=== PATIENT | female | born 1960 | race Caucasian/White ===

== ENCOUNTER 2019-03-01 06:00 | Outpatient (RCR) | payer MEDICAID, SELFPAY | END 2019-03-31 00:01 | LOC: GPT 06:00 | PROVIDERS: Family Provider Nurse Practitioner Family; Visit Provider Nurse Practitioner Family | DX: M54.6 Pain in thoracic spine (principal); G89.29 Other chronic pain | CPT/HCPCS: 97110; 97140 ==

== ENCOUNTER → 2019-05-28 09:46 | Outpatient (BNVA) | payer MEDICAID, SELFPAY | PROVIDERS: Family Provider Nurse Practitioner Family; PCP Nurse Practitioner Family; Visit Provider Family Medicine | DX: C50.919 Malignant neoplasm of unspecified site of unspecified female breast (principal) | CPT/HCPCS: 85025 ==

== ENCOUNTER → 2019-06-01 09:17 | Outpatient (BNVA) | payer MEDICAID, SELFPAY | PROVIDERS: Family Provider Nurse Practitioner Family; PCP Nurse Practitioner Family; Visit Provider Nurse Practitioner Family | DX: C50.919 Malignant neoplasm of unspecified site of unspecified female breast (principal) | CPT/HCPCS: 85025 ==

== ENCOUNTER → 2019-06-04 11:59 | Outpatient (BNVA) | payer MEDICAID, SELFPAY | PROVIDERS: Family Provider Nurse Practitioner Family; PCP Nurse Practitioner Family; Visit Provider Family Medicine | DX: C50.919 Malignant neoplasm of unspecified site of unspecified female breast (principal) | CPT/HCPCS: 85025 ==

== ENCOUNTER → 2019-06-11 09:18 | Outpatient (BNVA) | payer MEDICAID, SELFPAY | PROVIDERS: Family Provider Nurse Practitioner Family; PCP Nurse Practitioner Family; Visit Provider Nurse Practitioner Family | DX: C50.919 Malignant neoplasm of unspecified site of unspecified female breast (principal) | CPT/HCPCS: 85025 ==

== ENCOUNTER → 2019-06-15 10:46 | Outpatient (BNVA) | payer MEDICAID, SELFPAY | PROVIDERS: Family Provider Nurse Practitioner Family; PCP Nurse Practitioner Family; Visit Provider Nurse Practitioner Family | DX: C50.919 Malignant neoplasm of unspecified site of unspecified female breast (principal) | CPT/HCPCS: 85025 ==

== ENCOUNTER → 2019-06-18 13:25 | Outpatient (BNVA) | payer MEDICAID, SELFPAY | PROVIDERS: Family Provider Nurse Practitioner Family; PCP Nurse Practitioner Family; Visit Provider Nurse Practitioner Family | DX: C50.919 Malignant neoplasm of unspecified site of unspecified female breast (principal) | CPT/HCPCS: 85025 ==

== ENCOUNTER → 2019-06-25 10:42 | Outpatient (BNVA) | payer MEDICAID, SELFPAY | PROVIDERS: Family Provider Nurse Practitioner Family; PCP Nurse Practitioner Family; Visit Provider Nurse Practitioner Family | DX: C50.919 Malignant neoplasm of unspecified site of unspecified female breast (principal) | CPT/HCPCS: 85025 ==

== ENCOUNTER → 2019-06-29 10:00 | Outpatient (BNVA) | payer MEDICAID, SELFPAY | PROVIDERS: Family Provider Nurse Practitioner Family; PCP Nurse Practitioner Family; Visit Provider Nurse Practitioner Family | DX: C50.919 Malignant neoplasm of unspecified site of unspecified female breast (principal) | CPT/HCPCS: 85025 ==

== ENCOUNTER → 2019-07-02 09:25 | Outpatient (BNVA) | payer MEDICAID, SELFPAY | PROVIDERS: Family Provider Nurse Practitioner Family; PCP Nurse Practitioner Family; Visit Provider Nurse Practitioner Family | DX: C50.919 Malignant neoplasm of unspecified site of unspecified female breast (principal) | CPT/HCPCS: 85025 ==

== ENCOUNTER → 2019-07-09 09:16 | Outpatient (BNVA) | payer MEDICAID, SELFPAY | PROVIDERS: Family Provider Nurse Practitioner Family; PCP Nurse Practitioner Family; Visit Provider Nurse Practitioner Family | DX: C50.919 Malignant neoplasm of unspecified site of unspecified female breast (principal) | CPT/HCPCS: 85025 ==

== ENCOUNTER → 2019-07-13 11:11 | Outpatient (BNVA) | payer MEDICAID, SELFPAY | PROVIDERS: Family Provider Nurse Practitioner Family; PCP Nurse Practitioner Family; Visit Provider Nurse Practitioner Family | DX: C50.919 Malignant neoplasm of unspecified site of unspecified female breast (principal) | CPT/HCPCS: 85025 ==

== ENCOUNTER → 2019-07-16 09:18 | Outpatient (BNVA) | payer MEDICAID, SELFPAY | PROVIDERS: Family Provider Nurse Practitioner Family; PCP Nurse Practitioner Family; Visit Provider Nurse Practitioner Family | DX: C50.919 Malignant neoplasm of unspecified site of unspecified female breast (principal) | CPT/HCPCS: 85025 ==

== ENCOUNTER → 2019-09-25 11:36 | Outpatient (BNVA) | payer MEDICAID, SELFPAY | PROVIDERS: Family Provider Nurse Practitioner Family; PCP Nurse Practitioner Family; Visit Provider Nurse Practitioner Family | DX: R60.0 Localized edema (principal); M25.571 Pain in right ankle and joints of right foot; W10.8XXA Fall (on) (from) other stairs and steps, initial encounter | CPT/HCPCS: 73610; 73630 ==

== ENCOUNTER 2020-01-05 13:21 | Outpatient (CLI) | payer MEDICAID, SELFPAY ==
--- NOTE | 2020-01-05 17:30 | ONC CON_ITS ---
Dr. Giles New Patient Note Patient: Natividad Guillermo Unit #: [id number]: [id number] Dicatated By: Jennifer Giles M.D.Date of Visit: Jan 05, 2020 Onc MED New Patient/Consult Referring Physician: Gino Ruiz M.D. History of Present Illness: Ms. Natividad Guillermo, is a 59-year-old female with history of stage IIIb invasive lobular carcinoma of left breast with skin involvement diagnosed on February 03, 2019 per ultrasound-guided left breast biopsy which confirmed ER VT positive HER-2/colette negative disease with skin involvement confirmed by left upper areola skin biopsy done on March 13, [address]. [address] PET scan done on March 19, 2019 suggestive of hypermetabolic soft tissue within the subareolar and inferior aspect of left breast. No hypermetabolic thoracic adenopathy or distant metastatic disease seen. 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 Patient underwent thyroid sonogram on April 08, 2019 which confirmed multinodular goiter subsequently on April 16, 2019 underwent ultrasound-guided aspiration of thyroid nodule suggestive of benign lesion.Patient also underwent MRI scan of the brain on March 13, 2019 which was suggestive of 2 adjacent small enhancing foci of abnormal signal at the left anterior superior frontal cortex and subcortical white matter. Metastatic disease cannot be excluded. Follow-up MRI scan was suggested, on June 08, 2019 patient underwent repeat MRI scan of brain and it was reported negative. Patient underwent neoadjuvant chemotherapy in dose dense fashion with Adriamycin Cytoxan x4 followed by dose dense Taxol by weekly x4 Starting on March 19, 2019 and completed on July 06, 2019 subsequently underwent bilateral mastectomy on July 28, 2019 which showed persistent invasive moderately differentiated lobular carcinoma measuring at least 3 x 2 cm with a persistent direct involvement of dermis of skin without overlying skin ulceration. At least 3 additional nodules of invasive moderately differentiated lobular carcinoma found on random sections of surrounding breast parenchyma measuring 7 mm, 8 mm and 8 mm.And right breast mastectomy showed fibrocystic changes with fibrosis, microcyst formation no evidence of malignancy. Margins free of carcinoma with invasive carcinoma located 7 mm from the inferior skin margin and 1 cm or greater from the other margins. Lymph nodes, left axillary, sentinel lymph node biopsy showed metastatic lobular carcinoma in 1 of 2 lymph nodes, measures 5 mm in the greatest dimension and and also extracapsular invasion identified. Started on Femara 2.5 mg on August 17, 2019, patient was offered postmastectomy radiation therapy to left breast and axilla, as per patient because of transportation issue and due to coronavirus the wound at her hospital stay with her, she did not pursue radiation therapy there. As far as ascending thoracic aorta aneurysm is concerned patient underwent CT scan of chest on April 12, 2019 which shows no evidence of pulmonary embolism but saccular aneurysm involving the ascending thoracic aorta. Patient was referred to cardiothoracic surgeon whom she saw on April 16, 2019 as per patient she was advised to finish her recommended treatment for breast cancer then will be evaluated again. Came for follow-up, patient denies any specific complaint except persistent peripheral neuropathy involving bilateral fingertips and feet otherwise no fever chills, no nausea or vomiting, no diarrhea constipation, no new bony pains, tolerating Femara along with vitamin D and calcium supplement well. Past Medical History: Ms. Guillermo's medical history consists of anemia due to chemotherapy, anxiety, ascending aortic aneurysm, cataract, chemo induced neuropathy, chronic kidney disease (stage III), chronic low back pain, degenerative disease of the spine, depression, gastroesophageal reflux disease, hypothyroidism, nontoxic mulinodular goiter, obstructive sleep apnea, postural orthostatic tachycardia syndrome, and thyroid nodule. Past Surgical History: Ms. Guillermo's surgical/procedural history consists of breast biopsy, cholecystectomy, hysterectomy, knee replacement, tonsillectomy, tubal ligation, portacath placement in 2019, and mastectomy in 2019 - bilateral. Medications: Calcium 1 Tablet (of 600 mg) Oral daily, Cetirizine HCl 1 Tablet (of 10 mg) Oral daily, Dicyclomine HCl 1 CA 125 Units/mL (of 10 mg) Capsule Oral PRN, DULoxetine HCl 1 Capsule (of 30 mg) Capsule Delayed Release Particles Oral daily, Ferrous Sulfate (325 (65 fe) mg) Tablet Oral Take as Directed, Flonase 1 [place](s) (of 50 mcg/act) Suspension Nasal PRN, Gabapentin 2 Capsule (of 100 mg) Oral b.i.d., Letrozole 1 Tablet (of 2.5 mg) Oral daily, Montelukast Sodium 1 Tablet (of 10 mg) Oral daily, Naproxen 1 Capsule (of 500 mg) Tablet, enteric coated Oral PRN, Omeprazole 1 CA 125 Units/mL (of 40 mg) Capsule Delayed Release Oral daily, Oxybutynin Chloride 1 Tablet (of 10 mg) Oral daily, Probiotic 1 Capsule Oral daily, Vitamin B Complex 1 Tablet Oral daily, Vitamin D3 1 Tablet (of 5000 Units) Oral q 7 days Allergies: anesthesia, Penicillins, and Sulfa Antibiotics. Social History: Ms. Guillermo is single. Ms. Guillermo no longer smokes. She has no history of drinking. Family History: Ms. Guillermo's mother at age 86: heart disease. Ms. Guillermo's father at age 72: idiopathic thrombocytopenic purpura. Ms. Guillermo has 2 sisters: 2 . Ms. Guillermo's first sister's non-hodgkins. unsure of what cancer the other sister had. Review Of Symptoms: Review of Systems is not available for this patient. Vital Signs: Performed on Jan 05, 2020 14:27: 4, 28.62, 2.18 sq.m, 72.00 in, 99 %, 80 /min, 20 /min, 131/68 mm(hg), 97.6 F (LOW), and 211.0 lbs (HIGH). Performance Status: 1 - No physically strenuous activity, but ambulatory and able to carry out light or sedentary work (e.g. office work, light house work). (ECOG) Physical Examination: [, No mouth sores, no thrush, no jaundice, chest exam shows bilateral mastectomy with well-healed post mastectomy scars.^Respiratory - Lungs are clear to auscultation, Cardiovascular - Regular rate and rhythm of heart, Gastrointestinal - Soft, bowel sounds present, Extremities - No visible edema or rash. Lab/Imaging: Most recent lab results are not available for this patient. Impression: Invasive moderately differentiated lobular carcinoma of the left breast diagnosed on February 03, 2019 per ultrasound-guided biopsy of left breast initial molecular profiling showed ER 93% VT 85% HER-2/colette negative. Underwent left upper areola skin biopsy on March 13, 2019 which confirmed invasive moderately differentiated lobular carcinoma involving the dermis of the skin. T4c lesion CT PET scan done on March 19, 2019 showed hypermetabolic soft tissue within the subareolar and inferior aspect of left breast. No hypermetabolic thoracic adenopathy or distant mets seen. Status post neoadjuvant chemotherapy with dose dense Adriamycin/Cytoxan followed by dose dense Taxol, started on March 19, 2019 and completed on July 06, 2019. Subsequently underwent bilateral mastectomy on July 28, 2019 which showed persistent invasive moderately differentiated lobular carcinoma measuring at least 3 x 2 cm with persistent direct involvement of dermis of skin without overlying skin ulceration. At least 3 additional nodules of invasive moderately differentiated lobular carcinoma found in random sections of surrounding breast parenchyma measuring 7 mm, 8 mm, 8 mm. With clear margins but invasive carcinoma located 7 mm from the inferior skin margin. Left axillary sentinel lymph node biopsy confirmed 1 out of 2 positive lymph nodes metastasis measuring 5 mm in greatest dimension showed extracapsular invasion. Right breast mastectomy shows no evidence of malignancy fibrocystic changes. Started on Femara 2.5 mg daily for 5 years on August 17, 2019. Incidental finding of thyroid nodules underwent ultrasound-guided aspiration of thyroid on April 16, 2025 suggestive of benign lesion. Incidental finding of saccular aneurysm involving ascending thoracic aorta, seen by cardiothoracic surgery on April 16, 2019 in [facility]. Acquired hypothyroidism Peripheral neuropathy due to chemotherapy Depression. Plan: Discussed with patient regarding her disease status and treatment options and follow-up plans, patient is a high risk for local recurrence being having T4 lesion and lymph node biopsy shows extracapsular extension, as per patient she was offered postmastectomy radiation therapy but because of traveling and due to coronavirus, her could not stay with her in [place] so she decided not to proceed with radiation at that time, but she would do if is needed. In that case we will refer her to radiation oncology for evaluation for post mastectomy radiation therapy for better local control, case was discussed with radiation oncology and we will order MRI scan of anterior chest and axilla before her visit to radiation oncology. In the meantime she will continue with Femara 2.5 mg daily along with vitamin D and calcium supplements. And patient has 4 daughters, in that case we will also consider genetic testing BRCA 1 and 2, as per patient she was offered this testing in [place] but at that time she could not afford $500 for the test. And also obtain baseline DEXA scan as patient is on aromatase inhibitor and 1 of the side effect is bone demineralization.And will also continue with port maintenance on monthly basis. Patient will return to clinic in 3 months with CBC CMP and DEXA scan. Signed By: Jennifer Giles M.D. <<Signature on File>>
== END 2020-01-05 13:22 | disposition home or self-care (01) ==
LOC: ONCMED 13:28
PROVIDERS: PCP Nurse Practitioner Family; Visit Provider Internal Medicine Hematology & Oncology
DX: C50.812 Malignant neoplasm of overlapping sites of left female breast (principal); C77.3 Secondary and unspecified malignant neoplasm of axilla and upper limb lymph nodes; Z17.0 Estrogen receptor positive status [ER+]; Z90.13 Acquired absence of bilateral breasts and nipples; E03.9 Hypothyroidism, unspecified; G62.0 Drug-induced polyneuropathy; T45.1X5D Adverse effect of antineoplastic and immunosuppressive drugs, subsequent encounter; F32.9 Major depressive disorder, single episode, unspecified; Z79.811 Long term (current) use of aromatase inhibitors; E04.1 Nontoxic single thyroid nodule; I71.2 Thoracic aortic aneurysm, without rupture; Z92.21 Personal history of antineoplastic chemotherapy
CPT/HCPCS: 36591; 99203

== ENCOUNTER 2020-01-15 10:58 | Outpatient (CLI) | payer MEDICAID, SELFPAY ==
--- NOTE | 2020-01-15 11:14 | XR_ITS ---
WS: [id number] Bone mineral density performed on a [employer] IDXA 01/15/2020 Clinical data: ASYMPTOMATIC POSTMENOPAUSAL STATE Findings: The first 4 lumbar vertebral bodies demonstrated the bone mineral density of 1.023 g/cm2 for a young adult T score of -1.3. Measurement of the left hip reveals a bone mineral density of 0.846 g/cm2 with a young adult T score of -1.3. Measurement of the right hip reveals the bone mineral density of 0.795 g/cm2 for young adult T score of -1.7. XR/XR DEXA axial skeleton* [id number] Impression: Osteopenia of the lumbar spine and both hips.
== END 2020-01-15 10:59 | disposition home or self-care (01) ==
PROVIDERS: PCP Nurse Practitioner Family; Visit Provider Internal Medicine Hematology & Oncology
DX: Z78.0 Asymptomatic menopausal state (principal); M85.88 Other specified disorders of bone density and structure, other site
CPT/HCPCS: 77080

== ENCOUNTER → 2020-01-26 14:32 | Outpatient (BNVA) | payer MEDICAID, SELFPAY | PROVIDERS: PCP Nurse Practitioner Family; Visit Provider Nurse Practitioner Family | DX: M25.511 Pain in right shoulder (principal); M25.611 Stiffness of right shoulder, not elsewhere classified; S49.91XA Unspecified injury of right shoulder and upper arm, initial encounter; Z68.29 Body mass index [BMI] 29.0-29.9, adult | CPT/HCPCS: 73030 ==

== ENCOUNTER 2020-02-05 06:12 | Outpatient (CLI) | payer MEDICAID, SELFPAY | END 2020-02-05 06:13 | disposition home or self-care (01) | LOC: ONCMED 06:12 | PROVIDERS: PCP Nurse Practitioner Family; Visit Provider Internal Medicine Hematology & Oncology | DX: Z45.2 Encounter for adjustment and management of vascular access device (principal) | CPT/HCPCS: 96523 ==

== ENCOUNTER 2020-03-03 14:14 | Outpatient (CLI) | payer MEDICAID, SELFPAY ==
[2020-03-03 15:04] LABS: Basophils # 0.1 10^3/uL (0.0-0.1); Eosinophils # 0.2 10^3/uL (0.0-0.8); Eosinophils % 2.7 %; Hematocrit 34.6 % (37.0-47.0); Hemoglobin 11.8 g/dL (11.5-15.3); Lymphocytes # 1.7 10^3/uL (0.8-4.8); Lymphocytes % 23.5 %; Mean Corpuscular HGB Conc 34.1 g/dL (30.0-36.0); Mean Corpuscular Hemoglobin 32.2 pg (28.0-34.0); Mean Corpuscular Volume 94.3 fL (81-99); Mean Platelet Volume 8.7 fL (7.4-10.4); Monocytes # 0.7 10^3/uL (0.2-0.9); Monocytes % 9.6 %; Neutrophils # 4.53 10^3/uL (1.8-7.7); Nucleated Red Blood Cells % 0 %; Platelet Count 221 10^3/cmm (130-400); Red Blood Count 3.67 10^6/uL (4.1-5.3); Red Cell Distribution Width 11.9 % (12.1-15.1); White Blood Count 7.3 10^3/uL (4.0-10.0)
[2020-03-03 16:00] LABS: Alanine Aminotransferase 49 U/L (0-33); Albumin Level 4.2 g/dL (3.5-5.2); Alkaline Phosphatase 96 IU/L (35-105); Anion Gap 14.8 (5-19); Aspartate Amino Transferase 30 U/L (0-32); Blood Urea Nitrogen 16 mg/dL (6-20); Calcium 9.3 mg/dL (8.5-10.5); Carbon Dioxide 26 mmol/L (22-29); Chloride 101 mmol/L (98-107); Globulin 2.5 g/dL (1.3-4.6); Glucose 119 mg/dL (65-115); Osmolality Calculated 288 mOsm/kg (285-295); Potassium 3.8 mmol/L (3.5-5.1); Sodium 138 mmol/L (136-145); Total Bilirubin 0.2 mg/dL (0.15-1.2); Total Protein 6.7 g/dL (6.6-8.7)
== END 2020-03-03 14:15 | disposition home or self-care (01) ==
LOC: ONCMED 14:16
PROVIDERS: PCP Nurse Practitioner Family; Visit Provider Internal Medicine Hematology & Oncology
DX: C50.812 Malignant neoplasm of overlapping sites of left female breast (principal); Z17.0 Estrogen receptor positive status [ER+]; Z78.0 Asymptomatic menopausal state
CPT/HCPCS: 36591; 80053; 85025

== ENCOUNTER → 2020-03-14 12:58 | Outpatient (BNVA) | payer MEDICAID, SELFPAY | PROVIDERS: PCP Nurse Practitioner Family; Visit Provider Family Medicine | DX: G89.29 Other chronic pain (principal); M54.2 Cervicalgia; M47.892 Other spondylosis, cervical region | CPT/HCPCS: 72040 ==

== ENCOUNTER 2020-04-18 05:40 | Outpatient (RCR) | payer MEDICAID, SELFPAY ==
[2020-04-13 08:52] LABS: Basophils # 0.1 10^3/uL (0.0-0.1); Basophils % 0.9 %; Eosinophils # 0.1 10^3/uL (0.0-0.8); Eosinophils % 2.2 %; Hematocrit 37.1 % (37.0-47.0); Lymphocytes # 1.9 10^3/uL (0.8-4.8); Lymphocytes % 30.2 %; Mean Corpuscular HGB Conc 32.3 g/dL (30.0-36.0); Mean Corpuscular Hemoglobin 31.3 pg (28.0-34.0); Mean Corpuscular Volume 96.9 fL (81-99); Monocytes # 0.7 10^3/uL (0.2-0.9); Monocytes % 10.2 %; Neutrophils # 3.56 10^3/uL (1.8-7.7); Nucleated Red Blood Cells % 0 %; Platelet Count 223 10^3/cmm (130-400); Red Blood Count 3.83 10^6/uL (4.1-5.3); Red Cell Distribution Width 12.1 % (12.1-15.1); White Blood Count 6.4 10^3/uL (4.0-10.0)
[2020-04-13 09:23] LABS: Alanine Aminotransferase 53 U/L (0-33); Alkaline Phosphatase 120 IU/L (35-105); Anion Gap 14.7 (5-19); Aspartate Amino Transferase 29 U/L (0-32); Blood Urea Nitrogen 12 mg/dL (6-20); Calcium 9.4 mg/dL (8.5-10.5); Carbon Dioxide 28 mmol/L (22-29); Chloride 100 mmol/L (98-107); Glomerular Filtration Rate 50.8 mL/min (90-130); Glucose 204 mg/dL (65-115); Osmolality Calculated 294 mOsm/kg (285-295); Potassium 3.7 mmol/L (3.5-5.1); Sodium 139 mmol/L (136-145); Total Bilirubin 0.2 mg/dL (0.15-1.2)
--- NOTE | 2020-04-13 13:36 | ONC FU_ITS ---
Dr. Giles follow up note Patient: Natividad Guillermo Unit #: [id number]: [id number] Dicatated By: Jennifer Giles M.D.Date of Visit:Apr 13, 2020 Onc Med Follow-up/Prog Note History of Present Illness: Ms. Natividad Guillermo, is a 59-year-old female with history of stage IIIb invasive lobular carcinoma of left breast with skin involvement diagnosed on February 03, 2019 per ultrasound-guided left breast biopsy which confirmed ER AL positive HER-2/colette negative disease with skin involvement confirmed by left upper areola skin biopsy done on March 13, 2019. Patient underwent CT PET scan done on March 19, 2019 suggestive of hypermetabolic soft tissue within the subareolar and inferior aspect of left breast. No hypermetabolic thoracic adenopathy or distant metastatic disease seen. 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 Patient underwent thyroid sonogram on April 08, 2019 which confirmed multinodular goiter subsequently on April 16, 2019 underwent ultrasound-guided aspiration of thyroid nodule suggestive of benign lesion.Patient also underwent MRI scan of the brain on March 13, 2019 which was suggestive of 2 adjacent small enhancing foci of abnormal signal at the left anterior superior frontal cortex and subcortical white matter. Metastatic disease cannot be excluded. Follow-up MRI scan was suggested, on June 08, 2019 patient underwent repeat MRI scan of brain and it was reported negative. Patient underwent neoadjuvant chemotherapy in dose dense fashion with Adriamycin Cytoxan x4 followed by dose dense Taxol by weekly x4 Starting on March 19, 2019 and completed on July 06, 2019 subsequently underwent bilateral mastectomy on July 28, 2019 which showed persistent invasive moderately differentiated lobular carcinoma measuring at least 3 x 2 cm with a persistent direct involvement of dermis of skin without overlying skin ulceration. At least 3 additional nodules of invasive moderately differentiated lobular carcinoma found on random sections of surrounding breast parenchyma measuring 7 mm, 8 mm and 8 mm.And right breast mastectomy showed fibrocystic changes with fibrosis, microcyst formation no evidence of malignancy. Margins free of carcinoma with invasive carcinoma located 7 mm from the inferior skin margin and 1 cm or greater from the other margins. Lymph nodes, left axillary, sentinel lymph node biopsy showed metastatic lobular carcinoma in 1 of 2 lymph nodes, measures 5 mm in the greatest dimension and and also extracapsular invasion identified. Started on Femara 2.5 mg on August 17, 2019, patient was offered postmastectomy radiation therapy to left breast and axilla, as per patient because of transportation issue and due to coronavirus the wound at her hospital stay with her, she did not pursue radiation therapy there. As far as ascending thoracic aorta aneurysm is concerned patient underwent CT scan of chest on April 12, 2019 which shows no evidence of pulmonary embolism but saccular aneurysm involving the ascending thoracic aorta. Patient was referred to cardiothoracic surgeon whom she saw on April 16, 2019 as per patient she was advised to finish her recommended treatment for breast cancer then will be evaluated again. MRI scan of the breast done on February 19, 2020 shows no suspicious activity in the bilateral breast, patient is status post bilateral mastectomy DEXA scan done on January 15, 2020 showed osteopenia of lumbar spine and both hips tolerating Femara along with vitamin D and calcium supplement Came for follow-up, denies any specific complaints, no fever chills, no nausea or vomiting, no diarrhea constipation, no new bony pains patient has chronic peripheral neuropathy for which she is taken gabapentin as well as hydrocodone as needed basis., She is tolerating Femara/vitamin D and calcium supplement and also trying 'natural'/alternative therapy Medications: Calcium 1 Tablet (of 600 mg) Oral daily, Cetirizine HCl 1 Tablet (of 10 mg) Oral daily, Dicyclomine HCl 1 CA 125 Units/mL (of 10 mg) Capsule Oral PRN, DULoxetine HCl 1 Capsule (of 30 mg) Capsule Delayed Release Particles Oral daily, Ferrous Sulfate (325 (65 fe) mg) Tablet Oral Take as Directed, Flonase 1 Archie(s) (of 50 mcg/act) Suspension Nasal PRN, Gabapentin 2 Capsule (of 100 mg) Oral b.i.d., Letrozole 1 Tablet (of 2.5 mg) Oral daily, Montelukast Sodium 1 Tablet (of 10 mg) Oral daily, Naproxen 1 Capsule (of 500 mg) Tablet, enteric coated Oral PRN, Omeprazole 1 CA 125 Units/mL (of 40 mg) Capsule Delayed Release Oral daily, Oxybutynin Chloride 1 Tablet (of 10 mg) Oral daily, Probiotic 1 Capsule Oral daily, Vitamin B Complex 1 Tablet Oral daily, Vitamin D3 1 Tablet (of 5000 Units) Oral q 7 days Allergies: anesthesia, Penicillins, and Sulfa Antibiotics. Review of Systems: Review of Systems is not available for this patient. Vital Signs: Performed on Apr 13, 2020 09:35 Height - 72.00 in Weight - 208 lbs (LOW) BSA - 2.17 sq.m BMI - 28.21 Temperature - 98.2 F (LOW) Pulse - 96 /min Respiration - 20 /min BP - 146/80 mm(hg) (HIGH) O2 Sat - 98 % Pain - 5 Performance Status: 1 - No physically strenuous activity, but ambulatory and able to carry out light or sedentary work (e.g. office work, light house work). (ECOG) Physical Examination: Respiratory - Lungs are clear to auscultation, Cardiovascular - Regular rate and rhythm of heart, Gastrointestinal - Soft, bowel sounds present, Extremities - No visible edema or rash. Lab/Imaging: Test performed on Mar 03, 2020 14:50 Sodium 138 mmol/L Potassium 3.8 mmol/L Chloride 101 mmol/L CO2 26 mmol/L Anion Gap 14.8 BUN 16 mg/dL Creatinine 1.2 mg/dL Cr Clearance (Est) 76.2700 mL/min eGFR 46.0 mL/min Glucose 119 mg/dL Osmolality - Calculated 288 mOsm/kg Calcium 9.3 mg/dL Protein, Total 6.7 g/dL Albumin 4.2 g/dL Globulin 2.5 g/dL Bilirubin, Total 0.2 mg/dL ALT (SGPT) 49 U/L AST (SGOT) 30 U/L Alkaline Phosphatase 96 IU/L WBC 7.3 10 3/uL RBC 3.67 10 6/uL HGB 11.8 g/dL HCT 34.6 % MCV 94.3 fL MCH 32.2 pg MCHC 34.1 g/dL RDW 11.9 % Platelet Count 221 10 3/cmm MPV 8.7 fL Neutrophils 4.53 10 3/uL Lymphocytes 1.7 10 3/uL Monocytes 0.7 10 3/uL Eosinophils 0.2 10 3/uL Basophils 0.1 10 3/uL Neutrophil % 62.0 % Lymphocyte % 23.5 % Monocyte % 9.6 % Eosinophil % 2.7 % Basophils % 1.0 % NRBC % 0 % Impression: Invasive moderately differentiated lobular carcinoma of the left breast diagnosed on February 03, 2019 per ultrasound-guided biopsy of left breast initial molecular profiling showed ER 93% AL 85% HER-2/colette negative. Underwent left upper areola skin biopsy on March 13, 2019 which confirmed invasive moderately differentiated lobular carcinoma involving the dermis of the skin. T4c lesion CT PET scan done on March 19, 2019 showed hypermetabolic soft tissue within the subareolar and inferior aspect of left breast. No hypermetabolic thoracic adenopathy or distant mets seen. Status post neoadjuvant chemotherapy with dose dense Adriamycin/Cytoxan followed by dose dense Taxol, started on March 19, 2019 and completed on July 06, 2019. Subsequently underwent bilateral mastectomy on July 28, 2019 which showed persistent invasive moderately differentiated lobular carcinoma measuring at least 3 x 2 cm with persistent direct involvement of dermis of skin without overlying skin ulceration. At least 3 additional nodules of invasive moderately differentiated lobular carcinoma found in random sections of surrounding breast parenchyma measuring 7 mm, 8 mm, 8 mm. With clear margins but invasive carcinoma located 7 mm from the inferior skin margin. Left axillary sentinel lymph node biopsy confirmed 1 out of 2 positive lymph nodes metastasis measuring 5 mm in greatest dimension showed extracapsular invasion. Right breast mastectomy shows no evidence of malignancy fibrocystic changes. Started on Femara 2.5 mg daily for 5 years on August 17, 2019. Incidental finding of thyroid nodules underwent ultrasound-guided aspiration of thyroid on April 16, 2025 suggestive of benign lesion. Incidental finding of saccular aneurysm involving ascending thoracic aorta, seen by cardiothoracic surgery on April 16, 2019 in [facility]. Acquired hypothyroidism Peripheral neuropathy due to chemotherapy Depression. MRI scan of the breast done on February 19, 2020 showed no evidence of suspicious lesion seen in bilateral breast/chest, patient status post bilateral mastectomy DEXA scan done on January 15, 2020 shows osteopenia of the lumbar spine and both hips. Plan: Discussed with patient regarding her labs white blood count 6.4 hemoglobin 12 hematocrit 37.1 platelets 223,000 CMP within normal limit except glucose 204 Clinically, patient is doing well with no new signs symptom suggestive of recurrence of disease. Her follow-up lab work-up is within normal range except hyperglycemia. Patient was referred to radiation oncology in [place] but because of inconvenience, she was supposed to see radiation oncology in [place] with MRI scan of the bilateral breast but patient decided not to see radiation oncology after MRI scan of the breast. Discussed with patient regarding risk of local recurrence and locally advanced disease specially T4 lesion, patient reluctantly agreed to see radiation oncology now. So we will refer her to radiation oncology for evaluation regarding postmastectomy radiation therapy. In the meantime she will continue with Femara and vitamin D and calcium supplement, her DEXA scan shows mild osteopenia and patient was advised to maintain moderate exercise and vitamin D and calcium supplement, it may improve her osteopenia if not then will discuss with her regarding biphosphonate as patient is on Femara she is high risk for developing osteoporosis in the future. Patient is also trying alternative/naturopathic and patient was informed there is no available data regarding interaction between femara and natural herbs, as some herbs especially if they contain estrogen like agents may interfere with effectiveness of hormonal therapy with Femara or may increase toxicity, patient is aware of risk versus benefits with multimodalities. She will return to clinic in 4 months with CBC CMP.And patient is considering her port removal at [facility] in [place] Signed By: Jennifer Giles M.D. <<Signature on File>>
--- NOTE | 2020-04-18 15:05 | N.ONRAD NP_ITS ---
Radiation Oncology Consultation Patient Name: Natividad Guillermo Date of : 1960 Date of Service: 04/18/2020 Attending Physician: Anand Pierson M.D. Natividad Guillermo was seen in consultation this afternoon at the request of Brooke Giles M.D. for evaluation regarding potential post-mastectomy radiotherapy for the management of her newly advanced breast cancer. She presented with two palpable left breast masses. Bilateral diagnostic mammography ordered on January 19, 2019 revealed a 3 cm spiculated mass in the left breast. Ultrasonography confirmed within the 2:00 to 3:00 position of the left breast, 4 cm from the nipple, a spiculated mass measuring 2.9 cm x 2.8 cm with subareolar thickening of the nipple associated with retraction of the nipple. A core needle biopsy obtained on February 03, 2019 diagnosed a grade 2 invasive lobular carcinoma. The breast cancer prognostic profile was positive for estrogen receptor (93%) and progesterone receptor (85%), estrogen receptor, but negative for HER-2 (no Ki-67 reported). A skin biopsy of the left upper areola completed on 2018 demonstrated lobular carcinoma. A PET CT ordered on March 19, 2019 demonstrated FDG activity in the left breast corresponding to the known breast cancer without hypermetabolic distant metastases (clinical stage IIIB - T4dN0). MRI of the brain requested on March 30, 2019 identified 2 adjacent small enhancing foci of abnormal signal in the left crystal-superior frontal cortex. Neoadjuvant chemotherapy (dose dense Adriamycin and cyclophosphamide for 4 cycles and paclitaxel for 4 cycles; Gino Ruiz M.D.-medical oncologist at [facility] in [place], [place]) was administered between the dates of March 19, 2019 through July 06, 2019 A repeat MR acquired on June 08, 2019 failed to identify prior lesions. A bilateral mastectomy with a left sentinel lymph node biopsy was performed on July 28, 2019 by Hansel Short D.O. The pathology report (personally reviewed in [facility]) diagnosed a persistent grade 2 multifocal invasive lobular carcinoma measuring 3 cm (dermis involved-no ulceration) with two harvested sentinel lymph nodes harboring 1 macrometastasis measuring 5 mm with extranodal extension. All surgical margins were negative (7 mm from skin -stage yIIIB ???T4dN1a). The right mastectomy specimen did not identify malignancy. She refused post-mastectomy radiotherapy. An MRI of the lateral chest garcia conducted on February 19, 2020 demonstrated no suspicious abnormality within the right or left chest garcia. I reviewed with the patient her AJCC initial clinical stage IIIB (T4dN0) breast cancer, in addition to her pathological stage yIIIB - T4dN1a. I also discussed The National Comprehensive Cancer Network Guidelines for post-operative radiotherapy in patients with positive lymph node metastases. In addition, I described the classic studies by the [employer] [facility] and the Early Breast Cancer Trialists??? Collaborative Group. She is aware that these studies demonstrated an overall survival improvement in patients treated with post-mastectomy radiotherapy. Of note, a meta-analysis published in the Radiotherapy and Oncology Journal indicated that increased wait time for patients who had a delay in implementing radiotherapy there was a decrease local regional control (HR 1.11). The recent MRI failing to identify recurrent disease is reassuring. I recommend a 5 week course of chest wall and regional lymph node radiotherapy. A computed tomographic scan in the treatment position will be acquired for radiotherapy planning. The potential toxicity of post-mastectomy radiotherapy was also addressed. The patient has verbalized understanding would like to discuss treatment with her family. Signed by: Dr. Anand Pierson 04/18/2020 3:04:04 PM
== END 2020-05-01 23:59 | disposition home or self-care (01) ==
LOC: ONCMED 05:40
PROVIDERS: Internal Medicine Hematology & Oncology; PCP Nurse Practitioner Family; Visit Provider Radiology Radiation Oncology
DX: C50.812 Malignant neoplasm of overlapping sites of left female breast (principal); Z17.0 Estrogen receptor positive status [ER+]; C77.8 Secondary and unspecified malignant neoplasm of lymph nodes of multiple regions; E04.2 Nontoxic multinodular goiter; I71.4 Abdominal aortic aneurysm, without rupture; E03.9 Hypothyroidism, unspecified; G62.0 Drug-induced polyneuropathy; T45.1X5A Adverse effect of antineoplastic and immunosuppressive drugs, initial encounter; F32.9 Major depressive disorder, single episode, unspecified; R73.9 Hyperglycemia, unspecified; Z78.0 Asymptomatic menopausal state; Z79.899 Other long term (current) drug therapy
CPT/HCPCS: 36591; 80053; 85025; 99205; 99214

== ENCOUNTER → 2020-04-19 10:26 | Outpatient (BNVA) | payer MEDICAID, SELFPAY | PROVIDERS: PCP Nurse Practitioner Family; Referring Provider Internal Medicine Hematology & Oncology; Visit Provider Anesthesiology | DX: C50.919 Malignant neoplasm of unspecified site of unspecified female breast (principal); M25.511 Pain in right shoulder; M25.611 Stiffness of right shoulder, not elsewhere classified; C80.1 Malignant (primary) neoplasm, unspecified; G63 Polyneuropathy in diseases classified elsewhere; Z79.891 Long term (current) use of opiate analgesic | CPT/HCPCS: 99204 ==

== ENCOUNTER 2020-05-04 06:00 | Outpatient (RCR) | payer MEDICAID, SELFPAY | END 2020-05-29 23:59 | disposition home or self-care (01) | LOC: GPT 06:00 | PROVIDERS: PCP Nurse Practitioner Family; Referring Provider Nurse Practitioner Family; Visit Provider Nurse Practitioner Family | DX: M54.2 Cervicalgia (principal); G89.29 Other chronic pain | CPT/HCPCS: 97110; 97140; 97162; 97530 ==

== ENCOUNTER → 2020-05-25 10:23 | Outpatient (BNVA) | payer MEDICAID, SELFPAY | PROVIDERS: PCP Nurse Practitioner Family; Visit Provider Anesthesiology | DX: G89.29 Other chronic pain (principal); M79.643 Pain in unspecified hand; M79.673 Pain in unspecified foot; M25.511 Pain in right shoulder; M25.611 Stiffness of right shoulder, not elsewhere classified; M54.2 Cervicalgia; C80.1 Malignant (primary) neoplasm, unspecified; G63 Polyneuropathy in diseases classified elsewhere; Z79.891 Long term (current) use of opiate analgesic | CPT/HCPCS: 99214 ==

== ENCOUNTER → 2020-06-06 08:11 | Outpatient (BNVA) | payer MEDICAID, SELFPAY | PROVIDERS: PCP Nurse Practitioner Family; Referring Provider Nurse Practitioner Family; Visit Provider Internal Medicine | DX: E04.1 Nontoxic single thyroid nodule (principal); E06.3 Autoimmune thyroiditis; G62.9 Polyneuropathy, unspecified; H53.2 Diplopia; M79.10 Myalgia, unspecified site | CPT/HCPCS: 99205 ==

== ENCOUNTER → 2020-06-10 09:29 | Outpatient (BNVA) | payer MEDICAID, SELFPAY | PROVIDERS: PCP Nurse Practitioner Family; Visit Provider Dermatology | DX: E04.9 Nontoxic goiter, unspecified (principal); G62.9 Polyneuropathy, unspecified; E06.3 Autoimmune thyroiditis; I71.9 Aortic aneurysm of unspecified site, without rupture; D50.9 Iron deficiency anemia, unspecified; M79.10 Myalgia, unspecified site | CPT/HCPCS: 80053; 80061; 82306; 82607; 82728; 83036; 83516; 83550; 84439; 84443; 85025 ==

== ENCOUNTER 2020-06-30 14:32 | Outpatient (CLI) | payer MEDICAID, SELFPAY ==
--- NOTE | 2020-06-30 15:00 | US_ITS ---
WS: [id number] THYROID ULTRASOUND (TI-RADS CRITERIA) History: Goiter with nodules.. Technique: Ultrasound examination of the thyroid and adjacent soft tissues is performed. Comparison: 04/08/2019. FINDINGS: Right lobe: 6.9 cm x 3.1 cm x 3.3 cm. Volume: 36.2 cm3. Thyroid is enlarged and heterogeneous. No significant increased vascularity. The entire gland is hete rogeneous without a discrete nodule. There is a calcification in the central gland which is coarse. Left lobe: 6.8 cm x 2.5 cm x 2.9 cm. Volume: 25.6 cm3. Enlarged heterogeneous gland. The entire gland is heterogeneous without a focal discrete nodule. Ther e is a very coarse calcification with shadowing in the posterior mid thyroid. This calcification bobby ures 5 x 7 x 5 mm. Not likely possible for biopsy due to its position and the dense calcification. Isthmus: 0.9 cm. Bilateral cervical chain lymph nodes appear benign. US/US thyroid [id number] Impression: 1. Enlarged heterogeneous nodular gland. There are no discrete nodule amongst the heterogeneity for which biopsy can be directed. This is probably a multinod ular goiter. If there is concern for thyroid cancer surgical removal may be nec essary as there is no one portion of the gland that appears more suspicious gloria n another. 2. No cervical chain adenopathy.
== END 2020-06-30 14:33 | disposition home or self-care (01) ==
LOC: US 14:35
PROVIDERS: PCP Nurse Practitioner Family; Visit Provider Internal Medicine
DX: E04.9 Nontoxic goiter, unspecified (principal); E04.2 Nontoxic multinodular goiter
CPT/HCPCS: 76536

== ENCOUNTER 2020-07-11 10:04 | Outpatient (CLI) | payer MEDICAID, SELFPAY ==
--- NOTE | 2020-07-11 10:43 | MR_ITS ---
WS: [id number] MRI HEAD WITHOUT AND WITH GADOLINIUM ENHANCEMENT WITH ORBIT PROTOCOL. TECHNIQUE: Noncontrast axial T1, axial T2 FSE fat sat, coronal T2 fat sat, coronal T1, coronal T1 fat sat, sagittal T2 fat sat, plus contrast enhanced coronal, sagittal, and axial T1 fat sat images obta ined. Post gadolinium images with attention to the orbits with fat saturation technique. CLINICAL INFORMATION: SIXTH ABDUCENT NERVE PALSY, LEFT EYE COMPARISON: Outside MRI MRI June 08, 2019 and FINDINGS: No evidence of restricted diffusion to suggest acute ischemia. Ventricular system and basal cisterns are patent. Mild patchy supratentorial white matter changes in the periventricular and subcortical di stribution slightly progressed since June 08, 2019. Normal juan. Normal posterior fossa. Mild parenc hymal volume loss. Paranasal sinuses and mastoid air cells are well aerated. Mild mucosal thickening in the mastoid tips. Normal optic chiasm and pituitary infundibulum. Normal temporal lobes and hippocampal formations. Nor mal cavernous sinuses and Meckel's cave. Prechiasmatic optic nerves are normal in appearance. Inciden jackie perivascular space left basal ganglia is unchanged. No optic nerve edema. Dural venous sinuses ap pear normal. MR/MR orbit face neck wo/w* [id number] IMPRESSION: 1. No evidence of restricted diffusion to suggest acute ischemia. 2. Normal optic chiasm and pituitary infundibulum. Normal cavernous sinuses an d Meckel's caves. 3. Intraorbital contents appear normal. 4. Mild supratentorial white matter changes nonspecific in a patient this age but can be seen with hypertension, diabetes, small vessel changes and migraine headaches. This is progressed slightly since May 2019. 5. Mild parenchymal volume loss. 6. No abnormal gadolinium enhancement. 7. Incidental unchanged prominent perivascular space left basal ganglia.
[2020-07-11] MEDS: gadobenate dimeglumine 20 mL vial IV (11:27)
== END 2020-07-11 10:05 | disposition home or self-care (01) ==
PROVIDERS: PCP Nurse Practitioner Family; Visit Provider Ophthalmology
DX: H49.22 Sixth [abducent] nerve palsy, left eye (principal); G25.89 Other specified extrapyramidal and movement disorders
CPT/HCPCS: 70543; A9577

== ENCOUNTER 2020-08-18 12:03 | Outpatient (CLI) | payer MEDICAID, SELFPAY ==
[2020-08-18 12:44] LABS: Basophils # 0.1 10^3/uL (0.0-0.1); Basophils % 0.8 %; Eosinophils # 0.1 10^3/uL (0.0-0.8); Eosinophils % 1.5 %; Hematocrit 42.1 % (37.0-47.0); Hemoglobin 13.9 g/dL (11.5-15.3); Lymphocytes # 2.4 10^3/uL (0.8-4.8); Lymphocytes % 25.6 %; Mean Corpuscular Hemoglobin 31.7 pg (28.0-34.0); Mean Corpuscular Volume 95.9 fL (81-99); Mean Platelet Volume 9.1 fL (7.4-10.4); Monocytes # 0.9 10^3/uL (0.2-0.9); Monocytes % 9.3 %; Neutrophils # 5.88 10^3/uL (1.8-7.7); Neutrophils % 62.4 %; Nucleated Red Blood Cells % 0 %; Platelet Count 258 10^3/cmm (130-400); Red Blood Count 4.39 10^6/uL (4.1-5.3); Red Cell Distribution Width 12.6 % (12.1-15.1); White Blood Count 9.4 10^3/uL (4.0-10.0)
[2020-08-18 13:03] LABS: Alanine Aminotransferase 42 U/L (0-33); Albumin Level 4.3 g/dL (3.5-5.2); Alkaline Phosphatase 120 IU/L (35-105); Anion Gap 14.8 (5-19); Aspartate Amino Transferase 24 U/L (0-32); Blood Urea Nitrogen 16 mg/dL (6-20); Calcium 9.2 mg/dL (8.5-10.5); Carbon Dioxide 29 mmol/L (22-29); Chloride 99 mmol/L (98-107); Globulin 3.3 g/dL (1.3-4.6); Glucose 80 mg/dL (65-115); Osmolality Calculated 288 mOsm/kg (285-295); Potassium 3.8 mmol/L (3.5-5.1); Sodium 139 mmol/L (136-145); Total Bilirubin 0.3 mg/dL (0.15-1.2); Total Protein 7.6 g/dL (6.6-8.7)
--- NOTE | 2020-08-18 18:12 | ONC FU_ITS ---
Dr. Giles follow up note Patient: Natividad Guillermo Unit #: [id number]: 1960 Dicatated By: Jennifer Giles M.D.Date of Visit:August 18, 2020 Onc Med Follow-up/Prog Note History of Present Illness: Ms. Natividad Guillermo, is a 59-year-old female with history of stage IIIb invasive lobular carcinoma of left breast with skin involvement diagnosed on February 03, 2019 per ultrasound-guided left breast biopsy which confirmed ER OH positive HER-2/colette negative disease with skin involvement confirmed by left upper areola skin biopsy done on March 13, [address]. [address] PET scan done on March 19, 2019 suggestive of hypermetabolic soft tissue within the subareolar and inferior aspect of left breast. No hypermetabolic thoracic adenopathy or distant metastatic disease seen. 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 Patient underwent thyroid sonogram on April 08, 2019 which confirmed multinodular goiter subsequently on April 16, 2019 underwent ultrasound-guided aspiration of thyroid nodule suggestive of benign lesion.Patient also underwent MRI scan of the brain on March 13, 2019 which was suggestive of 2 adjacent small enhancing foci of abnormal signal at the left anterior superior frontal cortex and subcortical white matter. Metastatic disease cannot be excluded. Follow-up MRI scan was suggested, on June 08, 2019 patient underwent repeat MRI scan of brain and it was reported negative. Patient underwent neoadjuvant chemotherapy in dose dense fashion with Adriamycin Cytoxan x4 followed by dose dense Taxol by weekly x4 Starting on March 19, 2019 and completed on July 06, 2019 subsequently underwent bilateral mastectomy on July 28, 2019 which showed persistent invasive moderately differentiated lobular carcinoma measuring at least 3 x 2 cm with a persistent direct involvement of dermis of skin without overlying skin ulceration. At least 3 additional nodules of invasive moderately differentiated lobular carcinoma found on random sections of surrounding breast parenchyma measuring 7 mm, 8 mm and 8 mm.And right breast mastectomy showed fibrocystic changes with fibrosis, microcyst formation no evidence of malignancy. Margins free of carcinoma with invasive carcinoma located 7 mm from the inferior skin margin and 1 cm or greater from the other margins. Lymph nodes, left axillary, sentinel lymph node biopsy showed metastatic lobular carcinoma in 1 of 2 lymph nodes, measures 5 mm in the greatest dimension and and also extracapsular invasion identified. Started on Femara 2.5 mg on August 17, 2019, patient was offered postmastectomy radiation therapy to left breast and axilla, as per patient because of transportation issue and due to coronavirus the wound at her hospital stay with her, she did not pursue radiation therapy there. As far as ascending thoracic aorta aneurysm is concerned patient underwent CT scan of chest on April 12, 2019 which shows no evidence of pulmonary embolism but saccular aneurysm involving the ascending thoracic aorta. Patient was referred to cardiothoracic surgeon whom she saw on April 16, 2019 as per patient she was advised to finish her recommended treatment for breast cancer then will be evaluated again. MRI scan of the breast done on February 19, 2020 shows no suspicious activity in the bilateral breast, patient is status post bilateral mastectomy DEXA scan done on January 15, 2020 showed osteopenia of lumbar spine and both hips tolerating Femara along with vitamin D and calcium supplement Patient was referred to radiation oncology for post surgical radiation, patient saw Dr. Pierson and somehow decided not to pursue radiation therapy AGAINST MEDICAL ADVICE Came for follow-up, denies any specific complaints, no fever chills, no nausea or vomiting, no diarrhea constipation, as per patient she has seen Dr. Lechuga, regarding thoracic aortic aneurysm, patient was also seen by radiation oncology but patient is refusing radiation therapy knowing the risk versus benefits, but would continue with Femara along with vitamin D and calcium supplements Medications: Biotin 1 Tablet (of 2.5 mg) Oral b.i.d., Calcium 1 Tablet (of 600 mg) Oral daily, Cetirizine HCl 1 Tablet (of 10 mg) Oral daily, Dicyclomine HCl 1 CA 125 Units/mL (of 10 mg) Capsule Oral PRN, DULoxetine HCl 1 Capsule (of 30 mg) Capsule Delayed Release Particles Oral daily, Ferrous Sulfate (325 (65 fe) mg) Tablet Oral Take as Directed, Flonase 1 Humptulips(s) (of 50 mcg/act) Suspension Nasal PRN, Gabapentin 2 Capsule (of 100 mg) Oral b.i.d., HM Zinc 1 Tablet (of 50 mg) Oral daily, HYDROcodone-Acetaminophen 1 Tablet (of 10-325 mg) Oral b.i.d., Letrozole 1 Tablet (of 2.5 mg) Oral daily, Montelukast Sodium 1 Tablet (of 10 mg) Oral daily, Omeprazole 1 CA 125 Units/mL (of 40 mg) Capsule Delayed Release Oral daily, Oxybutynin Chloride 1 Tablet (of 10 mg) Oral daily, Probiotic 1 Capsule Oral daily, Selenium 1 Tablet (of 100 mcg) Oral daily, Vitamin B Complex 1 Tablet Oral daily, Vitamin D3 1 Tablet (of 5000 Units) Oral q 7 days Allergies: anesthesia, Penicillins, and Sulfa Antibiotics. Review of Systems: Review of Systems is not available for this patient. Vital Signs: Performed on August 18, 2020 14:03 Height - 72.00 in Weight - 219.6 lbs (LOW) BSA - 2.22 sq.m BMI - 29.78 Performed on August 18, 2020 13:44 Height - 72.00 in BSA - 0.00 sq.m BMI - 0.00 Temperature - 98.5 F Pulse - 94 /min Respiration - 18 /min BP - 117/67 mm(hg) O2 Sat - 98 % Pain - 5 Fatigue - 0 Performance Status: 0 - Fully active, able to carry on all predisease activities without restrictions. (ECOG) Physical Examination: Hematologic/Lymphatic - Mild fullness in left posterior upper neck, nontender,No overlying skin changes, Respiratory - Lungs are clear to auscultation, Cardiovascular - Regular rate and rhythm of heart , Gastrointestinal - Soft, bowel sounds present, Extremities - No visible edema or rash. Lab/Imaging: Test performed on Apr 13, 2020 08:25 Sodium 139 mmol/L Potassium 3.7 mmol/L Chloride 100 mmol/L CO2 28 mmol/L Anion Gap 14.7 BUN 12 mg/dL Creatinine 1.1 mg/dL Cr Clearance (Est) 82.02 mL/min eGFR 50.8 mL/min Glucose 204 mg/dL Osmolality - Calculated 294 mOsm/kg Calcium 9.4 mg/dL Protein, Total 7.0 g/dL Albumin 4.0 g/dL Globulin 3.0 g/dL Bilirubin, Total 0.2 mg/dL ALT (SGPT) 53 U/L AST (SGOT) 29 U/L Alkaline Phosphatase 120 IU/L WBC 6.4 10 3/uL RBC 3.83 10 6/uL HGB 12.0 g/dL HCT 37.1 % MCV 96.9 fL MCH 31.3 pg MCHC 32.3 g/dL RDW 12.1 % Platelet Count 223 10 3/cmm MPV 9.0 fL Neutrophils 3.56 10 3/uL Lymphocytes 1.9 10 3/uL Monocytes 0.7 10 3/uL Eosinophils 0.1 10 3/uL Basophils 0.1 10 3/uL Neutrophil % 56.0 % Lymphocyte % 30.2 % Monocyte % 10.2 % Eosinophil % 2.2 % Basophils % 0.9 % NRBC % 0 % Impression: Invasive moderately differentiated lobular carcinoma of the left breast diagnosed on February 03, 2019 per ultrasound-guided biopsy of left breast initial molecular profiling showed ER 93% OH 85% HER-2/colette negative. Underwent left upper areola skin biopsy on March 13, 2019 which confirmed invasive moderately differentiated lobular carcinoma involving the dermis of the skin. T4c lesion CT PET scan done on March 19, 2019 showed hypermetabolic soft tissue within the subareolar and inferior aspect of left breast. No hypermetabolic thoracic adenopathy or distant mets seen. Status post neoadjuvant chemotherapy with dose dense Adriamycin/Cytoxan followed by dose dense Taxol, started on March 19, 2019 and completed on July 06, 2019. Subsequently underwent bilateral mastectomy on July 28, 2019 which showed persistent invasive moderately differentiated lobular carcinoma measuring at least 3 x 2 cm with persistent direct involvement of dermis of skin without overlying skin ulceration. At least 3 additional nodules of invasive moderately differentiated lobular carcinoma found in random sections of surrounding breast parenchyma measuring 7 mm, 8 mm, 8 mm. With clear margins but invasive carcinoma located 7 mm from the inferior skin margin. Left axillary sentinel lymph node biopsy confirmed 1 out of 2 positive lymph nodes metastasis measuring 5 mm in greatest dimension showed extracapsular invasion. Right breast mastectomy shows no evidence of malignancy fibrocystic changes. Started on Femara 2.5 mg daily for 5 years on August 17, 2019. Incidental finding of thyroid nodules underwent ultrasound-guided aspiration of thyroid on April 16, 2025 suggestive of benign lesion. Incidental finding of saccular aneurysm involving ascending thoracic aorta, seen by cardiothoracic surgery on April 16, 2019 in [facility]. Acquired hypothyroidism Peripheral neuropathy due to chemotherapy Depression. MRI scan of the breast done on February 19, 2020 showed no evidence of suspicious lesion seen in bilateral breast/chest, patient status post bilateral mastectomy DEXA scan done on January 15, 2020 shows osteopenia of the lumbar spine and both hips. Plan: Discussed with patient regarding her labs white blood count 9.4 hemoglobin 13.9 hematocrit 42.1 platelets 258,000 CMP within normal limits except creatinine 1.2 and alkaline phosphatase 120 Clinically, patient doing well with no new signs symptom suggestive of recurrence of disease, only concern she has left posterior upper neck fullness which is there for long time now somewhat more prominent she had thyroid ultrasound done on June 30, 2020 which showed no cervical lymphadenopathy but enlarged heterogeneous nodular gland probably multinodular goiter, also had MRI scan of the head done on July 11, 2020 which showed no acute ischemia but mild supratentorial white matter changes , Patient will continue with oral Femara along with vitamin D and calcium supplement, she was evaluated by radiation oncology for postsurgical radiation therapy for locally advanced breast cancer, Patient declined. At this point will consider sonogram of left posterior upper neck and if it shows any abnormality, will consider CT PET scan otherwise see her back in 3 months with CBC CMP Signed By: Jennifer Giles M.D. <<Signature on File>>
== END 2020-08-18 12:04 | disposition home or self-care (01) ==
LOC: ONCMED 12:06
PROVIDERS: PCP Nurse Practitioner Family; Visit Provider Internal Medicine Hematology & Oncology
DX: C50.812 Malignant neoplasm of overlapping sites of left female breast (principal); Z17.0 Estrogen receptor positive status [ER+]; E55.9 Vitamin D deficiency, unspecified; C77.3 Secondary and unspecified malignant neoplasm of axilla and upper limb lymph nodes; E03.9 Hypothyroidism, unspecified; Z79.811 Long term (current) use of aromatase inhibitors; Z92.21 Personal history of antineoplastic chemotherapy; G62.0 Drug-induced polyneuropathy; T45.1X5A Adverse effect of antineoplastic and immunosuppressive drugs, initial encounter; F32.9 Major depressive disorder, single episode, unspecified; Z90.13 Acquired absence of bilateral breasts and nipples
CPT/HCPCS: 36415; 80053; 85025; 99214

== ENCOUNTER → 2020-08-23 09:55 | Outpatient (BNVA) | payer MEDICAID, SELFPAY | PROVIDERS: PCP Nurse Practitioner Family; Visit Provider Nurse Practitioner Family | DX: M85.861 Other specified disorders of bone density and structure, right lower leg (principal); M25.561 Pain in right knee | CPT/HCPCS: 73562 ==

== ENCOUNTER 2020-09-22 07:34 | Outpatient (CLI) | payer MEDICAID, SELFPAY ==
--- NOTE | 2020-09-22 07:41 | US_ITS ---
WS: [id number] ULTRASOUND SOFT TISSUES posterior LEFT neck. HISTORY: BREAST CANCER COMPARISON: None available. TECHNIQUE: 2-D and color Doppler imaging is submitted. Ultrasound is performed in the area of interest over the posterior LEFT neck. In the palpable area th ere is a very small hypoechoic nodule measuring 7 x 4 x 6 mm. Very minimal central increased vascular ity. This has the appearance of the small benign lymph node. No additional masses or nodules. US/US soft tissue head neck [id number] IMPRESSION: Palpable nodule has appearance of a very small benign-appearing lymph node. If this lymph node progress is in size consider follow-up neck CT with contrast.
== END 2020-09-22 07:35 | disposition home or self-care (01) ==
LOC: RAD 07:36
PROVIDERS: PCP Nurse Practitioner Family; Visit Provider Internal Medicine Hematology & Oncology
DX: C50.919 Malignant neoplasm of unspecified site of unspecified female breast (principal)
CPT/HCPCS: 76536

== ENCOUNTER 2020-10-04 13:56 | Outpatient (CLI) | payer MEDICAID, SELFPAY ==
[2020-10-04 14:36] LABS: Basophils # 0.1 10^3/uL (0.0-0.1); Basophils % 1.6 %; Eosinophils # 0.2 10^3/uL (0.0-0.8); Eosinophils % 3.6 %; Hematocrit 41.1 % (37.0-47.0); Hemoglobin 13.4 g/dL (11.5-15.3); Lymphocytes # 2.6 10^3/uL (0.8-4.8); Lymphocytes % 38.7 %; Mean Corpuscular HGB Conc 32.6 g/dL (30.0-36.0); Mean Corpuscular Hemoglobin 31.3 pg (28.0-34.0); Mean Platelet Volume 8.9 fL (7.4-10.4); Monocytes # 0.6 10^3/uL (0.2-0.9); Monocytes % 9.4 %; Neutrophils % 46.4 %; Nucleated Red Blood Cells % 0 %; Platelet Count 275 10^3/cmm (130-400); Red Blood Count 4.28 10^6/uL (4.1-5.3); White Blood Count 6.7 10^3/uL (4.0-10.0)
[2020-10-04 14:55] LABS: Alanine Aminotransferase 52 U/L (0-33); Albumin Level 4.3 g/dL (3.5-5.2); Alkaline Phosphatase 123 IU/L (35-105); Anion Gap 13.6 (5-19); Aspartate Amino Transferase 39 U/L (0-32); Blood Urea Nitrogen 15 mg/dL (6-20); Calcium 9.4 mg/dL (8.5-10.5); Carbon Dioxide 29 mmol/L (22-29); Chloride 102 mmol/L (98-107); Globulin 2.4 g/dL (1.3-4.6); Glomerular Filtration Rate 41.9 mL/min (90-130); Glucose 109 mg/dL (65-115); Osmolality Calculated 293 mOsm/kg (285-295); Potassium 3.6 mmol/L (3.5-5.1); Sodium 141 mmol/L (136-145); Total Bilirubin 0.3 mg/dL (0.15-1.2); Total Protein 6.7 g/dL (6.6-8.7)
[2020-10-04 15:15] LABS: Slide Review Slide Review Perform
--- NOTE | 2020-10-04 16:39 | ONC FU_ITS ---
Dr. Giles follow up note Patient: Natividad Guillermo Unit #: [id number]: [id number] Dicatated By: Jennifer Giles M.D.Date of Visit:Oct 04, 2020 Onc Med Follow-up/Prog Note History of Present Illness: Ms. Natividad Guillermo, is a 59-year-old female with history of stage IIIb invasive lobular carcinoma of left breast with skin involvement diagnosed on February 03, 2019 per ultrasound-guided left breast biopsy which confirmed ER [place] positive HER-2/colette negative disease with skin involvement confirmed by left upper areola skin biopsy done on March 13, [address]. [address] PET scan done on March 19, 2019 suggestive of hypermetabolic soft tissue within the subareolar and inferior aspect of left breast. No hypermetabolic thoracic adenopathy or distant metastatic disease seen. 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 Patient underwent thyroid sonogram on April 08, 2019 which confirmed multinodular goiter subsequently on April 16, 2019 underwent ultrasound-guided aspiration of thyroid nodule suggestive of benign lesion.Patient also underwent MRI scan of the brain on March 13, 2019 which was suggestive of 2 adjacent small enhancing foci of abnormal signal at the left anterior superior frontal cortex and subcortical white matter. Metastatic disease cannot be excluded. Follow-up MRI scan was suggested, on June 08, 2019 patient underwent repeat MRI scan of brain and it was reported negative. Patient underwent neoadjuvant chemotherapy in dose dense fashion with Adriamycin Cytoxan x4 followed by dose dense Taxol by weekly x4 Starting on March 19, 2019 and completed on July 06, 2019 subsequently underwent bilateral mastectomy on July 28, 2019 which showed persistent invasive moderately differentiated lobular carcinoma measuring at least 3 x 2 cm with a persistent direct involvement of dermis of skin without overlying skin ulceration. At least 3 additional nodules of invasive moderately differentiated lobular carcinoma found on random sections of surrounding breast parenchyma measuring 7 mm, 8 mm and 8 mm.And right breast mastectomy showed fibrocystic changes with fibrosis, microcyst formation no evidence of malignancy. Margins free of carcinoma with invasive carcinoma located 7 mm from the inferior skin margin and 1 cm or greater from the other margins. Lymph nodes, left axillary, sentinel lymph node biopsy showed metastatic lobular carcinoma in 1 of 2 lymph nodes, measures 5 mm in the greatest dimension and and also extracapsular invasion identified. Started on Femara 2.5 mg on August 17, 2019, patient was offered postmastectomy radiation therapy to left breast and axilla, as per patient because of transportation issue and due to coronavirus the wound at her hospital stay with her, she did not pursue radiation therapy there. As far as ascending thoracic aorta aneurysm is concerned patient underwent CT scan of chest on April 12, 2019 which shows no evidence of pulmonary embolism but saccular aneurysm involving the ascending thoracic aorta. Patient was referred to cardiothoracic surgeon whom she saw on April 16, 2019 as per patient she was advised to finish her recommended treatment for breast cancer then will be evaluated again. MRI scan of the breast done on February 19, 2020 shows no suspicious activity in the bilateral breast, patient is status post bilateral mastectomy DEXA scan done on January 15, 2020 showed osteopenia of lumbar spine and both hips tolerating Femara along with vitamin D and calcium supplement Patient was referred to radiation oncology for post surgical radiation, patient saw Dr. Pierson and somehow decided not to pursue radiation therapy AGAINST MEDICAL ADVICE Ultrasound soft tissue left posterior neck done on September 22, 2020 showed palpable nodule has appearance of very small benign appearing lymph node Came for follow-up, denies any specific complaints, except right knee pain for which she had cortisone injection done which did help her not being followed by orthopedics otherwise no fever chills, no nausea or vomiting, no diarrhea or constipation, no night sweats, tolerating Femara/vitamin D/calcium supplement well otherwise Medications: Biotin 1 Tablet (of 2.5 mg) Oral b.i.d., Calcium 1 Tablet (of 600 mg) Oral daily, Cetirizine HCl 1 Tablet (of 10 mg) Oral daily, Dicyclomine HCl 1 CA 125 Units/mL (of 10 mg) Capsule Oral PRN, DULoxetine HCl 1 Capsule (of 30 mg) Capsule Delayed Release Particles Oral daily, Ferrous Sulfate (325 (65 fe) mg) Tablet Oral Take as Directed, Flonase 1 [place](s) (of 50 mcg/act) Suspension Nasal PRN, Gabapentin 2 Capsule (of 100 mg) Oral b.i.d., HM Zinc 1 Tablet (of 50 mg) Oral daily, HYDROcodone-Acetaminophen 1 Tablet (of 10-325 mg) Oral b.i.d., Letrozole 1 Tablet (of 2.5 mg) Oral daily, Montelukast Sodium 1 Tablet (of 10 mg) Oral daily, Omeprazole 1 CA 125 Units/mL (of 40 mg) Capsule Delayed Release Oral daily, Oxybutynin Chloride 1 Tablet (of 10 mg) Oral daily, Probiotic 1 Capsule Oral daily, Selenium 1 Tablet (of 100 mcg) Oral daily, Vitamin B Complex 1 Tablet Oral daily, Vitamin D3 1 Tablet (of 5000 Units) Oral q 7 days Allergies: anesthesia, Penicillins, and Sulfa Antibiotics. Review of Systems: Review of Systems is not available for this patient. Vital Signs: Performed on Oct 04, 2020 15:56 Height - 72.00 in Weight - 218.6 lbs (LOW) BSA - 2.21 sq.m BMI - 29.65 Temperature - 95.8 F (LOW) Pulse - 96 /min Respiration - 18 /min BP - 125/69 mm(hg) O2 Sat - 98 % Pain - 7 Fatigue - 0 Performance Status: 0 - Fully active, able to carry on all predisease activities without restrictions. (ECOG) Physical Examination: Respiratory - Lungs are clear to auscultation, Cardiovascular - Regular rate and rhythm of heart, Gastrointestinal - Soft, bowel sounds present, Extremities - No visible edema or rash. Lab/Imaging: Test performed on Apr 13, 2020 08:25 Sodium 139 mmol/L Potassium 3.7 mmol/L Chloride 100 mmol/L CO2 28 mmol/L Anion Gap 14.7 BUN 12 mg/dL Creatinine 1.1 mg/dL Cr Clearance (Est) 82.02 mL/min eGFR 50.8 mL/min Glucose 204 mg/dL Osmolality - Calculated 294 mOsm/kg Calcium 9.4 mg/dL Protein, Total 7.0 g/dL Albumin 4.0 g/dL Globulin 3.0 g/dL Bilirubin, Total 0.2 mg/dL ALT (SGPT) 53 U/L AST (SGOT) 29 U/L Alkaline Phosphatase 120 IU/L WBC 6.4 10 3/uL RBC 3.83 10 6/uL HGB 12.0 g/dL HCT 37.1 % MCV 96.9 fL MCH 31.3 pg MCHC 32.3 g/dL RDW 12.1 % Platelet Count 223 10 3/cmm MPV 9.0 fL Neutrophils 3.56 10 3/uL Lymphocytes 1.9 10 3/uL Monocytes 0.7 10 3/uL Eosinophils 0.1 10 3/uL Basophils 0.1 10 3/uL Neutrophil % 56.0 % Lymphocyte % 30.2 % Monocyte % 10.2 % Eosinophil % 2.2 % Basophils % 0.9 % NRBC % 0 % Impression: Invasive moderately differentiated lobular carcinoma of the left breast diagnosed on February 03, 2019 per ultrasound-guided biopsy of left breast initial molecular profiling showed ER 93% W[place] 85% HER-2/colette negative. Underwent left upper areola skin biopsy on March 13, 2019 which confirmed invasive moderately differentiated lobular carcinoma involving the dermis of the skin. T4c lesion CT PET scan done on March 19, 2019 showed hypermetabolic soft tissue within the subareolar and inferior aspect of left breast. No hypermetabolic thoracic adenopathy or distant mets seen. Status post neoadjuvant chemotherapy with dose dense Adriamycin/Cytoxan followed by dose dense Taxol, started on March 19, 2019 and completed on July 06, 2019. Subsequently underwent bilateral mastectomy on July 28, 2019 which showed persistent invasive moderately differentiated lobular carcinoma measuring at least 3 x 2 cm with persistent direct involvement of dermis of skin without overlying skin ulceration. At least 3 additional nodules of invasive moderately differentiated lobular carcinoma found in random sections of surrounding breast parenchyma measuring 7 mm, 8 mm, 8 mm. With clear margins but invasive carcinoma located 7 mm from the inferior skin margin. Left axillary sentinel lymph node biopsy confirmed 1 out of 2 positive lymph nodes metastasis measuring 5 mm in greatest dimension showed extracapsular invasion. Right breast mastectomy shows no evidence of malignancy fibrocystic changes. Started on Femara 2.5 mg daily for 5 years on August 17, 2019. Incidental finding of thyroid nodules underwent ultrasound-guided aspiration of thyroid on April 16, 2025 suggestive of benign lesion. Incidental finding of saccular aneurysm involving ascending thoracic aorta, seen by cardiothoracic surgery on April 16, 2019 in [facility]. Acquired hypothyroidism Peripheral neuropathy due to chemotherapy Depression. MRI scan of the breast done on February 19, 2020 showed no evidence of suspicious lesion seen in bilateral breast/chest, patient status post bilateral mastectomy DEXA scan done on January 15, 2020 shows osteopenia of the lumbar spine and both hips. Plan: Discussed with patient regarding her labs white blood count 6.7 hemoglobin 13.4 hematocrit 41.1 platelets 275,000 CMP within normal limits except creatinine 1.3 and alk phos 123, ALT 52 AST 39 Clinically, patient is doing well with no new signs symptoms, her lab work-up shows fluctuating but mildly elevated transaminases, etiology unclear could be due to fatty liver, mild renal insufficiency, patient was advised to maintain good hydration and continue with daily Femara along with vitamin D and calcium supplement, she will return to clinic in 4 months with CBC CMP, if there is a worsening of LFTs, will consider further work-up Signed By: Jennifer Giles M.D. <<Signature on File>>
== END 2020-10-04 13:57 | disposition home or self-care (01) ==
PROVIDERS: PCP Nurse Practitioner Family; Visit Provider Internal Medicine Hematology & Oncology
DX: C50.812 Malignant neoplasm of overlapping sites of left female breast (principal); Z17.0 Estrogen receptor positive status [ER+]; Z90.12 Acquired absence of left breast and nipple; Z90.11 Acquired absence of right breast and nipple; Z79.811 Long term (current) use of aromatase inhibitors; I71.4 Abdominal aortic aneurysm, without rupture; E03.9 Hypothyroidism, unspecified; G62.0 Drug-induced polyneuropathy; T45.1X5A Adverse effect of antineoplastic and immunosuppressive drugs, initial encounter; F32.9 Major depressive disorder, single episode, unspecified; M85.80 Other specified disorders of bone density and structure, unspecified site; Z79.899 Other long term (current) drug therapy; Z92.3 Personal history of irradiation; Z92.21 Personal history of antineoplastic chemotherapy
CPT/HCPCS: 36415; 80053; 85025; 99214

== ENCOUNTER 2020-10-26 13:48 | Outpatient (CLI) | payer MEDICAID, SELFPAY ==
--- NOTE | 2020-10-26 14:10 | CT_ITS ---
WS: [id number] Exam: CT angio chest [id number] Date/Time of Exam: 10/26/2020 2:10 PM Reason For Exam: I71.2 - Thoracic aortic aneurysm, without rupture DLP: 1550.[address] scans at [facility] use at least one of these dose optimization techniques: automat ed exposure control; mA and/or kV adjustment per patient size (includes targeted exams where dose is matched to clinical indication); or iterative reconstruction. Compared to prior outside study performed 10/15/2019. There was no sign of acute PE. A stable appearing 2.5 cm x 3 cm aneurysm is noted along the left lucrecia in of the ascending aorta. No obvious aortic dissection. The airway is patent. Single mildly enlarged lymph node in the AP window measuring 1.39 cm at greatest short axis dimension unchanged. The lungs are fully expanded. Emphysematous changes noted with several scattered pulmonary blebs. No pleural or pericardial effusion. Goitrous enlargement of the thyroid lobe with several tiny thyroid nodules. No obvious destructive bone lesions are seen. Degenerative changes in the dorsal spine. No chest wall d efects. Several small liver cysts noted. No change. CT/CT angio chest [id number] IMPRESSION: 1. No sign of acute PE. 2. Stable appearing 2.5 x 3 cm saccular aneurysm along the left margin of the a scending aorta. No dissection is noted. 3. Mildly enlarged lymph node in the AP window measuring about 1.[address] short axis dimension. This is stable in appearance since a previous imaging study. 4. Goitrous enlargement of the thyroid gland with several tiny low attenuation nodules unchanged.
[2020-10-26] MEDS: iodixanol 320 mg/mL 100mL Btl IV (14:36)
== END 2020-10-26 13:49 | disposition home or self-care (01) ==
PROVIDERS: PCP Nurse Practitioner Family; Visit Provider Thoracic Surgery (Cardiothoracic Vascular Surgery)
DX: I71.2 Thoracic aortic aneurysm, without rupture (principal); E04.9 Nontoxic goiter, unspecified
CPT/HCPCS: 71275; Q9967

== ENCOUNTER 2020-10-26 16:20 | Outpatient (CLI) | payer MEDICAID, SELFPAY ==
--- NOTE | 2020-10-26 16:27 | MR_ITS ---
WS: [id number] MRI RIGHT KNEE NONCONTRAST TECHNIQUE: Axial PD, coronal PD fat sat, coronal PD, sagittal PD, and sagittal PD fat-sat images obta ined. CLINICAL INFORMATION: STRAIN OF UNSPECIFIED MUSCLE COMPARISON: None. FINDINGS: Small moderate suprapatellar effusion. Distal quadriceps and patella tendons are intact. Hypertrophic patella. Advanced chondromalacia patella with small amount of subchondral edema worse involving the medial patella facet. Normal ACL and PCL. Normal lateral meniscus. Complex tear involving the posteri or horn medial meniscus with a extension to the articular surface. Moderate chondromalacia medial and lateral joint compartments with joint space narrowing. Small amoun t of subchondral edema involving the medial tibial plateau. Medial and lateral collateral ligaments a re intact. Normal popliteal fossa. MR/MR knee RT wo con* [id number] IMPRESSION: 1. Moderate suprapatellar effusion. 2. Grade IV chondromalacia patella with a small amount of subchondral edema wo rse involving the medial patella facet. 3. Normal ACL and PCL. 4. Complex tear involving the posterior horn medial meniscus extending to the articular surface with horizontal and radial components. 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 Normal lateral meniscus. 5. Moderate chondromalacia involving the medial and lateral joint compartments with joint space narrowing 6. Small amount of subchondral edema involving the medial tibial plateau. 7. Normal medial and lateral collateral ligaments. Outbridge grading: grade IV: full-thickness cartilage loss with underlying bone reactive changes
== END 2020-10-26 16:21 | disposition home or self-care (01) ==
LOC: RADSHAW 16:26
PROVIDERS: PCP Nurse Practitioner Family; Visit Provider Orthopaedic Surgery
DX: S86.911A Strain of unspecified muscle(s) and tendon(s) at lower leg level, right leg, initial encounter (principal); M25.461 Effusion, right knee; M22.41 Chondromalacia patellae, right knee; R60.0 Localized edema; S83.231A Complex tear of medial meniscus, current injury, right knee, initial encounter; X58.XXXA Exposure to other specified factors, initial encounter
CPT/HCPCS: 73721

== ENCOUNTER → 2020-11-28 15:32 | Outpatient (BNVA) | payer MEDICAID, SELFPAY | PROVIDERS: PCP Nurse Practitioner Family; Visit Provider Internal Medicine Hematology & Oncology | DX: C50.812 Malignant neoplasm of overlapping sites of left female breast (principal); Z78.0 Asymptomatic menopausal state | CPT/HCPCS: 80053; 85025 ==

== ENCOUNTER 2020-11-29 12:08 | Outpatient (CLI) | payer MEDICAID, SELFPAY ==
--- NOTE | 2020-11-29 17:37 | ONC FU_ITS ---
Dr. Giles follow up note Patient: Natividad Guillermo Unit #: [id number]: [id number] Dicatated By: Jennifer Giles M.D.Date of Visit:Nov 29, 2020 Onc Med Follow-up/Prog Note History of Present Illness: Ms. Natividad Guillermo, is a 59-year-old female with history of stage IIIb invasive lobular carcinoma of left breast with skin involvement diagnosed on February 03, 2019 per ultrasound-guided left breast biopsy which confirmed ER ME positive HER-2/colette negative disease with skin involvement confirmed by left upper areola skin biopsy done on March 13, 2019. Patient underwent CT PET scan done on March 19, 2019 suggestive of hypermetabolic soft tissue within the subareolar and inferior aspect of left breast. No hypermetabolic thoracic adenopathy or distant metastatic disease seen. 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 Patient underwent thyroid sonogram on April 08, 2019 which confirmed multinodular goiter subsequently on April 16, 2019 underwent ultrasound-guided aspiration of thyroid nodule suggestive of benign lesion.Patient also underwent MRI scan of the brain on March 13, 2019 which was suggestive of 2 adjacent small enhancing foci of abnormal signal at the left anterior superior frontal cortex and subcortical white matter. Metastatic disease cannot be excluded. Follow-up MRI scan was suggested, on June 08, 2019 patient underwent repeat MRI scan of brain and it was reported negative. Patient underwent neoadjuvant chemotherapy in dose dense fashion with Adriamycin Cytoxan x4 followed by dose dense Taxol by weekly x4 Starting on March 19, 2019 and completed on July 06, 2019 subsequently underwent bilateral mastectomy on July 28, 2019 which showed persistent invasive moderately differentiated lobular carcinoma measuring at least 3 x 2 cm with a persistent direct involvement of dermis of skin without overlying skin ulceration. At least 3 additional nodules of invasive moderately differentiated lobular carcinoma found on random sections of surrounding breast parenchyma measuring 7 mm, 8 mm and 8 mm.And right breast mastectomy showed fibrocystic changes with fibrosis, microcyst formation no evidence of malignancy. Margins free of carcinoma with invasive carcinoma located 7 mm from the inferior skin margin and 1 cm or greater from the other margins. Lymph nodes, left axillary, sentinel lymph node biopsy showed metastatic lobular carcinoma in 1 of 2 lymph nodes, measures 5 mm in the greatest dimension and and also extracapsular invasion identified. Started on Femara 2.5 mg on August 17, 2019, patient was offered postmastectomy radiation therapy to left breast and axilla, as per patient because of transportation issue and due to coronavirus the wound at her hospital stay with her, she did not pursue radiation therapy there. As far as ascending thoracic aorta aneurysm is concerned patient underwent CT scan of chest on April 12, 2019 which shows no evidence of pulmonary embolism but saccular aneurysm involving the ascending thoracic aorta. Patient was referred to cardiothoracic surgeon whom she saw on April 16, 2019 as per patient she was advised to finish her recommended treatment for breast cancer then will be evaluated again. MRI scan of the breast done on February 19, 2020 shows no suspicious activity in the bilateral breast, patient is status post bilateral mastectomy DEXA scan done on January 15, 2020 showed osteopenia of lumbar spine and both hips tolerating Femara along with vitamin D and calcium supplement Patient was referred to radiation oncology for post surgical radiation, patient saw Dr. Pierson and somehow decided not to pursue radiation therapy AGAINST MEDICAL ADVICE Ultrasound soft tissue left posterior neck done on September 22, 2020 showed palpable nodule has appearance of very small benign appearing lymph node Came for follow-up, complaining of palpable lymph node in the left upper neck, but denies any sore throat denies any fever chills denies any nausea or vomiting denies any diarrhea or constipation denies any postnasal discharge, denies any skin infection or bite, patient is concerned about her breast cancer recurrence. No new bony pains, no axillary fullness, no chest wall pain or discomfort, no headaches or blurred vision or double vision, tolerating Femara/vitamin D/calcium well otherwise Medications: Calcium 1 Tablet (of 600 mg) Oral daily, Cetirizine HCl 1 Tablet (of 10 mg) Oral daily, Dicyclomine HCl 1 [place] 125 Units/mL (of 10 mg) Capsule Oral PRN, DULoxetine HCl 1 Capsule (of 30 mg) Capsule Delayed Release Particles Oral daily, Ferrous Sulfate (325 (65 fe) mg) Tablet Oral Take as Directed, Flonase 1 [place](s) (of 50 mcg/act) Suspension Nasal PRN, Gabapentin 2 Capsule (of 100 mg) Oral b.i.d., HM Zinc 1 Tablet (of 50 mg) Oral daily, HYDROcodone-Acetaminophen 1 Tablet (of 10-325 mg) Oral b.i.d., Letrozole 1 Tablet (of 2.5 mg) Oral daily, Montelukast Sodium 1 Tablet (of 10 mg) Oral daily, Omeprazole 1 [place] 125 Units/mL (of 40 mg) Capsule Delayed Release Oral daily, Oxybutynin Chloride 1 Tablet (of 10 mg) Oral daily, Probiotic 1 Capsule Oral daily, Selenium 1 Tablet (of 100 mcg) Oral daily, Vitamin B Complex 1 Tablet Oral daily, Vitamin D3 1 Tablet (of 5000 Units) Oral q 7 days Allergies: anesthesia, Penicillins, and Sulfa Antibiotics. Review of Systems: Review of Systems is not available for this patient. Vital Signs: Performed on Nov 29, 2020 16:54 Height - 72.00 in Weight - 213.6 lbs (LOW) BSA - 2.19 sq.m BMI - 28.97 Temperature - 97.4 F (LOW) Pulse - 109 /min (HIGH) Respiration - 18 /min BP - 127/70 mm(hg) O2 Sat - 98 % Pain - 3 Fatigue - 4 Performance Status: 0 - Fully active, able to carry on all predisease activities without restrictions. (ECOG) Physical Examination: Respiratory - Lungs are clear to auscultation, Cardiovascular - Regular rate and rhythm of heart, Gastrointestinal - Soft, bowel sounds present, Extremities - .No visible edema or rash, about 1 cm sized lymph node palpable in the left upper neck, nontender, no overlying skin changes. Lab/Imaging: Most recent lab results are not available for this patient. Impression: Invasive moderately differentiated lobular carcinoma of the left breast diagnosed on February 03, 2019 per ultrasound-guided biopsy of left breast initial molecular profiling showed ER 93% ME 85% HER-2/colette negative. Underwent left upper areola skin biopsy on March 13, 2019 which confirmed invasive moderately differentiated lobular carcinoma involving the dermis of the skin. T4c lesion CT PET scan done on March 19, 2019 showed hypermetabolic soft tissue within the subareolar and inferior aspect of left breast. No hypermetabolic thoracic adenopathy or distant mets seen. Status post neoadjuvant chemotherapy with dose dense Adriamycin/Cytoxan followed by dose dense Taxol, started on March 19, 2019 and completed on July 06, 2019. Subsequently underwent bilateral mastectomy on July 28, 2019 which showed persistent invasive moderately differentiated lobular carcinoma measuring at least 3 x 2 cm with persistent direct involvement of dermis of skin without overlying skin ulceration. At least 3 additional nodules of invasive moderately differentiated lobular carcinoma found in random sections of surrounding breast parenchyma measuring 7 mm, 8 mm, 8 mm. With clear margins but invasive carcinoma located 7 mm from the inferior skin margin. Left axillary sentinel lymph node biopsy confirmed 1 out of 2 positive lymph nodes metastasis measuring 5 mm in greatest dimension showed extracapsular invasion. Right breast mastectomy shows no evidence of malignancy fibrocystic changes. Started on Femara 2.5 mg daily for 5 years on August 17, 2019. Incidental finding of thyroid nodules underwent ultrasound-guided aspiration of thyroid on April 16, 2025 suggestive of benign lesion. Incidental finding of saccular aneurysm involving ascending thoracic aorta, seen by cardiothoracic surgery on April 16, 2019 in [facility]. Acquired hypothyroidism Peripheral neuropathy due to chemotherapy Depression. MRI scan of the breast done on February 19, 2020 showed no evidence of suspicious lesion seen in bilateral breast/chest, patient status post bilateral mastectomy DEXA scan done on January 15, 2020 shows osteopenia of the lumbar spine and both hips. Plan: Discussed with patient regarding her labs white blood counts 6.4 hemoglobin 13.6 hematocrit 40.7 platelets 231,000 CMP Pending Clinically, patient is doing well with no new signs symptoms just of recurrence of disease but patient is concerned about persistent and progressive left upper neck lymphadenopathy, on exam there is no tenderness no overlying skin changes but about 1 cm size palpable lymph node in the left upper neck. Etiology unclear could be reactive but unlikely metastatic but patient is very anxious, at this point will consider CT scan of neck and if it shows persistent lymphadenopathy, may consider biopsy or FNA. Patient also has history of elevated transaminases, etiology remains unclear so we will consider right upper quadrant sonogram Patient return to clinic after CT scan of neck and right upper quadrant sonogram done, will review and make further recommendations in the meantime she will continue with daily Femara and along with vitamin D and calcium supplement Signed By: Jennifer Giles M.D. <<Signature on File>>
== END 2020-11-29 12:09 | disposition home or self-care (01) ==
PROVIDERS: PCP Nurse Practitioner Family; Visit Provider Internal Medicine Hematology & Oncology
DX: C50.112 Malignant neoplasm of central portion of left female breast (principal); Z17.1 Estrogen receptor negative status [ER-]; C77.3 Secondary and unspecified malignant neoplasm of axilla and upper limb lymph nodes; Z79.899 Other long term (current) drug therapy
CPT/HCPCS: 99214

== ENCOUNTER 2020-12-07 09:31 | Outpatient (CLI) | payer MEDICAID, SELFPAY ==
--- NOTE | 2020-12-07 09:30 | US_ITS ---
WS: [id number] ULTRASOUND THYROID TECHNIQUE: Ultrasound of the thyroid. CLINICAL INFORMATION: a repeat ultrasound COMPARISON: Ultrasound 09/22/2020 and 06/30/2020 April 08, 2019 FINDINGS: Thyroid: Enlarged thyroid with diffuse heterogeneous thyroid echotexture compatible with multinodular goiter. A few small calcifications. No dominant nodules to target for biopsy. Right thyroid lobe: 6.3 cm x 3.3 cm x 2.6 cm Left thyroid lobe: 6.3 cm x 2.6 cm x 3.0 cm. Isthmus: 0.8 mm. Cervical lymphadenopathy: Normal-appearing bilateral cervical lymph nodes. IMPRESSION: 1. Diffuse enlarged thyroid gland with heterogeneous echotexture compatible with thyroid goiter. Rec ommend correlation with thyroid function studies. 2. No dominant nodules to target for biopsy.
== END 2020-12-07 09:32 | disposition home or self-care (01) ==
LOC: US 09:33
PROVIDERS: PCP Nurse Practitioner Family; Visit Provider Internal Medicine
DX: R59.0 Localized enlarged lymph nodes (principal); E04.9 Nontoxic goiter, unspecified
CPT/HCPCS: 76536

== ENCOUNTER 2020-12-12 06:53 | Outpatient (CLI) | payer MEDICAID, SELFPAY ==
--- NOTE | 2020-12-12 08:16 | CT_ITS ---
WS: [id number] CT NECK WITH CONTRAST HISTORY: CERVICAL LYMPHADENOPATHY TECHNIQUE: Contiguous 5 mm axial images are performed through the neck with intravenous contrast. Sag ittal and coronal reformats are also submitted. All CT scans at [facility] use at least one o f these dose optimization techniques: automated exposure control; mA and/or kV adjustment per patient size (includes targeted exams where dose is matched to clinical indication); or iterative reconstruc tion. CONTRAST: CONTRAST: Visipaque 320; 95 mL IV. DLP: 476.95 mGy.cm COMPARISON: 01/07/2014 Nasopharynx, oropharynx, hypopharynx and larynx are unremarkable. No soft tissue masses or abnormal e nhancement. Torus tubarius and fossa of Rosenmuller and parapharyngeal fat are normal. No significant lymphadenopathy is identified. Enlarged bilateral thyroid. Multinodular goiter extends substernal. Coarse calcification measuring 7 mm in the posterior mid LEFT thyroid lobe. No osseous abnormalities. 13 mm incompletely visualized low-attenuation nodule in the inferior LEFT basal ganglia has been prev iously described consistent with a perivascular space. Orbits and globes are negative. Mild atheroscl erotic plaque within the visualized intracranial carotid arteries. Visualized paranasal sinuses and mastoid air cells are normal. Lung apices are clear. There is a saccular aneurysm measuring 2.7 cm incompletely visualized from the aortic arch. This has been previously described with no increase in size on this limited evaluation. CT/CT neck w con* [id number] IMPRESSION: 1. No cervical chain lymphadenopathy. 2. Thyroid goiter. Very similar to the prior study from 2013. 3. Known but partially visualized saccular aneurysm at the aortic arch has not increased in size.
--- NOTE | 2020-12-12 08:16 | US_ITS ---
WS: [id number] RIGHT UPPER QUADRANT ULTRASOUND HISTORY: ELEVATED LIVER ENZYMES COMPARISON: 02/05/2010 Liver: 19.3 cm in length. Moderately enlarged liver with severe coarsened echotexture. Loss of the no rmal visualization of the hepatic structures. 1.5 x 1.7 x 1.5 cm cyst in the central liver. Gallbladder: Status post cholecystectomy. CBD: 0.8 cm Pancreas: Poorly visualized. Right kidney: 10.3 cm in length. Normal size and echogenicity. No hydronephrosis or mass. Aorta and IVC: Unremarkable abdominal aorta and IVC. No ascites. US/US abdomen limited [id number] IMPRESSION: 1. Prior cholecystectomy. 2. Moderately enlarged liver with severe hepatic steatosis and a cyst. 3. No bile duct dilatation.
== END 2020-12-12 06:54 | disposition home or self-care (01) ==
LOC: US 06:56
PROVIDERS: PCP Nurse Practitioner Family; Visit Provider Internal Medicine Hematology & Oncology
DX: R59.0 Localized enlarged lymph nodes (principal); R74.8 Abnormal levels of other serum enzymes; E04.9 Nontoxic goiter, unspecified; Z90.49 Acquired absence of other specified parts of digestive tract; R16.0 Hepatomegaly, not elsewhere classified; K76.0 Fatty (change of) liver, not elsewhere classified; K76.89 Other specified diseases of liver
CPT/HCPCS: 70491; 76705; Q9967

== ENCOUNTER 2020-12-15 10:44 | Outpatient (CLI) | payer MEDICAID, SELFPAY ==
--- NOTE | 2020-12-15 14:37 | ONC FU_ITS ---
Dr. Giles follow up note Patient: Natividad Guillermo Unit #: [id number]: 1960 Dicatated By: Jennifer Giles M.D.Date of Visit:Dec 15, 2020 Onc Med Follow-up/Prog Note History of Present Illness: Ms. Natividad Guillermo, is a 59-year-old female with history of stage IIIb invasive lobular carcinoma of left breast with skin involvement diagnosed on February 03, 2019 per ultrasound-guided left breast biopsy which confirmed ER PA positive HER-2/colette negative disease with skin involvement confirmed by left upper areola skin biopsy done on March 13, [address]. [address] PET scan done on March 19, 2019 suggestive of hypermetabolic soft tissue within the subareolar and inferior aspect of left breast. No hypermetabolic thoracic adenopathy or distant metastatic disease seen. 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 Patient underwent thyroid sonogram on April 08, 2019 which confirmed multinodular goiter subsequently on April 16, 2019 underwent ultrasound-guided aspiration of thyroid nodule suggestive of benign lesion.Patient also underwent MRI scan of the brain on March 13, 2019 which was suggestive of 2 adjacent small enhancing foci of abnormal signal at the left anterior superior frontal cortex and subcortical white matter. Metastatic disease cannot be excluded. Follow-up MRI scan was suggested, on June 08, 2019 patient underwent repeat MRI scan of brain and it was reported negative. Patient underwent neoadjuvant chemotherapy in dose dense fashion with Adriamycin Cytoxan x4 followed by dose dense Taxol by weekly x4 Starting on March 19, 2019 and completed on July 06, 2019 subsequently underwent bilateral mastectomy on July 28, 2019 which showed persistent invasive moderately differentiated lobular carcinoma measuring at least 3 x 2 cm with a persistent direct involvement of dermis of skin without overlying skin ulceration. At least 3 additional nodules of invasive moderately differentiated lobular carcinoma found on random sections of surrounding breast parenchyma measuring 7 mm, 8 mm and 8 mm.And right breast mastectomy showed fibrocystic changes with fibrosis, microcyst formation no evidence of malignancy. Margins free of carcinoma with invasive carcinoma located 7 mm from the inferior skin margin and 1 cm or greater from the other margins. Lymph nodes, left axillary, sentinel lymph node biopsy showed metastatic lobular carcinoma in 1 of 2 lymph nodes, measures 5 mm in the greatest dimension and and also extracapsular invasion identified. Started on Femara 2.5 mg on August 17, 2019, patient was offered postmastectomy radiation therapy to left breast and axilla, as per patient because of transportation issue and due to coronavirus the wound at her hospital stay with her, she did not pursue radiation therapy there. As far as ascending thoracic aorta aneurysm is concerned patient underwent CT scan of chest on April 12, 2019 which shows no evidence of pulmonary embolism but saccular aneurysm involving the ascending thoracic aorta. Patient was referred to cardiothoracic surgeon whom she saw on April 16, 2019 as per patient she was advised to finish her recommended treatment for breast cancer then will be evaluated again. MRI scan of the breast done on February 19, 2020 shows no suspicious activity in the bilateral breast, patient is status post bilateral mastectomy DEXA scan done on January 15, 2020 showed osteopenia of lumbar spine and both hips tolerating Femara along with vitamin D and calcium supplement Patient was referred to radiation oncology for post surgical radiation, patient saw Dr. Pierson and somehow decided not to pursue radiation therapy AGAINST MEDICAL ADVICE Ultrasound soft tissue left posterior neck done on September 22, 2020 showed palpable nodule has appearance of very small benign appearing lymph node Follow-up CT scan of neck done on December 12, 2020 for left neck nodule showed no evidence of cervical chain lymphadenopathy. Thyroid goiter, very similar to prior study from 2014 Ultrasound liver done on December 12, 2020 for elevated transaminases shows moderately enlarged liver with severe hepatic steatosis and a cyst size 1.5 x 1.7 x 1.5 cm in the central liver. Prior cholecystectomy. Came for follow-up, denies any specific complaints, no fever chills, no nausea or vomiting, no diarrhea constipation, as per patient left neck nodule she felt has improved with improvement in her sinus symptoms. But no fever chills, no nausea or vomiting, no diarrhea or constipation, occasionally hot flashes otherwise tolerating Femara well Medications: Calcium 1 Tablet (of 600 mg) Oral daily, Cetirizine HCl 1 Tablet (of 10 mg) Oral daily, Dicyclomine HCl 1 CA 125 Units/mL (of 10 mg) Capsule Oral PRN, DULoxetine HCl 1 Capsule (of 30 mg) Capsule Delayed Release Particles Oral daily, Ferrous Sulfate (325 (65 fe) mg) Tablet Oral Take as Directed, Flonase 1 Avalon(s) (of 50 mcg/act) Suspension Nasal PRN, Gabapentin 2 Capsule (of 100 mg) Oral b.i.d., HM Zinc 1 Tablet (of 50 mg) Oral daily, HYDROcodone-Acetaminophen 1 Tablet (of 10-325 mg) Oral b.i.d., Letrozole 1 Tablet (of 2.5 mg) Oral daily, Montelukast Sodium 1 Tablet (of 10 mg) Oral daily, Omeprazole 1 CA 125 Units/mL (of 40 mg) Capsule Delayed Release Oral daily, Oxybutynin Chloride 1 Tablet (of 10 mg) Oral daily, Probiotic 1 Capsule Oral daily, Selenium 1 Tablet (of 100 mcg) Oral daily, Vitamin B Complex 1 Tablet Oral daily, Vitamin D3 1 Tablet (of 5000 Units) Oral q 7 days Allergies: anesthesia, Penicillins, and Sulfa Antibiotics. Review of Systems: Review of Systems is not available for this patient. Vital Signs: Performed on Dec 15, 2020 12:02 Height - 72.00 in Weight - 212 lbs (LOW) BSA - 2.18 sq.m BMI - 28.75 Temperature - 97.3 F (LOW) Pulse - 80 /min Respiration - 18 /min BP - 143/78 mm(hg) (HIGH) O2 Sat - 98 % Pain - 4 Fatigue - 0 Performance Status: 1 - No physically strenuous activity, but ambulatory and able to carry out light or sedentary work (e.g. office work, light house work). (ECOG) Physical Examination: Respiratory - Lungs are clear to auscultation, Cardiovascular - Regular rate and rhythm of heart, Gastrointestinal - Soft, bowel sounds present, Extremities - No visible edema. Lab/Imaging: Most recent lab results are not available for this patient. Impression: Invasive moderately differentiated lobular carcinoma of the left breast diagnosed on February 03, 2019 per ultrasound-guided biopsy of left breast initial molecular profiling showed ER 93% PA 85% HER-2/colette negative. Underwent left upper areola skin biopsy on March 13, 2019 which confirmed invasive moderately differentiated lobular carcinoma involving the dermis of the skin. T4c lesion CT PET scan done on March 19, 2019 showed hypermetabolic soft tissue within the subareolar and inferior aspect of left breast. No hypermetabolic thoracic adenopathy or distant mets seen. Status post neoadjuvant chemotherapy with dose dense Adriamycin/Cytoxan followed by dose dense Taxol, started on March 19, 2019 and completed on July 06, 2019. Subsequently underwent bilateral mastectomy on July 28, 2019 which showed persistent invasive moderately differentiated lobular carcinoma measuring at least 3 x 2 cm with persistent direct involvement of dermis of skin without overlying skin ulceration. At least 3 additional nodules of invasive moderately differentiated lobular carcinoma found in random sections of surrounding breast parenchyma measuring 7 mm, 8 mm, 8 mm. With clear margins but invasive carcinoma located 7 mm from the inferior skin margin. Left axillary sentinel lymph node biopsy confirmed 1 out of 2 positive lymph nodes metastasis measuring 5 mm in greatest dimension showed extracapsular invasion. Right breast mastectomy shows no evidence of malignancy fibrocystic changes. Started on Femara 2.5 mg daily for 5 years on August 17, 2019. Incidental finding of thyroid nodules underwent ultrasound-guided aspiration of thyroid on April 16, 2025 suggestive of benign lesion. Incidental finding of saccular aneurysm involving ascending thoracic aorta, seen by cardiothoracic surgery on April 16, 2019 in [facility]. Acquired hypothyroidism Peripheral neuropathy due to chemotherapy Depression. MRI scan of the breast done on February 19, 2020 showed no evidence of suspicious lesion seen in bilateral breast/chest, patient status post bilateral mastectomy DEXA scan done on January 15, 2020 shows osteopenia of the lumbar spine and both hips. Plan: Discussed with patient regarding her CT scan of neck as well as right upper quadrant sonogram shows no evidence of metastatic disease Clinically, patient doing well with no new signs symptoms history of recurrence of disease patient was concerned about her left neck nodule but CT scan neck shows no evidence of cervical lymphadenopathy or any other mass, stable goiter and stable visualized saccular aneurysm at the aortic arch. And moreover patient said her left neck nodule has resolved with improvement in her sinus symptoms, her right upper quadrant sonogram which was done for elevated transaminases shows severe hepatic steatosis and mild liver enlargement and a central liver cyst but no evidence of metastatic disease so her abnormal transaminases could be due to fatty liver. Patient is trying to lose weight. In that case we will continue with same, Femara and vitamin D and calcium supplement and then she will return to clinic in 6 months with CBC CMP Signed By: Jennifer Giles M.D. <<Signature on File>>
== END 2020-12-15 10:45 | disposition home or self-care (01) ==
LOC: ONCMED 10:46
PROVIDERS: PCP Nurse Practitioner Family; Visit Provider Internal Medicine Hematology & Oncology
DX: C50.012 Malignant neoplasm of nipple and areola, left female breast (principal); Z17.0 Estrogen receptor positive status [ER+]; E03.9 Hypothyroidism, unspecified; G62.0 Drug-induced polyneuropathy; T45.1X5S Adverse effect of antineoplastic and immunosuppressive drugs, sequela; M85.89 Other specified disorders of bone density and structure, multiple sites; Z79.811 Long term (current) use of aromatase inhibitors; Z79.899 Other long term (current) drug therapy
CPT/HCPCS: 99214

== ENCOUNTER 2021-01-23 16:42 | Emergency (ER) | payer MEDICAID, SELFPAY ==
[2021-01-23 16:57] VITALS: BP 160/80; PULSE 87; RESP 20; TEMP 36.9; O2SAT 99; BMI 28.5
--- NOTE | 2021-01-23 17:17 | CTR_ITS ---
PROCEDURE INFORMATION: Exam: CT Head Without Contrast Exam date and time: 01/23/2021 5:17 PM Age: 60 years old Clinical indication: Altered mental status/memory loss; Additional info: AMS TECHNIQUE: Imaging protocol: Computed tomography of the head without contrast. Radiation optimization: All CT scans at this facility use at least one of these dose optimization techniques: automated exposure control; mA and/or kV adjustment per patient size (includes targeted exams where dose is matched to clinical indication); or iterative reconstruction. COMPARISON: MRI Head w/wo* [id number] 06/08/2019 8:43 AM RADIATION DOSE METRICS: Total DLP (mGy-cm): 955.94 FINDINGS: Brain: Mild white matter chronic microvascular changes are again noted. No hemorrhage or evidence of acute infarction is seen. Cerebral ventricles: No ventriculomegaly. Paranasal sinuses: Visualized sinuses are unremarkable. No fluid levels. Mastoid air cells: Visualized mastoid air cells are well aerated. Bones/joints: Unremarkable. No acute fracture. Soft tissues: Unremarkable. CT/CT head wo con* [id number] IMPRESSION: No acute intracranial abnormality. Radiation Dose CTDIVOL = (mGy): DLP = 955.94 (mGy-cm)
--- NOTE | 2021-01-23 17:18 | ECG_ITS ---
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 Measurements Intervals [place] Rate: 73 P: 71 MS: 143 QRS: 56 QRSD: 90 T: 65 QT: 393 QTc: 433 Interpretive Statements SINUS RHYTHM Compared to ECG 12/14/2014 11:39:09 Sinus bradycardia no longer present Electronically Signed On 01-23-2021 23:50:14 CDT by Tess Ace M.D. [id number]
[2021-01-23 17:36] LABS: Basophils # 0.1 10^3/uL (0.0-0.1); Eosinophils # 0.1 10^3/uL (0.0-0.8); Eosinophils % 1.8 %; Lymphocytes # 1.9 10^3/uL (0.8-4.8); Mean Corpuscular HGB Conc 32.5 g/dL (30.0-36.0); Mean Corpuscular Volume 95.2 fl (81-99); Mean Platelet Volume 8.7 fL (7.4-10.4); Monocytes # 0.5 10^3/uL (0.2-0.9); Monocytes % 6.7 %; Neutrophils # 4.22 10^3/uL (1.8-7.7); Neutrophils % 61.9 %; Nucleated Red Blood Cells % 0 %; Platelet Count 229 10^3/cmm (130-400); Red Cell Distribution Width 11.9 % (12.1-15.1); White Blood Count 6.8 10^3/uL (4.0-10.0)
--- NOTE | 2021-01-23 17:39 | ED_ITS ---
HPI - Neuro Symptoms/Deficit General: Chief Complaint: Neuro Symptoms/Deficit Stated Complaint: ANXIETY Time Seen by Provider: 01/23/21 16:46 History of Present Illness: HPI Narrative: 60-year-old female comes in today with complaints of an episode of altered mental status and confusion. It was reported that the patient was talking with a friend on the phone and was acting confused the friend then told the patient to call her daughter. The patient states that she called her daughter although she does not remember exactly the conversation that was said. Her daughter had talked to her and then EMS was sent to her home and she was brought to the emergency room. EMS felt that the patient might of had some anxiety. On my evaluation the patient the patient is calm and responds appropriately. NIH scale was 0. Patient does have a history of breast cancer, chronic musculoskeletal pain, hypothyroidism, aortic aneurysm, fibromyalgia, neuropathy. Review of Systems General: Reports: 10 or more systems reviewed and unremarkable except in HPI and below Neuro: Reports: confusion PFSH ED PFSH: Medical History Chronic foot pain from chemo Chronic hand pain from chemo Depression GERD (gastroesophageal reflux disease) Hypothyroidism Neuropathy associated with cancer Bilateral hands and feet from chemo and radiation Surgical History History of cholecystectomy History of heart surgery History of hysterectomy Family History Grandfather Heart disease Grandmother Heart disease Other Cancer Social History Smoking and tobacco status: former smoker Quit status (tobacco): has quit using tobacco Year quit tobacco: 2019 Alcohol intake: never History of recent travel: No NIH stroke score NIHSS: Level Of Consciousness - 1a: 0 Level Of Consciousness Questions - 1b: Both Correct Level Of Consciousness Commands - 1c: Both Correct Best Gaze - 2: Normal Visual Valentin - 3: No Visual Loss Facial Palsy - 4: Normal Motor Arm Right - 5: No Drift Motor Arm Left - 5: No Drift Motor Leg Right - 6: No Drift Motor Leg Left - 6: No Drift Limb Ataxia - 7: Absent Sensory - 8: Normal Dysarthia - 10: Normal Extinction And Inattention - 11: 0 Physical Exam Const: COMMON NORMALS: no acute distress and patient oriented x3 GENERAL APPEARANCE: cooperative HENMT: COMMON NORMALS: normocephalic and Normal external nose present HEAD & SCALP: normal to inspection and normocephalic NOSE: Normal external nose present MOUTH: Normal oral and palatal mucosa present THROAT: posterior oropharynx normal Eye: GENERAL EYE: appearance normal, both eyes and all related structures Neck/C-Spine: COMMON NORMALS: full ROM Lymph: LYMPHATIC: no lymphadenopathy noted Chest: COMMONS NORMALS: normal inspection of the chest Resp: COMMON NORMALS: normal respiratory effort EFFORT & INSPECTION: Yes able to speak in complete sentences Cardio: COMMON NORMALS: regular rate and regular rhythm RATE: regular rate RHYTHM: regular rhythm GI: COMMON NORMALS: non-tender : COMMON NORMALS: Yes no CVA tenderness BLADDER/KIDNEY EXAM: Yes no CVA tenderness Back/Pelvis: COMMON NORMALS: no CVA tenderness and thoracic and lumbar spine normal to inspection Extremity: COMMON NORMALS: normal to inspection Neuro: COMMON NORMALS: patient oriented x3 and moves all extremities Psych: COMMON NORMALS: mental status grossly normal and cooperative Skin: COMMON NORMALS: no rashes or lesions noted GENERAL SKIN EXAM: no rashes or lesions noted Course ED course: 2009, reviewed patient's lab and imaging with Dr. Rodriguez. He agrees with concern for TIA. He recommended initiating 81 mg aspirin daily, and a cholesterol medication with neurology follow-up. Vital Signs: Vital signs: Vital Signs Temperature 98.4 F 01/23/21 16:57 Pulse Rate 88 01/23/21 20:16 Respiratory Rate 18 01/23/21 20:16 Blood Pressure 150/70 01/23/21 20:16 Pulse Oximetry 92 01/23/21 20:16 MDM - Neuro Symptoms/Deficit MDM Narrative: Medical decision making narrative: Patient came in today for a episode of confusion. It was reported that she was on the phone talking with a friend when her friend noticed that she seemed confused and told her to call her daughter. Patient called her daughter and her daughter noticed the confusion also and had called EMS for evaluation. On arrival to the ER the patient was able to recite what brought her to the ER and reported that she felt better and was returning to normal. Patient's NIH score was 0. Patient's vital signs were normal except for some mild elevation in blood pressure at 160 systolic. Respirations were even lungs were clear to auscultation. Abdomen soft nontender. Skin was warm and dry. Differential diagnosis includes but not limited to TIA, sepsis, ACS, electrolyte disturbance. Laboratory values were unremarkable. Urinalysis was normal. CT of the head and CTA were unremarkable. Chest x-ray was normal. I reviewed the exam with Dr. Rodriguez who felt patient probably had a TIA and recommended initiation of antiplatelet therapy with aspirin and statin medication for cholesterol. I reviewed this with patient who agreed to plan. We will also arrange for patient to follow-up with neurologist for further evaluation and treatment. Patient was recommended to return to the ER for worsening or return of symptoms. Patient was agreeable to this and felt comfortable to go home. Lab Data: Labs: Lab Results 01/23/21 01/23/21 01/23/21 17:22 17:22 17:22 WBC 6.8 10^3/uL 10^3/ uL (4.0-10.0) RBC 4.20 10^6/uL 10^6 /uL (4.1-5.3) Hgb 13.0 g/dL g/dL (11.5-15.3) Hct 40.0 % % (37.0-47.0) MCV 95.2 fl fl (81-99) MCH 31.0 pg pg (28.0-34.0) MCHC 32.5 g/dL g/dL (30.0-36.0) RDW 11.9 % L % (12.1-15.1) Plt Count 229 10^3/cmm 10^3 /cmm (130-400) MPV 8.7 fL fL (7.4-10.4) Neut % (Auto) 61.9 % % Lymph % (Auto) 28.0 % % [place] % (Auto) 6.7 % % Eos % (Auto) 1.8 % % Baso % (Auto) 1.0 % % Neut # (Auto) 4.22 10^3/uL 10^3 /uL (1.8-7.7) Lymph # (Auto) 1.9 10^3/uL 10^3/ uL (0.8-4.8) [place] # (Auto) 0.5 10^3/uL 10^3/ uL (0.2-0.9) Eos # (Auto) 0.1 10^3/uL 10^3/ uL (0.0-0.8) Baso # (Auto) 0.1 10^3/uL 10^3/ uL (0.0-0.1) Nucleated RBC % (a uto) 0 % % Nucleated RBCs # 0.0 /100WBC /100W BC Sodium 141 mmol/L mmol/L (136-145) Potassium 3.8 mmol/L mmol/L (3.5-5.1) Chloride 101 mmol/L mmol/L (98-107) Carbon Dioxide 30 mmol/L H mmol/ L (22-29) Anion Gap 13.8 (5-19) BUN 12 mg/dL mg/dL (8-23) Creatinine 1.1 mg/dL H mg/dL (0.5-0.9) GFR Calculation 50.7 mL/min L mL/ min (90-130) Glucose 103 mg/dL mg/dL (65-115) Calculated Osmolal ity 292 mOsm/kg mOsm/ kg (285-295) Calcium 9.7 mg/dL mg/dL (8.5-10.5) Total Bilirubin 0.3 mg/dL mg/dL (0.15-1.2) AST 31 U/L U/L (0-32) ALT 49 U/L H U/L (0-33) Alkaline Phosphata se 106 IU/L H IU/L (35-105) Troponin T Baselin e 11 ng/L H ng/L (0-10) Troponin T 120 Min janet Delta Troponin T Total Protein 6.6 g/dL g/dL (6.6-8.7) Albumin 4.2 g/dL g/dL (3.5-5.2) Globulin 2.4 g/dL g/dL (1.3-4.6) TSH 4.40 uIU/mL H uIU /mL (0.27-4.20) Urine Color Urine Appearance Urine pH Ur Specific Gravit y Urine Protein Urine Glucose (UA) Urine Ketones Urine Blood Urine Nitrate Urine Bilirubin Urine Urobilinogen Ur Leukocyte Maryse ase Urine RBC Urine WBC Ur Squamous Epith Cells Amorphous Sediment Urine Bacteria 01/23/21 01/23/21 19:26 19:29 WBC RBC Hgb Hct MCV MCH MCHC RDW Plt Count MPV Neut % (Auto) Lymph % (Auto) [place] % (Auto) Eos % (Auto) Baso % (Auto) Neut # (Auto) Lymph # (Auto) [place] # (Auto) Eos # (Auto) Baso # (Auto) Nucleated RBC % (a uto) Nucleated RBCs # Sodium Potassium Chloride Carbon Dioxide Anion Gap BUN Creatinine GFR Calculation Glucose Calculated Osmolal ity Calcium Total Bilirubin AST ALT Alkaline Phosphata se Troponin T Baselin e Troponin T 120 Min janet 11.34 ng/L H ng/L (0-10) Delta Troponin T 0.34 ABS# ABS# (0-10) Total Protein Albumin Globulin TSH Urine Color Yellow (Yellow) Urine Appearance Clear (CLEAR) Urine pH 5 (5-7) Ur Specific Gravit y 1.010 (1.005-1.030) Urine Protein Neg (Negative) Urine Glucose (UA) Norm (Normal) Urine Ketones Negative (Negative) Urine Blood Trace H (Negative) Urine Nitrate Negative (Negative) Urine Bilirubin Neg (Negative) Urine Urobilinogen Norm mg/dL mg/dL (Negative) Ur Leukocyte Maryse ase Negative (Negative) Urine RBC 0-4 /hpf H /hpf (0-2) Urine WBC 0-4 /hpf H /hpf (0-5) Ur Squamous Epith Cells 0-4 /hpf H /hpf (0-5) Amorphous Sediment Not Reportable Urine Bacteria Trace /hpf /hpf (NONE) EKG Data^: EKG 1: Attestation: I personally reviewed and interpreted this EKG as follows: (1751, EKG shows normal sinus rhythm with a regular rate at 73 bpm. No ectopy or ST elevation is noted. No prior exam is available for comparison.) EKG 2: Attestation: I personally reviewed and interpreted this EKG as follows: (1930, EKG shows a sinus rhythm with a regular rate at 73 bpm. No ectopy or ST elevation is noted. No significant changes been noted from prior exams.) Discharge Plan Discharge Patient Disposition: Home Clinical Impression: Transient cerebral ischemia Qualifiers: Transient cerebral ischemia type: unspecified Qualified Code(s): G45.9 - Transient cerebral ischemic attack, unspecified Condition: Stable Prescriptions: New aspirin 81 mg capsule 81 mg PO DAILY Qty: 30 RF: 0 atorvastatin 20 mg tablet 20 mg PO DAILY Qty: 30 RF: 0 No Action lactobacillus combination no.9 PO RF: 0 hydrocodone-acetaminophen 10-325 mg tablet 1 tab PO Q4H PRNRF: 0 selenium 50 mcg tablet 50 mcg PO DAILY RF: 0 letrozole 2.5 mg tablet 2.5 mg PO DAILY RF: 0 calcium carbonate [Calcium 600] 600 mg calcium (1,500 mg) tablet 600 mg PO DAILY RF: 0 beta carotene 25,000 unit capsule 25,000 unit PO DAILY RF: 0 vitamin B complex PO RF: 0 cholecalciferol (vitamin D3) 25 mcg (1,000 unit) capsule 25 mcg PO BID RF: 0 cholecalciferol (vitamin D3) 25 mcg (1,000 unit) capsule 25 mcg PO DAILY RF: 0 zinc 50 mg tablet 50 mg PO DAILY RF: 0 Proctofoam HC 1-1 % foam 1 applic SC QID PRN (Reason: hemorrhoids) Qty: 10 RF: 3 montelukast 10 mg tablet See Rx Instructions .ROUTE .COMPLEX Qty: 90 RF: 3 dicyclomine 10 mg capsule 10 mg PO DAILY Qty: 30 RF: 5 cetirizine 10 mg tablet See Rx Instructions .ROUTE .COMPLEX Qty: 30 RF: 6 omeprazole 40 mg capsule,delayed release(DR/EC) See Rx Instructions .ROUTE .COMPLEX Qty: 30 RF: 6 oxybutynin chloride 10 mg tablet extended release 24hr See Rx Instructions .ROUTE .COMPLEX Qty: 90 RF: 0 fluticasone propionate 50 mcg/actuation spray,suspension 2 spray INTRANASAL QDAY PRN (Reason: allergy symptoms) Qty: 16 RF: 5 gabapentin 100 mg capsule See Rx Instructions .ROUTE .COMPLEX Qty: 180 RF: 0 duloxetine 30 mg capsule,delayed release(DR/EC) See Rx Instructions .ROUTE .COMPLEX Qty: 90 RF: 4 Discharge Orders: Discharge ED (Routine); Ordered 01/23/21 Ordered By: Triston Álvarez Referrals: Romana Nelson NP [Primary Care Provider] - Discharge Diet: Usual diet Discharge Activity: Increase activity as tolerated Patient Instructions: Opioid Safety, TIA Activity Restrictions/Additional Instructions: Follow-up with primary care. Case management will contact you regarding follow- up with a neurologist. Take medications as directed. Return to the ER for new concerns or new symptoms. Coding Level of Care Code ED Covering Machine Operator Helper for Sean Fwd Exam Comprehensive
--- NOTE | 2021-01-23 17:56 | CTR_ITS ---
PROCEDURE INFORMATION: Exam: CT Angiography Head With Contrast, Arteriography Exam date and time: 01/23/2021 5:56 PM Age: 60 years old Clinical indication: Other: AMS; Additional info: Confusion, TIA TECHNIQUE: Imaging protocol: Computed tomography angiography of the head with contrast. Exam focused on the arteries. 3D rendering (Not supervised by radiologist): MIP and/or 3D reconstructed images were created by the technologist. Radiation optimization: All CT scans at this facility use at least one of these dose optimization techniques: automated exposure control; mA and/or kV adjustment per patient size (includes targeted exams where dose is matched to clinical indication); or iterative reconstruction. Contrast material: VISI 320; Contrast volume: 95 ml; Contrast route: INTRAVENOUS (IV); COMPARISON: CT head wo con* [id number] 01/23/2021 5:33 PM RADIATION DOSE METRICS: Total DLP (mGy-cm): 2456.05 FINDINGS: ANTERIOR CIRCULATION: Right internal carotid artery: Unremarkable. Intracranial segment is patent with no significant stenosis. No aneurysm. Right middle cerebral artery: Unremarkable. No occlusion or significant stenosis. No aneurysm. Right anterior cerebral artery: Unremarkable. No occlusion or significant stenosis. No aneurysm. Left internal carotid artery: Atherosclerotic plaque causes mild stenosis of the cavernous portion of the left ICA. No aneurysm. Left middle cerebral artery: Unremarkable. No occlusion or significant stenosis. No aneurysm. Left anterior cerebral artery: Unremarkable. No occlusion or significant stenosis. No aneurysm. POSTERIOR CIRCULATION: Right vertebral artery: Unremarkable. No occlusion or significant stenosis. No aneurysm. Left vertebral artery: Unremarkable. No occlusion or significant stenosis. No aneurysm. Basilar artery: Unremarkable. No occlusion or significant stenosis. No aneurysm. Right posterior cerebral artery: Unremarkable. No occlusion or significant stenosis. No aneurysm. Left posterior cerebral artery: Unremarkable. No occlusion or significant stenosis. No aneurysm. IMPRESSION: Mild stenosis of the left carotid siphon. Otherwise, the intracranial arteries are patent. PROCEDURE INFORMATION: Exam: CT Angiography Neck With Contrast Exam date and time: 01/23/2021 5:56 PM Age: 60 years old Clinical indication: Other: AMS; Additional info: Confusion, TIA TECHNIQUE: Imaging protocol: Computed tomography angiography of the neck with contrast. 3D rendering (Not supervised by radiologist): MIP and/or 3D reconstructed images were created by the technologist. Radiation optimization: All CT scans at this facility use at least one of these dose optimization techniques: automated exposure control; mA and/or kV adjustment per patient size (includes targeted exams where dose is matched to clinical indication); or iterative reconstruction. Contrast material: VISI 320; Contrast volume: 95 ml; Contrast route: INTRAVENOUS (IV); COMPARISON: CT head wo con* [id number] 01/23/2021 5:33 PM RADIATION DOSE METRICS: Total DLP (mGy-cm): 2456.05 FINDINGS: Right common carotid artery: No stenosis. No dissection or occlusion. Right internal carotid artery: No stenosis of the extracranial segment. No dissection or occlusion. Right external carotid artery: No occlusion or stenosis of the origin. Left common carotid artery: No stenosis. No dissection or occlusion. Left internal carotid artery: No stenosis of the extracranial segment. No dissection or occlusion. Left external carotid artery: No occlusion or stenosis of the origin. Right vertebral artery: No stenosis. No dissection or occlusion. Left vertebral artery: No stenosis. No dissection or occlusion. Aorta: The atherosclerotic changes are observed in the visualized aorta. Saccular aneurysm protruding from the anterolateral aspect of the proximal aortic arch is noted measuring approximately 2.4 x 2.6 cm. Thyroid: The thyroid gland is mildly enlarged and contains several hypodense lesions and a small calcification. Soft tissues: Normal. No significant soft tissue swelling. Bones/joints: Mild degenerative changes are present in the cervical spine. No acute fracture. Lungs: A tiny 2 mm nodular density with mild surrounding ground-glass changes are is present in the right lung apex. Several small scattered ground-glass opacities are also seen in the left lung apex CT/CT angio headneck* [id number] IMPRESSION: 1. Patent neck carotid and vertebral arteries. 2. Aortic arch saccular aneurysm 3. Small right apical 2 mm nodular density, which is likely inflammatory or infectious. Patchy small left upper lobe ground-glass opacities are also noted. 4. Multinodular goiter. REFERENCES: NASCET CRITERIA. The degree of internal carotid artery stenosis is based on NASCET criteria. Normal is no stenosis. Mild is less than 50% stenosis. Moderate is 50-69% stenosis. Severe is 70% to 99% stenosis. Total occlusion is no detectable patent lumen. Radiation Dose CTDIVOL = (mGy): DLP = 2456.05~2456.05 (mGy-cm)
[2021-01-23 18:06] LABS: Troponin(5th) Baseline 11 ng/L (0-10)
[2021-01-23] MEDS: iodixanol 320 mg/mL 100mL Btl IV (18:09)
[2021-01-23 18:15] LABS: Alanine Aminotransferase 49 U/L (0-33); Albumin Level 4.2 g/dL (3.5-5.2); Alkaline Phosphatase 106 IU/L (35-105); Anion Gap 13.8 (5-19); Aspartate Amino Transferase 31 U/L (0-32); Blood Urea Nitrogen 12 mg/dL (8-23); Calcium 9.7 mg/dL (8.5-10.5); Carbon Dioxide 30 mmol/L (22-29); Chloride 101 mmol/L (98-107); Globulin 2.4 g/dL (1.3-4.6); Glomerular Filtration Rate 50.7 mL/min (90-130); Glucose 103 mg/dL (65-115); Osmolality Calculated 292 mOsm/kg (285-295); Potassium 3.8 mmol/L (3.5-5.1); Sodium 141 mmol/L (136-145); Total Bilirubin 0.3 mg/dL (0.15-1.2); Total Protein 6.6 g/dL (6.6-8.7)
--- NOTE | 2021-01-23 18:45 | XRR_ITS ---
PROCEDURE INFORMATION: Exam: XR Chest Exam date and time: 01/23/2021 6:45 PM Age: 60 years old Clinical indication: Abnormal findings; Abnormal radiologic exam of lung or chest; Prior surgery; Additional info: Abnormal CT, ground glass opacities left lung [place] TECHNIQUE: Imaging protocol: XR of the chest. Views: 1 view. COMPARISON: CT angio chest [id number] 10/26/2020 2:29 PM FINDINGS: Lungs: The lungs are clear. No acute airspace process is visualized. Pleural spaces: Unremarkable. No pleural effusion. No pneumothorax. Heart/Mediastinum: Unremarkable. No cardiomegaly. Bones/joints: Unremarkable. XR/XR chest 1V portable [id number] IMPRESSION: No acute cardiopulmonary abnormality Radiation Dose CTDIVOL = (mGy): DLP = (mGy-cm)
[2021-01-23 20:10] LABS: Troponin 5 2HR 11.34 ng/L (0-10); Troponin 5 2HR Delta 0.34 ABS# (0-10)
[2021-01-23 20:16] VITALS: BP 150/70; PULSE 88; RESP 18; O2SAT 92
[2021-01-23 20:36] LABS: Add Urine Microscopic? YES; Bilirubin Urine Neg (Negative); Blood Urine Trace (Negative); Glucose Urine UA Norm (Normal); Ketones Urine Negative (Negative); Leukocyte Esterase Urine Negative (Negative); Nitrate Urine Negative (Negative); Protein Urine Neg (Negative); Urine Appearance Clear (CLEAR); Urine Color Yellow (Yellow); Urobilinogen Urine Norm (Negative); pH Urine 5 (5-7)
[2021-01-23 20:38] LABS: Add Urine Culture? No; Bacteria Urine TRACE /hpf; RBC Urine 0-4 /hpf (0-2); Squamous Epithelial Cell Urine 0-4 /hpf (0-5); WBC Urine 0-4 /hpf (0-5)
[2021-01-23 21:12] VITALS: BP 140/70; RESP 18; O2SAT 94
--- NOTE | 2021-01-24 10:01 | PC.SOCIAL ---
Sent email to Neurology clinic for referral per Dr Álvarez on TIA evaluation. They will review and call patient with appointment.
--- NOTE | 2021-02-02 16:16 | DCPLANNER ---
Patient has a follow up appointment scheduled for Saturday, January at 12:30 with Dino at the neurology clinic. Clinic will call patient with appointment information.
--- NOTE | 2021-02-16 16:29 | DCPLANNER ---
Patient had a follow up appointment scheduled for 02.13.[address] Rodriguez - patient did attend appointment.
== END 2021-01-23 21:15 | disposition home or self-care (01) ==
PROVIDERS: Emergency Provider Nurse Practitioner Family; PCP Nurse Practitioner Family
DX: G45.9 Transient cerebral ischemic attack, unspecified (principal); E03.9 Hypothyroidism, unspecified; K21.9 Gastro-esophageal reflux disease without esophagitis; F32.A Depression, unspecified; G62.9 Polyneuropathy, unspecified; Z87.891 Personal history of nicotine dependence; Z79.899 Other long term (current) drug therapy
CPT/HCPCS: 70450; 70496; 70498; 71045; 80053; 81001; 84443; 84484; 85025; 93005; 99283; Q9967

== ENCOUNTER → 2021-02-13 12:31 | Outpatient (BNVA) | payer MEDICAID, SELFPAY | PROVIDERS: PCP Nurse Practitioner Family; Referring Provider Nurse Practitioner Family; Visit Provider Nurse Practitioner | DX: R56.9 Unspecified convulsions (principal); Z85.3 Personal history of malignant neoplasm of breast; Z87.891 Personal history of nicotine dependence | CPT/HCPCS: 96116; 99204 ==

== ENCOUNTER → 2021-03-07 10:14 | Outpatient (BNVA) | payer MEDICAID, SELFPAY | PROVIDERS: PCP Nurse Practitioner Family; Referring Provider Nurse Practitioner; Visit Provider Specialist | DX: R56.9 Unspecified convulsions (principal); Z87.891 Personal history of nicotine dependence | CPT/HCPCS: 95816 ==

== ENCOUNTER 2021-03-16 13:58 | Outpatient (CLI) | payer MEDICAID, SELFPAY ==
[2021-03-16 14:28] LABS: Hematocrit 38.6 % (37.0-47.0); Hemoglobin 12.9 g/dL (11.5-15.3); Mean Corpuscular HGB Conc 33.4 g/dL (30.0-36.0); Mean Corpuscular Hemoglobin 31.9 pg (28.0-34.0); Mean Corpuscular Volume 95.5 fl (81-99); Mean Platelet Volume 8.7 fL (7.4-10.4); Platelet Count 249 10^3/cmm (130-400); Red Blood Count 4.04 10^6/uL (4.1-5.3); Red Cell Distribution Width 12.1 % (12.1-15.1); White Blood Count 6.7 10^3/uL (4.0-10.0)
[2021-03-16 14:45] LABS: Alanine Aminotransferase 38 U/L (0-33); Albumin Level 4.2 g/dL (3.5-5.2); Alkaline Phosphatase 111 IU/L (35-105); Anion Gap 16.6 (5-19); Aspartate Amino Transferase 23 U/L (0-32); Blood Urea Nitrogen 14 mg/dL (8-23); Calcium 8.8 mg/dL (8.5-10.5); Carbon Dioxide 27 mmol/L (22-29); Chloride 99 mmol/L (98-107); Globulin 2.7 g/dL (1.3-4.6); Glomerular Filtration Rate 50.7 mL/min (90-130); Glucose 94 mg/dL (65-115); Osmolality Calculated 288 mOsm/kg (285-295); Potassium 3.6 mmol/L (3.5-5.1); Sodium 139 mmol/L (136-145); Total Bilirubin 0.4 mg/dL (0.15-1.2); Total Protein 6.9 g/dL (6.6-8.7)
[2021-03-16 15:22] LABS: Absolute Neutrophil 3.4 10^3/cmm (1.4-6.5); Absolute Segmented Neutrophil 3.4 10/cmm (1.6-7.1); Eosinophils 1 %; Lymphocytes 33 %; Lymphocytes Absolute 2.9 10^3/cmm (1.2-3.4); Monocytes Absolute 0.3 10^3/cmm (0.1-0.6); Platelet Estimate Normal (Normal); Segmented Neutrophils 51 %; Total Cells Counted 100 (0-100)
== END 2021-03-16 13:59 | disposition home or self-care (01) ==
LOC: ONCMED 14:02
PROVIDERS: Internal Medicine Medical Oncology; PCP Nurse Practitioner Family; Visit Provider Nurse Practitioner Family
DX: C50.812 Malignant neoplasm of overlapping sites of left female breast (principal); Z17.0 Estrogen receptor positive status [ER+]; Z90.13 Acquired absence of bilateral breasts and nipples; I71.2 Thoracic aortic aneurysm, without rupture; E03.9 Hypothyroidism, unspecified; G62.0 Drug-induced polyneuropathy; T45.1X5A Adverse effect of antineoplastic and immunosuppressive drugs, initial encounter; F32.9 Major depressive disorder, single episode, unspecified; M85.89 Other specified disorders of bone density and structure, multiple sites; E55.9 Vitamin D deficiency, unspecified; Z79.818 Long term (current) use of other agents affecting estrogen receptors and estrogen levels; Z79.899 Other long term (current) drug therapy
CPT/HCPCS: 36415; 80053; 85007; 85025; 99214

== ENCOUNTER 2021-04-20 12:29 | Outpatient (CLI) | payer MEDICAID, SELFPAY ==
--- NOTE | 2021-04-20 12:45 | USCV_ITS ---
Natividad Guillermo Age: 60 Gender: F : 1960 Exam Date: 04/20/2021 13:04 Ordering Phys: Dino PritchardP MSN AGACNP-BC Technologist: ESTEBAN [place] [facility] [place]: Loss of vision TIA with confusion episode on December. No hx cardiac intervention. Bubble Study is ordered. BP: / HR: 72 Rhythm: Sinus Technical Quality: Adequate -- Negative Bubble Study MEASUREMENTS (Male / Female) Normal Values 2D ECHO LV Diastolic Diameter PLAX 3.8 cm 4.2 - 5.9 / 3.9 - 5.3 cm LV Systolic Diameter PLAX 2.8 cm IVS Diastolic Thickness 1.5 cm 0.6 - 1.0 / 0.6 - 0.9 cm IVS Systolic Thickness 1.8 cm LVPW Diastolic Thickness 1.5 cm 0.6 - 1.0 / 0.6 - 0.9 cm LVPW Systolic Thickness 1.4 cm LVOT Diameter 1.9 cm LV Ejection Fraction 2D Teich 53.7 % LV Ejection Fraction MOD 2C 74.5 % LV Ejection Fraction 2C AL 77.0 % LA Diameter 3.4 cm LA Width 3.4 cm LA Height 5.1 cm RA Width 4.1 cm RA Height 4.3 cm Aorta at Sinotubular Diameter 3.0 cm M-MODE Aortic Annulus Diameter 2.8 cm LA Ao Ratio MM 1.2 MV E Point Septal Separation 0.0 cm DOPPLER AV Peak Velocity 109.0 cm/s LVOT Peak Velocity 96.0 cm/s AV Area Cont Eq vti 2.5 cm squared AV Area Cont Eq pk 2.4 cm squared MV Area PHT 3.9 cm squared Mitral E to A Ratio 1.0 MV E' Velocity 58.0 cm/s Mitral E to MV E' Ratio 15.1 Mitral E to LV E' Lateral Ratio 18.4 Mitral E to LV E' Septal Ratio 13.0 TR Peak Velocity 234.3 cm/s TR Peak Gradient 22.0 mmHg TV Peak E Velocity 61.0 cm/s Right Atrial Pressure 5.0 mmHg Pulmonary Artery Systolic Pressu 27.0 mmHg PV Peak Velocity 98.0 cm/s RV Acceleration Time 0.1 s RV Ejection Time 0.4 s RV AcT/ET 0.3 FINDINGS Left Ventricle Normal left ventricular cavity size. Normal left ventricular systolic function. No regional wall motion abnormalities. Left ventricular ejection fraction is estimated at 60 %. Grade I/IV diastolic dysfunction (abnormal relaxation filling pattern), normal to mildly elevated filling pressures. Right Ventricle The right ventricle is normal in size and function. Right Atrium The right atrium is normal in size. Left Atrium The left atrium is normal in size. Mitral Valve Moderately thickened mitral valve. No mitral valve stenosis. Moderate mitral valve regurgitation. Aortic Valve Structurally normal aortic valve without significant sclerosis or stenosis. There is no aortic regurgitation. Tricuspid Valve Structurally normal tricuspid valve without significant stenosis or regurgitation. Pulmonary artery systolic pressure is normal. Pulmonic Valve Structurally normal pulmonic valve without significant stenosis. There is no pulmonic regurgitation. Pericardium Normal pericardium without effusion. Aorta Normal ascending aorta dimension. CONCLUSIONS 1-Normal left ventricular cavity size. Normal left ventricular systolic function. No regional wall motion abnormalities. Left ventricular ejection fraction is estimated at 60 %. Grade I/IV diastolic dysfunction (abnormal relaxation filling pattern), normal to mildly elevated filling pressures. 2-Moderately thickened mitral valve. No mitral valve stenosis. Moderate mitral valve regurgitation. 3-There is no pericardial effusion. 4-Pulmonary artery systolic pressure is within normal limits. 5-Right atrial pressure is around 5 mm of mercury. 6-There are no prior echocardiogram studies to compare. Zenon Chau MD (Electronically Signed) Final Date: 20 April 2021 20:07 S
== END 2021-04-20 12:30 | disposition home or self-care (01) ==
PROVIDERS: PCP Nurse Practitioner Family; Visit Provider Nurse Practitioner
DX: G45.9 Transient cerebral ischemic attack, unspecified (principal); I34.0 Nonrheumatic mitral (valve) insufficiency
CPT/HCPCS: C8929

== ENCOUNTER 2021-06-13 15:20 | Observation (INO) | payer MEDICAID, SELFPAY ==
[2021-06-13] VITALS (7 sets, daily range): BP systolic 122–169; BP diastolic 79–94; PULSE 79–95; RESP 15–20; TEMP 36.6–36.7; O2SAT 97–99; BMI 27.9; BMI 24.7
--- NOTE | 2021-06-13 15:22 | XR_ITS ---
WS: [id number] XR chest 1V portable [id number] REASON FOR EXAM: chest pain FINDINGS: The known aneurysm of the aortic arch appears larger than on the previous examination of 01/23/2021. No other significant interval change is identified compared to the previous examination of 01/23/2021 . No acute pulmonary parenchymal or pleural abnormality. XR/XR chest 1V portable [id number] IMPRESSION: Known aortic arch aneurysm appears larger, however this could be positional, ro tation. No other significant interval change.
--- NOTE | 2021-06-13 15:23 | ECG_ITS ---
[facility] Test Date: 2021-06-13 Pat Name: Natividad Guillermo Department: Room: Gender: Female Content Strategist: : 1960 Requested By: Tiff Serrano Order Number: [id number] Pippa MD: Feliberto Jones M.D. Measurements Intervals [place] Rate: 83 P: 70 VT: 144 QRS: 60 QRSD: 88 T: 76 QT: 372 QTc: 437 Interpretive Statements SINUS RHYTHM NONSPECIFIC T-WAVE ABNORMALITY Compared to ECG 01/23/2021 17:47:14 T-wave abnormality now present Electronically Signed On 06-13-2021 22:23:10 CDT by Feliberto Jones M.D. [id number]
[2021-06-13 15:45] LABS: Basophils # 0.1 10^3/uL (0.0-0.1); Basophils % 1.1 %; Eosinophils # 0.1 10^3/uL (0.0-0.8); Eosinophils % 1.7 %; Hematocrit 40.8 % (37.0-47.0); Hemoglobin 13.6 g/dL (11.5-15.3); Lymphocytes # 2.3 10^3/uL (0.8-4.8); Lymphocytes % 32.9 %; Mean Corpuscular HGB Conc 33.3 g/dL (30.0-36.0); Mean Corpuscular Hemoglobin 31.8 pg (28.0-34.0); Mean Corpuscular Volume 95.3 fl (81-99); Mean Platelet Volume 9.1 fL (7.4-10.4); Monocytes # 0.5 10^3/uL (0.2-0.9); Monocytes % 7.5 %; Neutrophils # 3.98 10^3/uL (1.8-7.7); Neutrophils % 56.5 %; Nucleated Red Blood Cells % 0 %; Platelet Count 236 10^3/cmm (130-400); Red Blood Count 4.28 10^6/uL (4.1-5.3); Red Cell Distribution Width 11.9 % (12.1-15.1); White Blood Count 7.1 10^3/uL (4.0-10.0)
--- NOTE | 2021-06-13 15:59 | W.ED.GENADLT ---
HPI - General Adult General: Chief complaint: Chest Pain Stated complaint: CHEST PAIN Time Seen by Provider: 06/13/21 15:22 History of Present Illness: Patient is a 60-year-old female history of POTS disease, thoracic aneurysm, TIA, hypothyroidism who presents the emergency room for evaluation of palpitation and chest pain. Patient tells me that over the last few days, she has had increased episodes of tachycardia followed by chest pain/pressure lasting for 5 to 10 minutes at a time. Patient also reports shortness of breath during these episodes of chest pain. Patient says that she has been up 5-10 episode. Patient has not been followed up recently by cardiology. Patient denies any history of cardiac issues, smoking, recent drug use, or any family history of cardiac issues. Patient's only other problem is thoracic aortic aneurysm for which she has been follow-up closely with Dr. Lechuga. Patient was recently seen on 12/2020 for TIA symptoms discharged home at that time with close followup. Patient has not had any residual neurological deficits since then. On arrival, patient denies any palpitation denies any chest pain. Onset: 3 days ago Duration:3 days Location:home Severity:moderate Associated symptoms: Reports chest pain and palpitations; Deny dyspnea, nausea, rash or vomiting Review of Systems Const: Denies: fever(s) or chills Eyes: Denies: change in vision ENMT: Denies: mouth pain Card: Reports: chest pain and palpitations Resp: Denies: dyspnea or non-productive cough GI: Denies: abdominal pain, nausea, vomiting or diarrhea : Denies: dysuria Musc: Denies: extremity pain Skin/Breast: Denies: rash or new lesions Neuro: Denies: weakness in extremities Psych: Reports: other (Normal mood) Jonathan/Lymph: Denies: easy bruising PFSH ED PFSH: Medical History Chronic foot pain from chemo Chronic hand pain from chemo Depression GERD (gastroesophageal reflux disease) Hypothyroidism Neuropathy associated with cancer Bilateral hands and feet from chemo and radiation Seizure-like activity Surgical History History of cholecystectomy History of heart surgery History of hysterectomy Family History Grandfather Heart disease Grandmother Heart disease Other Cancer Social History Smoking and tobacco status: former smoker Quit status (tobacco): has quit using tobacco Year quit tobacco: 2019 Alcohol intake: never History of recent travel: No Physical Exam Const: COMMON NORMALS: alert HENMT: COMMON NORMALS: atraumatic HEAD & SCALP: atraumatic MOUTH: moist mucous membranes not abnormal Eye: COMMON NORMALS: EOMs intact bilaterally and conjunctivae normal CONJUNCTIVA: Yes conjunctivae normal Neck/C-Spine: COMMON NORMALS: full ROM and supple Resp: COMMON NORMALS: normal respiratory effort and clear to auscultation bilaterally AUSCULTATION: clear to auscultation bilaterally Cardio: COMMON NORMALS: regular rate RATE: regular rate OTHER: 2+ radial pulses b/l GI: COMMON NORMALS: Soft to palpation and non-tender PALPATION: Yes Soft to palpation Extremity: COMMON NORMALS: full ROM OTHER: no LE swelling, no irina sign Neuro: SENSORIUM/ORIENTATION: Yes alert MOTOR EXAM: No Abnormal motor strength present and Other motor observations present (no focal motor deficits) Psych: COMMON NORMALS: speech normal SPEECH: Yes normal speech MOOD & AFFECT: Yes euthymic mood Course Vital Signs: Vital signs: Vital Signs Temperature 98.0 F 06/13/21 15:32 Pulse Rate 87 06/13/21 17:14 Respiratory Rate 18 06/13/21 17:14 Blood Pressure 149/79 06/13/21 17:14 Pulse Oximetry 98 06/13/21 17:14 MDM - General Adult Medical Decision Making [60]yo patient w/ hx of POTS disease, aortic aneurysm, TIA presenting to the ED With acute substernal chest pain X 3 days intermittent pressure like after episodes of palpitations. Given History And Exam today I have moderate to high suspicion for ACS/UA/NSTEMI. Today, I have NO suspicion for pneumothorax, pneumonia, pulmonary embolus, tamponade, aortic dissection or other emergent problem as a cause for this presentation. ECG did not show any signs of acute STEMI. Workup: ECG x 2, CXR, CBC, BMP, Troponin x 2 Intervention: ASA 325mg, SL nitroglycerin Findings: ECG: No overt evidence of STEMI, no hyperacute T waves, localizable STD or T wave inversions. No evidence of Brugada?s sign, delta wave, epsilon wave, significantly prolonged QTc, or malignant arrhythmia. No Q waves. Troponin: slightly leevated Other Labs unremarkable for emergent problems. CXR: Without PTX, PNA, or widened mediastinum [5:40pm] On reassessment, the patient is currently chest pain free. S/p aspirin 325mg. Will defer antiplatelet and anticoagulation to the inpatient team. Pending repeat troponin. HDS, AAOx3, no signs of respiratory distress, without refractory chest pain, no signs of malignant dysrhythmia on hospital monitor (VT/VF). Incidental findings of lymph node enlargement and thyroid goiter discussed extensively with patient. Patient received a copy of the CT report with the documented findings. Patient is instructed to follow up urgently with specialists. Disposition: Inpatient admission. Lab Data : 06/13/21 15:33 06/13/21 15: Radiology Impressions Chest X-Ray 06/13/21 15: IMPRESSION: Known aortic arch aneurysm appears larger, however this could be positional, rotation. No other significant interval change. Chest CTA 06/13/21 16:12 IMPRESSION: 1. 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 2. Diverticulosis without diverticulitis. 3. Several prominent mediastinal lymph nodes measuring up to 9.7 mm, similar to prior exam, nonspecific. 4. Hepatic cyst. 5. Cholecystectomy. 6. Right kidney cyst, negative for follow-up advised. 7. Minimal bilateral upper lobe ground-glass airspace opacities similar to prior exam, likely benign given stability. 8. Emphysematous changes. 9. Goiterous thyroid gland again seen similar to prior exam. Laboratory Results WBC 7.1 10^3/uL (4.0-10.0) 06/13/21 15:33 RBC 4.28 10^6/uL (4.1-5.3) 06/13/21 15:33 Hgb 13.6 g/dL (11.5-15.3) 06/13/21 15: Hct 40.8 % (37.0-47.0) 06/13/21 15: MCV 95.3 fl (81-99) 06/13/21 15: MCH 31.8 pg (28.0-34.0) 06/13/21 15: MCHC 33.3 g/dL (30.0-36.0) 06/13/21 15: RDW 11.9 % (12.1-15.1) L 06/13/21: Plt Count 236 10^3/cmm (130-400) 06/13/21 15: MPV 9.1 fL (7.4-10.4) 06/13/21 15: Neut % (Auto) 56.5 % 06/13/21: Lymph % (Auto) 32.9 % 06/13/21: [place] % (Auto) 7.5 % 06/13/21: Eos % (Auto) 1.7 % 06/13/21: Baso % (Auto) 1.1 % 06/13/21: Neut # (Auto) 3.98 10^3/uL (1.8-7.7) 06/13/21: Lymph # (Auto) 2.3 10^3/uL (0.8-4.8) 06/13/21: [place] # (Auto) 0.5 10^3/uL (0.2-0.9) 06/13/21: Eos # (Auto) 0.1 10^3/uL (0.0-0.8) 06/13/21: Baso # (Auto) 0.1 10^3/uL (0.0-0.1) 06/13/21: Nucleated RBC % (auto) 0 % 06/13/21: Nucleated RBCs # 0.0 /100WBC 06/13/21: D-Dimer 0.52 ug/mIFEU (0-0.59) 06/13/21 16:16 Sodium 141 mmol/L (136-145) 06/13/21 15: Potassium 4.0 mmol/L (3.5-5.1) 06/13/21 15: Chloride 102 mmol/L (98-107) 06/13/21 15: Carbon Dioxide 28 mmol/L (22-29) 06/13/21 15: Anion Gap 15.0 (5-19) 06/13/21 15: BUN 14 mg/dL (8-23) 06/13/21 15:33 Creatinine 1.3 mg/dL (0.5-0.9) H 06/13/21 15:33 GFR Calculation 41.8 mL/min (90-130) L 06/13/21 15:33 Glucose 100 mg/dL (65-115) 06/13/21 15:33 Calculated Osmolality 293 mOsm/kg (285-295) 06/13/21 15:33 Calcium 9.9 mg/dL (8.5-10.5) 06/13/21 15:33 Troponin T Baseline 13 ng/L (0-10) H 06/13/21 15:33 Imaging Data Other Imaging: Radiologist's impression: [facility] [address] [place] [address] XRay Report Signed Patient: Natividad Guillermo Unit #: [id number] : 1960 Age/Sex: 60 / F ADM Date: 06/13/21 Loc: ER Room/Bed: Attending Dr: Ordering Provider/Ordering MD: Tiff Serrano MD Date of Service: 06/13/21 Procedure(s): XR chest 1V portable [id number] Accession Number(s): [id number] Report Number: [id number] WS: [id number] XR chest 1V portable [id number] REASON FOR EXAM: chest pain FINDINGS: The known aneurysm of the aortic arch appears larger than on the previous examination of 01/23/2021. No other significant interval change is identified compared to the previous examination of 01/23/2021. No acute pulmonary parenchymal or pleural abnormality. XR/XR chest 1V portable [id number] IMPRESSION: Known aortic arch aneurysm appears larger, however this could be positional, rotation. No other significant interval change. ? Dictated By: Shan Banda Jr, MD Signed By: Shan Banda Jr, MD Signed Date/Time: 06/13/21 1606 DD/ 1600 [facility] [address] [address] [address] Scan Report Signed Patient: Natividad Guillermo Unit #: [id number] : 1960 Age/Sex: 60 / F ADM Date: 06/13/21 Loc: ER Room/Bed: Attending Dr: Ordering Provider/Ordering MD: Tiff Serrano MD Date of Service: 06/13/21 Procedure(s): CT angio chest 85958 Accession Number(s): [id number] Report Number: [id number] PROCEDURE INFORMATION: Exam: CTA Chest With Contrast Exam date and time: 06/13/2021 4:12 PM Age: 60 years old Clinical indication: Pain; Shortness of breath; Left-sided; Prior surgery; Surgery type: Aaa, doble mastectomy; Additional info: Eval for aortic aneurysm size TECHNIQUE: Imaging protocol: Computed tomographic angiography of the chest with contrast. 3D rendering (Not supervised by radiologist): MIP and/or 3D reconstructed images were created by the technologist. Radiation optimization: All CT scans at this facility use at least one of these dose optimization techniques: automated exposure control; mA and/or kV adjustment per patient size (includes targeted exams where dose is matched to clinical indication); or iterative reconstruction. Contrast material: VISI 320; Contrast volume: 95 ml; Contrast route: INTRAVENOUS (IV);? COMPARISON: CT angio chest 10390 10/26/2020 2:29 PM RADIATION DOSE METRICS: Total DLP (mGy-cm): 1614.32 FINDINGS: Pulmonary arteries: Normal. No pulmonary emboli. Aorta: Unremarkable. No aortic aneurysm. No aortic dissection. Thyroid: Goiterous thyroid gland again seen similar to prior exam. Lungs: Minimal bilateral upper lobe ground-glass airspace opacities similar to prior exam, likely benign given stability. Emphysematous changes. Pleural spaces: Unremarkable. No pneumothorax. No pleural effusion. Heart: Unremarkable. No cardiomegaly. No pericardial effusion. Lymph nodes: Several prominent mediastinal lymph nodes measuring up to 9.7 mm, similar to prior exam, nonspecific. Liver: Hepatic cyst. Gallbladder and bile ducts: Cholecystectomy. Kidneys and ureters: Right kidney cyst, negative for follow-up advised. Stomach and bowel: Diverticulosis without diverticulitis. Bones/joints: Unremarkable. No acute fracture. Soft tissues: Unremarkable. Other findings: Stable ascending thoracic aortic 3 cm peripherally calcified saccular aneurysm without rupture similar to prior exam. CT/CT angio chest 73775 IMPRESSION: 1. 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 2. Diverticulosis without diverticulitis. 3. Several prominent mediastinal lymph nodes measuring up to 9.7 mm, similar to prior exam, nonspecific. 4. Hepatic cyst. 5. Cholecystectomy. 6. Right kidney cyst, negative for follow-up advised. 7. Minimal bilateral upper lobe ground-glass airspace opacities similar to prior exam, likely benign given stability. 8. Emphysematous changes. 9. Goiterous thyroid gland again seen similar to prior exam. ? Dictated By: Hua Cameron MD Signed By: Hua Cameron MD Signed Date/Time: 06/13/21 1728 DD/ 1612 Discharge Plan Discharge Patient Disposition: Admitted As Inpatient Clinical Impression: Chest pain, Palpitation Condition: Stable Coding Level of Care Code ED Curve Saw Operator for Chg Fwd Exam Comprehensive
[2021-06-13 16:04] LABS: Blood Urea Nitrogen 14 mg/dL (8-23); Calcium 9.9 mg/dL (8.5-10.5); Carbon Dioxide 28 mmol/L (22-29); Chloride 102 mmol/L (98-107); Glomerular Filtration Rate 41.8 mL/min (90-130); Glucose 100 mg/dL (65-115); Osmolality Calculated 293 mOsm/kg (285-295); Sodium 141 mmol/L (136-145)
--- NOTE | 2021-06-13 16:12 | CTR_ITS ---
PROCEDURE INFORMATION: Exam: CTA Chest With Contrast Exam date and time: 06/13/2021 4:12 PM Age: 60 years old Clinical indication: Pain; Shortness of breath; Left-sided; Prior surgery; Surgery type: Aaa, doble mastectomy; Additional info: Eval for aortic aneurysm size TECHNIQUE: Imaging protocol: Computed tomographic angiography of the chest with contrast. 3D rendering (Not supervised by radiologist): MIP and/or 3D reconstructed images were created by the technologist. Radiation optimization: All CT scans at this facility use at least one of these dose optimization techniques: automated exposure control; mA and/or kV adjustment per patient size (includes targeted exams where dose is matched to clinical indication); or iterative reconstruction. Contrast material: VISI 320; Contrast volume: 95 ml; Contrast route: INTRAVENOUS (IV); COMPARISON: CT angio chest 28002 10/26/2020 2:29 PM RADIATION DOSE METRICS: Total DLP (mGy-cm): 1614.32 FINDINGS: Pulmonary arteries: Normal. No pulmonary emboli. Aorta: Unremarkable. No aortic aneurysm. No aortic dissection. Thyroid: Goiterous thyroid gland again seen similar to prior exam. Lungs: Minimal bilateral upper lobe ground-glass airspace opacities similar to prior exam, likely benign given stability. Emphysematous changes. Pleural spaces: Unremarkable. No pneumothorax. No pleural effusion. Heart: Unremarkable. No cardiomegaly. No pericardial effusion. Lymph nodes: Several prominent mediastinal lymph nodes measuring up to 9.7 mm, similar to prior exam, nonspecific. Liver: Hepatic cyst. Gallbladder and bile ducts: Cholecystectomy. Kidneys and ureters: Right kidney cyst, negative for follow-up advised. Stomach and bowel: Diverticulosis without diverticulitis. Bones/joints: Unremarkable. No acute fracture. Soft tissues: Unremarkable. Other findings: Stable ascending thoracic aortic 3 cm peripherally calcified saccular aneurysm without rupture similar to prior exam. CT/CT angio chest [id number] IMPRESSION: 1. 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 2. Diverticulosis without diverticulitis. 3. Several prominent mediastinal lymph nodes measuring up to 9.7 mm, similar to prior exam, nonspecific. 4. Hepatic cyst. 5. Cholecystectomy. 6. Right kidney cyst, negative for follow-up advised. 7. Minimal bilateral upper lobe ground-glass airspace opacities similar to prior exam, likely benign given stability. 8. Emphysematous changes. 9. Goiterous thyroid gland again seen similar to prior exam.
[2021-06-13 16:55] LABS: Troponin(5th) Baseline 13 ng/L (0-10)
[2021-06-13] MEDS: iodixanol 320 mg/mL 100mL Btl IV (16:58)
[2021-06-13 17:00] LABS: D Dimer 0.52 ug/mIFEU (0-0.59)
--- NOTE | 2021-06-13 17:23 | ECG_ITS ---
[facility] Test Date: 2021-06-13 Pat Name: Natividad Guillermo Department: Room: Gender: Female Claim Manager: : 1960 Requested By: Tiff Serrano Order Number: [id number] Pippa MD: Feliberto Jones M.D. Measurements Intervals [place] Rate: 81 P: 72 HI: 149 QRS: 53 QRSD: 90 T: 65 QT: 381 QTc: 443 Interpretive Statements SINUS RHYTHM Compared to ECG 06/13/2021 15:34:11 T-wave abnormality no longer present Electronically Signed On 06-14-2021 20:25:02 CDT by Feliberto Jones M.D. [id number]
[2021-06-13 18:13] LABS: Troponin 5 2HR 23.98 ng/L (0-10)
[2021-06-13 18:18] LABS: Troponin 5 2HR Delta 10.98 ABS# (0-10)
--- NOTE | 2021-06-13 18:25 | PM.HP ---
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 Patient stating that she has been experiencing multiple episodes of sweating once or twice in an hour for last few weeks and this time this is noticeable with palpitations and bilateral shoulder pain. She does experience multiple joint pains because of her osteoarthritis, she has very sensitive nerves due to chemotherapy-induced neuropathy. Because of worsening of her symptoms she decided to come to the ED for further evaluation, she has not experienced any orthopnea, PND, fever, diarrhea, chest discomfort. In the ER she was given therapeutic dose of aspirin, EKG is unremarkable, sinus rhythm without ischemic or infarctive changes, troponin delta 10 Patient was asking for gabapentin and omeprazole before eating her dinner, she is endorsing without omeprazole she would vomit She is hemodynamically stable currently on room air Uses CPAP at night Plan for stress test tomorrow morning Review of Systems Const: Denies: chills Eyes: Denies: change in vision ENMT: Denies: throat pain Card: Reports: palpitations Resp: Denies: dyspnea GI: Denies: abdominal pain : Denies: flank pain Musc: Reports: back pain and extremity pain Skin/Breast: Denies: rash Neuro: Denies: headache(s) Psych: Reports: anxiety Endo: Denies: polyuria Jonathan/Lymph: Denies: easy bruising All/Imm: Denies: urticaria Medications/Allergies Home Medications Medication Instructions Recorded Confirmed Last Taken Type lactobacillus combination no.9 1 cap PO QPM 04/27/19 06/13/21 06/12/21 History [Adult 50 Plus Probiotic] hydrocodone 10 mg-acetaminophen 1 tab PO Q4H PRN 09/25/19 06/13/21 06/13/21 07:15 History 325 mg tablet beta carotene 25,000 unit capsule 25,000 unit PO QPM 05/04/20 06/13/21 Unknown History calcium carbonate 600 mg calcium 600 mg PO BID 05/04/20 06/13/21 06/13/21 History (1,500 mg) tablet (Calcium) letrozole 2.5 mg tablet 2.5 mg PO QPM 05/04/20 06/13/21 06/12/21 History selenium 50 mcg tablet 50 mcg PO QPM 06/06/20 06/13/21 06/12/21 History zinc 50 mg tablet 50 mg PO QPM 08/04/20 06/13/21 06/12/21 History aspirin 81 mg capsule 81 mg PO BEDTIME 06/13/21 06/13/21 06/13/21 History 324 mg atorvastatin 20 mg tablet 20 mg PO BEDTIME 06/13/21 06/13/21 06/12/21 History cetirizine 10 mg tablet 10 mg PO BEDTIME 06/13/21 06/13/21 06/12/21 History cholecalciferol (vitamin D3) 25 50 mcg PO BEDTIME cap 06/13/21 06/13/21 06/12/21 History mcg (1,000 unit) capsule dicyclomine 10 mg capsule 10 mg PO DAILY PRN cap 06/13/21 06/13/21 Unknown History duloxetine 30 mg capsule,delayed 90 mg PO QPM 06/13/21 06/13/21 06/12/21 History release fluticasone propionate 50 2 spray INTRANASAL DAILY PRN 06/13/21 06/13/21 Unknown History mcg/actuation nasal spray,suspension gabapentin 100 mg capsule 200 mg PO BID 06/13/21 06/13/21 06/13/21 History montelukast 10 mg tablet 10 mg PO QPM 06/13/21 06/13/21 06/12/21 History omeprazole 40 mg capsule,delayed 40 mg PO QPM 06/13/21 06/13/21 Unknown History release oxybutynin chloride 10 mg 10 mg PO QPM 06/13/21 06/13/21 06/12/21 History tablet,extended release 24 hr total beet 1 tab PO BEDTIME 06/13/21 06/13/21 06/12/21 History vitamin B complex 1 tab PO QPM 06/13/21 06/13/21 06/12/21 History Allergies Allergy/AdvReac Type Severity Reaction Status Date / Time cephalexin [From Keflex] Allergy Unknown Verified 06/13/21 13:32 Penicillins Allergy Unknown Verified 06/13/21 13:32 Sulfa (Sulfonamide Allergy ALGY-Hives Verified 06/13/21 13:32 Antibiotics) sulfamethoxazole Allergy Unknown Verified 06/13/21 13:32 [From Bactrim] trimethoprim [From Bactrim] Allergy Unknown Verified 06/13/21 13:32 PFSH Acute PFSH: Medical History (Updated 06/13/21 @ 19:23 by Zenon Herndon MD) Chronic foot pain from chemo Chronic hand pain from chemo Depression GERD (gastroesophageal reflux disease) Hypothyroidism Neuropathy associated with cancer Bilateral hands and feet from chemo and radiation Seizure-like activity Thoracic aortic aneurysm Surgical History History of cholecystectomy History of heart surgery History of hysterectomy Family History Grandfather Heart disease Grandmother Heart disease Other Cancer Social History Smoking and tobacco status: former smoker Quit status (tobacco): has quit using tobacco Year quit tobacco: 2019 Alcohol intake: never History of recent travel: No Vitals/I&O/Wt Last Vital Signs Temp 98.0 F 06/13/21 15:32 Pulse 87 06/13/21 18:20 Resp 18 06/13/21 18:20 BP 149/79 06/13/21 18:20 Pulse Ox 98 06/13/21 18:20 Weight last 48 hrs Weight 93.44 kg Physical Exam Narrative: middle-aged female Euvolemic No active chest pain Hemodynamically stable Saturating well on room air No audible stridor or wheezing Nonfocal neuro exam Very sensitive left She did not let me take up the blankets, very sensitive to slight touch Abdomen is soft Data : 06/13/21 15:33 06/13/21 15:33 A&P Assessment and plan (1) Palpitation: Status: Acute (2) Chronic kidney disease: Status: Acute Plan Angina equivalent Stress test tomorrow Repeat echo Chronic disease at baseline, no active exacerbation No active chest pain Delta troponin X I would not start ACS protocol at this point No signs of ischemia or infarction on EKG CT without PE Stable 3 cm thoracic aortic aneurysm, outpatient follow-up with Dr. Lechuga N.p.o. after midnight Avoid metoprolol Continue gabapentin omeprazole She does need a lot of antidepressants for her neuropathic pain Mediastinal lymphadenopathy similar dimension as compared to previous Full code Cardiac diet CPAP overnight Attestations Medical Necessity Statement*: Less than 2 midnights anticipated Time Spent in Patient Care: 35min Coding Level of Care Code Acute Experimental Rocket Sled Mechanic for Chg Fwd Diagnoses Palpitation R00.2 Chronic kidney disease N18.9
--- NOTE | 2021-06-13 19:13 | USCV_ITS ---
Transthoracic Echo Natividad Guillermo Age: 60 Gender: F : 1960 Exam Date: 06/13/2021 19:45 Ordering Phys: Zenon Herndon MD Technologist: Efrain Jean-Baptiste Exam Location: [facility] [place] Indication: Angina BP: 115 / 60 HR: 81 Rhythm: Sinus Technical Quality: Adequate MEASUREMENTS (Male / Female) Normal Values 2D ECHO LV Diastolic Diameter PLAX 3.4 cm 4.2 - 5.9 / 3.9 - 5.3 cm LV Systolic Diameter PLAX 2.1 cm IVS Diastolic Thickness 0.9 cm 0.6 - 1.0 / 0.6 - 0.9 cm IVS Systolic Thickness 1.8 cm LVPW Diastolic Thickness 1.2 cm 0.6 - 1.0 / 0.6 - 0.9 cm LVPW Systolic Thickness 1.5 cm LVOT Diameter 1.5 cm LV Ejection Fraction 2D Teich 71.3 % LV Ejection Fraction MOD 2C 63.6 % LV Ejection Fraction 2C AL 63.7 % LA Diameter 2.6 cm LA Width 2.8 cm LA Height 4.0 cm RA Width 3.3 cm RA Height 3.3 cm Aorta at Sinotubular Diameter 1.8 cm M-MODE Aortic Annulus Diameter 4.1 cm LA Ao Ratio MM 0.8 DOPPLER AV Peak Velocity 115.8 cm/s LVOT Peak Velocity 95.0 cm/s AV Area Cont Eq vti 1.5 cm squared AV Area Cont Eq pk 1.4 cm squared MV Peak Velocity 113.0 cm/s MV Area PHT 3.7 cm squared Mitral E to A Ratio 0.7 MV E' Velocity 40.5 cm/s Mitral E to MV E' Ratio 12.3 Mitral E to LV E' Lateral Ratio 13.9 Mitral E to LV E' Septal Ratio 11.2 TR Peak Velocity 103.7 cm/s TR Peak Gradient 4.3 mmHg TR Mean Velocity 73.5 cm/s TR Mean Gradient 2.4 mmHg TR Velocity Time Integral 22.1 cm Right Atrial Pressure 5.0 mmHg Pulmonary Artery Systolic Pressu 9.3 mmHg PV Peak Velocity 103.0 cm/s RV Acceleration Time 0.3 s RV Ejection Time 0.5 s RV AcT/ET 0.7 FINDINGS Left Ventricle Normal left ventricular size. LV systolic function is normal with EF of 55-60%. No regional wall motion abnormalities. Grade 1 diastolic dysfunction Right Ventricle The right ventricle is normal in size and function. Right Atrium The right atrium is normal in size. Left Atrium The left atrium is normal in size. Mitral Valve Structurally normal mitral valve without significant stenosis or prolapse. There is mild mitral regurgitation. Aortic Valve Structurally normal aortic valve without significant sclerosis or stenosis. There is no aortic regurgitation. Tricuspid Valve Structurally normal tricuspid valve without significant stenosis . Mild tricuspid regurgitation. Pulmonary artery systolic pressure is normal. Pulmonic Valve Not well visualized Pericardium Trivial pericardial effusion Aorta Normal ascending aorta dimension. CONCLUSIONS LV systolic function is normal with EF of 55-60% Grade 1 diastolic dysfunction Mild mitral regurgitation Mild tricuspid regurgitation Trivial pericardial effusion is seen Compared to prior echocardiogram from 04/20/2021, patient now has trivial pericardial effusion Feliberto Jones MD (Electronically Signed) Final Date: 14 June 2021 17:20 S
--- NOTE | 2021-06-13 19:13 | ECG_ITS ---
[facility] [place] Date: 2021-06-14 Pat Name: Natividad Guillermo Department: Room: 270 Gender: Female Brand Manager: Shahrzad Dillon : 1960 Requested By: Zenon Herndon Order Number: [id number] Reading MD: Tess Ace M.D. Interpretive Statements NAME OF STUDY: LEXISCAN SESTAMIBI STRESS TEST INDICATION: Angina, PROCEDURE: At the baseline, the EKG revealed normal sinus rhythm with diffuse nonspecific T wave changes. Poor R wave progression. The baseline blood pressure was 140/90 mm Hg with a heart rate of 99 beats/min. Lexiscan was infused over a period of 20 seconds. A total of 0.4 milligrams of Lexiscan was infused. The stress phase was continued for a total of 5 minutes. Heart rate at the end of the stress phase was 103 with a blood pressure 152/88. The EKG at the peak infusion revealed no significant changes. Sestamibi was injected 20 seconds after the Lexiscan infusion. Blood pressure at the end of the recovery phase was 151/85 with a heart rate of 100 per minute. CONCLUSION: 1. No significant EKG changes with the LexiScan infusion 2. No LexiScan induced chest pain or cardiac arrhythmia 3. Normal blood pressure and heart rate response 4. Sestamibi/sestamibi perfusion scan pending; see separate report. Electronically Signed On 06-17-2021 13:11:32 CDT by Tess Ace M.D. [email or web address] ([id number]
[2021-06-13] MEDS: atorvastatin 40 mg Tablet 20 MG PO (20:54)
[2021-06-13] MEDS: enoxaparin 40 mg/0.4 mL Syringe SUBCUT (20:54)
[2021-06-13] MEDS: aspirin 81 mg EC Tablet PO (20:54)
[2021-06-13] MEDS: pantoprazole DR 40 mg Tablet PO (20:54)
[2021-06-13] MEDS: gabapentin 100 mg Capsule 200 MG PO (20:54)
--- NOTE | 2021-06-13 21:23 | ECG_ITS ---
[facility] Test Date: 2021-06-13 Pat Name: Natividad Guillermo Department: Room: 270 Gender: Female Fur Nailer: : 1960 Requested By: Tiff Serrano Order Number: [id number] Reading MD: Feliberto Jones M.D. Measurements Intervals Leigh Rate: 80 P: 66 DE: 151 QRS: 43 QRSD: 85 T: 73 QT: 376 QTc: 435 Interpretive Statements SINUS RHYTHM NONSPECIFIC T-WAVE ABNORMALITY Compared to ECG 06/13/2021 17:19:42 T-wave abnormality now present Electronically Signed On 06-14-2021 18:54:31 CDT by Feliberto Jones M.D. [id number]
[2021-06-13 21:34] LABS: Troponin 5 6HR 13.31 ng/L (0-10)
[2021-06-13 21:39] LABS: Troponin 5 6HR Delta 0.31 ng/L (0-12)
[2021-06-13] MEDS: duloxetine 30 MG, duloxetine 60 MG 90 MG PO (21:50)
[2021-06-13] MEDS: HYDROcodone-acetaminophen 10-325 mg Tablet 1 TAB PO (21:50)
[2021-06-13] MEDS: montelukast sodium 10 mg Tablet PO (21:50)
[2021-06-14] VITALS (8 sets, daily range): BP systolic 123–143; BP diastolic 66–90; PULSE 82–96; RESP 16–18; TEMP 36.4–37; O2SAT 93–98
[2021-06-14 05:04] LABS: Basophils # 0.1 10^3/uL (0.0-0.1); Eosinophils # 0.2 10^3/uL (0.0-0.8); Eosinophils % 2.4 %; Hematocrit 40.1 % (37.0-47.0); Hemoglobin 13.3 g/dL (11.5-15.3); Lymphocytes # 2.8 10^3/uL (0.8-4.8); Lymphocytes % 40.9 %; Mean Corpuscular HGB Conc 33.2 g/dL (30.0-36.0); Mean Corpuscular Hemoglobin 31.3 pg (28.0-34.0); Mean Corpuscular Volume 94.4 fl (81-99); Mean Platelet Volume 9.1 fL (7.4-10.4); Monocytes # 0.5 10^3/uL (0.2-0.9); Monocytes % 6.8 %; Neutrophils # 3.29 10^3/uL (1.8-7.7); Neutrophils % 48.8 %; Nucleated Red Blood Cells % 0 %; Platelet Count 234 10^3/cmm (130-400); Red Blood Count 4.25 10^6/uL (4.1-5.3); White Blood Count 6.8 10^3/uL (4.0-10.0)
[2021-06-14 05:21] LABS: Anion Gap 13.7 (5-19); Blood Urea Nitrogen 15 mg/dL (8-23); Calcium 9.7 mg/dL (8.5-10.5); Carbon Dioxide 29 mmol/L (22-29); Chloride 102 mmol/L (98-107); Glomerular Filtration Rate 41.8 mL/min (90-130); Glucose 94 mg/dL (65-115); Osmolality Calculated 293 mOsm/kg (285-295); Potassium 3.7 mmol/L (3.5-5.1); Sodium 141 mmol/L (136-145)
[2021-06-14] MEDS: regadenoson 0.4 Mg/5 ml Syringe IVP (07:56)
[2021-06-14] MEDS: HYDROcodone-acetaminophen 10-325 mg Tablet 1 TAB PO (09:23)
[2021-06-14] MEDS: gabapentin 100 mg Capsule 200 MG PO ×2 (09:24→17:33)
--- NOTE | 2021-06-14 12:31 | PC.CHAP ---
Pastoral Care Encounter/Spiritual Assessment Type of Contact [] Declined medical insurance coding specialist visit [] Patient/Family/Request visit [] Outpatient visit [] Follow-up visit [] Physician referral [] Code/Alert [x] Routine visit [] Staff referral [] Actively dying [] Patient sleeping [] Family support [] [] Out of room [] Palliative care [] [] Receiving care in room [] Pre-surgical visit [] Trauma [] Long length of stay [] ICU visit [] Other: Relational/Emotional Strength [x] Patient feels connected with others/family/visitors/staff [] Distress [] Loneliness/isolation [] Abandonment Spirituality of Patient [x] Person of Myra [] Attends Holiness of their Myra [x] Believes in Prayer [] Reads Bible or Yazdanism materials [] There are Spiritual issues to be addressed Patch Setter Interventions [x] Prayer x] Active listening x[] Non-anxious presence [x] Spiritual/emotional support [] Crisis/trauma care [] Spiritual counseling [] Bereavement support [] Provided bereavement packet [] Provided Bible/devotional materials [] Provided toy/stuffed animal, coloring book to patient or family member [] Provided Communion [] Anointing/[place] [] Salvation [x] Completed spiritual assessment [] Other: Impact on Illness or Injury [] Angry [] Fearful [] Anxious [] Often cries [] Exhaustion [] Unable to work [] Unable to attend rastafarian [] Unable to walk/stand [] Unable to read [] Unable to drive [] Unable to eat/drink [] Unable to sleep [] Unable to be with family [] Patient intubated [] Other: Summary Time spent with patient 10 min
--- NOTE | 2021-06-14 17:19 | P.DS_ITS ---
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 Patient stating that she has been experiencing multiple episodes of sweating once or twice in an hour for last few weeks and this time this is noticeable with palpitations and bilateral shoulder pain.? She does experience multiple joint pains because of her osteoarthritis, she has very sensitive nerves due to chemotherapy-induced neuropathy.? Because of worsening of her symptoms she decided to come to the ED for further evaluation, she has not experienced any orthopnea, PND, fever, diarrhea, chest discomfort. In the ER she was given therapeutic dose of aspirin, EKG is unremarkable, sinus rhythm without ischemic or infarctive changes, troponin delta 10 Patient was asking for gabapentin and omeprazole before eating her dinner, she is endorsing without omeprazole she would vomit She is hemodynamically stable currently on room air Uses CPAP at night Hospital course Patient was admitted for management evaluation of atypical chest pain. Stress test was unremarkable. Echo did not show any significant wall motion abnormality. Patient will be discharged home in stable condition. I have not made any changes in her home medications. She can follow-up with her PCP. Creatinine remained stable. EF 70%. CTA chest rule out PE. Physical Exam Narrative: Patient is laying flat Saturating well on room air No active chest pain Hemodynamically stable Nonfocal neuro exam Abdomen soft No active audible stridor or wheezing Discharge Data Studies Completed and Pending Completed Studies During Hospitalization Category Date Time Status CT angio chest [id number] Urgent Cat Scan 06/13/21 16:12 Completed Sestamibi Stress Test Request Routine Exams 06/13/21 19:13 Draft XR chest 1V portable [id number] Urgent Exams 06/13/21 15:22 Completed NM sabine perf SPECT r/s* [id number] Routine Nuc Med 06/14/21 19:13 Completed Pending at discharge Category Date Time Status CV. echo complete* [id number] Routine Ultrasound 06/13/21 19:13 Taken Radiology Impressions Chest X-Ray 06/13/21 15:22 IMPRESSION: Known aortic arch aneurysm appears larger, however this could be positional, rotation. No other significant interval change. Chest CTA 06/13/21 16:12 IMPRESSION: 1. 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 2. Diverticulosis without diverticulitis. 3. Several prominent mediastinal lymph nodes measuring up to 9.7 mm, similar to prior exam, nonspecific. 4. Hepatic cyst. 5. Cholecystectomy. 6. Right kidney cyst, negative for follow-up advised. 7. Minimal bilateral upper lobe ground-glass airspace opacities similar to prior exam, likely benign given stability. 8. Emphysematous changes. 9. Goiterous thyroid gland again seen similar to prior exam. Laboratory Results WBC 6.8 10^3/uL (4.0-10.0) 06/14/21 04:30 RBC 4.25 10^6/uL (4.1-5.3) 06/14/21 04:30 Hgb 13.3 g/dL (11.5-15.3) 06/14/21 04:30 Hct 40.1 % (37.0-47.0) 06/14/21 04:30 MCV 94.4 fl (81-99) 06/14/21 04:30 MCH 31.3 pg (28.0-34.0) 06/14/21 04:30 MCHC 33.2 g/dL (30.0-36.0) 06/14/21 04:30 RDW 12.0 % (12.1-15.1) L 06/14/21 04:30 Plt Count 234 10^3/cmm (130-400) 06/14/21 04:30 MPV 9.1 fL (7.4-10.4) 06/14/21 04:30 Neut % (Auto) 48.8 % 06/14/21 04:30 Lymph % (Auto) 40.9 % 06/14/21 04:30 [place] % (Auto) 6.8 % 06/14/21 04:30 Eos % (Auto) 2.4 % 06/14/21 04:30 Baso % (Auto) 1.0 % 06/14/21 04:30 Neut # (Auto) 3.29 10^3/uL (1.8-7.7) 06/14/21 04:30 Lymph # (Auto) 2.8 10^3/uL (0.8-4.8) 06/14/21 04:30 [place] # (Auto) 0.5 10^3/uL (0.2-0.9) 06/14/21 04:30 Eos # (Auto) 0.2 10^3/uL (0.0-0.8) 06/14/21 04:30 Baso # (Auto) 0.1 10^3/uL (0.0-0.1) 06/14/21 04:30 Nucleated RBC % (auto) 0 % 06/14/21 04:30 Nucleated RBCs # 0.0 /100WBC 06/14/21 04:30 D-Dimer 0.52 ug/mIFEU (0-0.59) 06/13/21 16:16 Sodium 141 mmol/L (136-145) 06/14/21 04:30 Potassium 3.7 mmol/L (3.5-5.1) 06/14/21 04:30 Chloride 102 mmol/L (98-107) 06/14/21 04:30 Carbon Dioxide 29 mmol/L (22-29) 06/14/21 04:30 Anion Gap 13.7 (5-19) 06/14/21 04:30 BUN 15 mg/dL (8-23) 06/14/21 04:30 Creatinine 1.3 mg/dL (0.5-0.9) H 06/14/21 04:30 GFR Calculation 41.8 mL/min (90-130) L 06/14/21 04:30 Glucose 94 mg/dL (65-115) 06/14/21 04:30 Calculated Osmolality 293 mOsm/kg (285-295) 06/14/21 04:30 Calcium 9.7 mg/dL (8.5-10.5) 06/14/21 04:30 Troponin T Baseline 13 ng/L (0-10) H 06/13/21 15:33 Troponin T 120 Minute 23.98 ng/L (0-10) H 06/13/21 17:00 Delta Troponin T 10.98 ABS# (0-10) H* 06/13/21 17:00 Troponin T Hi Sens 6Hr 13.31 ng/L (0-10) H 06/13/21 21:00 Troponin T Hi Sens 6Hr Delta 0.31 ng/L (0-12) 06/13/21 21:00 Vitals Last Vital Signs Temp 97.8 F 06/14/21 15:38 Pulse 88 06/14/21 15:38 Resp 18 06/14/21 15:38 BP 143/72 06/14/21 15:38 Pulse Ox 96 06/14/21 15:38 Discharge Plan Discharge Patient Disposition: Home Condition: Stable Prescriptions: Continued lactobacillus combination no.9 1 cap PO QPM 0RF hydrocodone-acetaminophen 10-325 mg tablet 1 tab PO Q4H PRN (Reason: Pain) 0RF selenium 50 mcg tablet 50 mcg PO QPM 0RF dicyclomine 10 mg capsule 10 mg PO DAILY PRN (Reason: ibs) 0RF total beet 1 tab PO BEDTIME 0RF letrozole 2.5 mg tablet 2.5 mg PO QPM 0RF calcium carbonate [Calcium 600] 600 mg calcium (1,500 mg) tablet 600 mg PO BID 0RF beta carotene 25,000 unit capsule 25,000 unit PO QPM 0RF Rx Instructions: administer with a meal zinc 50 mg tablet 50 mg PO QPM 0RF cholecalciferol (vitamin D3) 25 mcg (1,000 unit) capsule 50 mcg PO BEDTIME 0RF vitamin B complex Tablet 1 tab PO QPM 0RF atorvastatin 20 mg tablet 20 mg PO BEDTIME 0RF cetirizine 10 mg tablet 10 mg PO BEDTIME 0RF oxybutynin chloride 10 mg tablet extended release 24hr 10 mg PO QPM 0RF omeprazole 40 mg capsule,delayed release(DR/EC) 40 mg PO QPM 0RF montelukast 10 mg tablet 10 mg PO QPM 0RF gabapentin 100 mg capsule 200 mg PO BID 0RF fluticasone propionate 50 mcg/actuation spray,suspension 2 spray INTRANASAL DAILY PRN (Reason: allergy symptoms) 0RF duloxetine 30 mg capsule,delayed release(DR/EC) 90 mg PO QPM 0RF aspirin 81 mg capsule 81 mg PO BEDTIME 0RF Discharge Orders: Discharge Order (Routine); Ordered 06/14/21 Ordered By: Zenon Herndon Referrals: Romana Nelson NP [Primary Care Provider] - Discharge Diet: Cardiac Discharge Activity: Increase activity as tolerated Patient Instructions: Chest Pain (DC), Chronic Kidney Disease (DC), Opioid Safety Discharge Attestations Time Spent in Discharge Care*: less than 30 min Quality Metrics Clinical Quality Measures [ No reported AMI, CVA or VTE this stay] Coding Level of Care Code Acute Chg FW DC note Diagnoses Palpitation R00.2 Chronic kidney disease N18.9
[2021-06-14] MEDS: oxybutynin chloride XL 5 MG TABLET 10 MG PO (17:32)
[2021-06-14] MEDS: duloxetine 30 mg Capsule 90 MG PO (17:32)
[2021-06-14] MEDS: montelukast sodium 10 mg Tablet PO (17:33)
[2021-06-14] MEDS: pantoprazole DR 40 mg Tablet PO (17:33)
--- NOTE | 2021-06-14 19:13 | NMCV_ITS ---
NM sabine perf SPECT r/s* [id number] Natividad Guillermo Age: 60 Gender: F : 1960 Exam Date: 06/14/2021 19:13 Ordering Phys: Zenon Herndon MD Technologist: BARON Benavidez Exam Location: [facility] Indications: CHEST PAIN STRESS TEST Please see separate stress test report in [facility] for full findings IMAGE PROTOCOL Rest/Stress 1 Lexiscan Day Radiopharmaceutical Dose (mCi) Administration Site Administered by Rest: Tc-99m 10.9 IV BARON Bullock Sestamibi Stress:Tc-99m 32.8 IV BARON Bullock Sestamibi Rest: 14-Jun-2021 60 Discovery 630 Stress: 14-Jun-2021 30 Discovery 630 0.4mg Lexiscan. Images obtained in supine and prone position. SPECT RESULTS Technical Quality: Excellent Raw Data Analysis: Normal Image Corrections: No attenuation or motion correction applied Summed Stress Score: 0 Summed Rest Score: 0 Summed Difference Score: 0 PERFUSION FINDINGS Fairly uniform myocardial tracer uptake with no significant perfusion normalities FUNCTIONAL RESULTS (calculated via Gated SPECT) Stress Image LV EF (%): 70 Stress EDV (mL):53 TID: 0.9 Stress ESV (mL):16 FUNCTIONAL FINDINGS: Segmental wall motion analysis revealing no gross wall motion normalities. IMPRESSIONS 1. Unremarkable myocardial perfusion imaging 2. Normal LV ejection fraction 70%. 3. LV wall motion analysis revealing no gross wall motion abnormalities. 4. Normal LV volume. Low probability for coronary ischemia, based on the above findings Dr Tess Ace MD FAC (Electronically Signed) Final Date: 14 June 2021 17:16 S
== END 2021-06-14 17:45 | disposition home or self-care (01) ==
LOC: ER 17:19 → MEDSURG 18:25
PROVIDERS: Admitting Provider Internal Medicine; Emergency Provider Emergency Medicine; PCP Nurse Practitioner Family; Visit Provider Internal Medicine
DX: R00.2 Palpitations (principal); N18.9 Chronic kidney disease, unspecified; Z85.3 Personal history of malignant neoplasm of breast; Z90.13 Acquired absence of bilateral breasts and nipples; Z92.21 Personal history of antineoplastic chemotherapy; G62.9 Polyneuropathy, unspecified; M79.7 Fibromyalgia; Z79.82 Long term (current) use of aspirin; E03.9 Hypothyroidism, unspecified; F32.9 Major depressive disorder, single episode, unspecified; Z87.891 Personal history of nicotine dependence
CPT/HCPCS: 36415; 71045; 71275; 78452; 80048; 84484; 85025; 85378; 93005; 93017; 93306; 94660; 96372; 99285; A9500; G0378; J1650; J2785; Q9967

== ENCOUNTER → 2021-08-16 12:55 | Outpatient (BNVA) | payer MEDICAID, SELFPAY | PROVIDERS: PCP Nurse Practitioner Family; Visit Provider Nurse Practitioner | DX: R41.3 Other amnesia (principal); R51.9 Headache, unspecified; C50.919 Malignant neoplasm of unspecified site of unspecified female breast | CPT/HCPCS: 99213; 99214 ==

== ENCOUNTER 2021-10-26 12:25 | Oncology outpatient (recurring) (ONCR) | payer MEDICAID, SELFPAY ==
[2021-10-26 12:48] LABS: Basophils # 0.1 10^3/uL (0.0-0.1); Basophils % 1.2 %; Eosinophils # 0.1 10^3/uL (0.0-0.8); Eosinophils % 2.1 %; Hemoglobin 13.4 g/dL (11.5-15.3); Lymphocytes # 2.6 10^3/uL (0.8-4.8); Lymphocytes % 38.3 %; Mean Corpuscular HGB Conc 34.4 g/dL (30.0-36.0); Mean Corpuscular Hemoglobin 31.8 pg (28.0-34.0); Mean Corpuscular Volume 92.4 fl (81-99); Mean Platelet Volume 8.9 fL (7.4-10.4); Monocytes # 0.5 10^3/uL (0.2-0.9); Monocytes % 7.7 %; Neutrophils # 3.39 10^3/uL (1.8-7.7); Neutrophils % 50.6 %; Nucleated Red Blood Cells % 0 %; Platelet Count 248 10^3/cmm (130-400); Red Blood Count 4.22 10^6/uL (4.1-5.3); Red Cell Distribution Width 12.2 % (12.1-15.1); White Blood Count 6.7 10^3/uL (4.0-10.0)
[2021-10-26 13:16] LABS: Alanine Aminotransferase 37 U/L (0-33); Albumin Level 4.2 g/dL (3.5-5.2); Alkaline Phosphatase 125 IU/L (35-105); Anion Gap 15.1 (5-19); Aspartate Amino Transferase 20 U/L (0-32); Blood Urea Nitrogen 18 mg/dL (8-23); Calcium 9.4 mg/dL (8.5-10.5); Carbon Dioxide 27 mmol/L (22-29); Chloride 102 mmol/L (98-107); Globulin 2.8 g/dL (1.3-4.6); Glomerular Filtration Rate 41.8 mL/min (90-130); Glucose 152 mg/dL (65-115); Osmolality Calculated 295 mOsm/kg (285-295); Potassium 4.1 mmol/L (3.5-5.1); Sodium 140 mmol/L (136-145); Total Bilirubin 0.3 mg/dL (0.15-1.2)
== END 2021-10-29 23:59 | disposition home or self-care (01) ==
PROVIDERS: Internal Medicine Hematology & Oncology; PCP Nurse Practitioner Family; Visit Provider Nurse Practitioner Family
DX: C50.812 Malignant neoplasm of overlapping sites of left female breast (principal); Z79.818 Long term (current) use of other agents affecting estrogen receptors and estrogen levels; Z17.0 Estrogen receptor positive status [ER+]; Z90.13 Acquired absence of bilateral breasts and nipples; E03.9 Hypothyroidism, unspecified; G62.0 Drug-induced polyneuropathy; T45.1X5A Adverse effect of antineoplastic and immunosuppressive drugs, initial encounter; F32.A Depression, unspecified; M85.80 Other specified disorders of bone density and structure, unspecified site; Z92.21 Personal history of antineoplastic chemotherapy
CPT/HCPCS: 36415; 80053; 85025; 99214

== ENCOUNTER 2021-10-26 16:09 | Outpatient (CLI) | payer MEDICAID, SELFPAY ==
--- NOTE | 2021-10-26 16:00 | MR_ITS ---
WS: [id number] MRI HEAD WITHOUT CONTRAST TECHNIQUE: Sagittal T1, T2 axial, T2 axial FLAIR, axial and coronal T1 images, axial susceptibility w eighted imaging, axial diffusion weighted images, and coronal T2 images were obtained. CLINICAL INFORMATION: G45.9 - Transient cerebral ischemic attack, unspecified COMPARISON: CT January 23, 2021 MRI July 11, 2020. MRI June 08, 2019 FINDINGS: No evidence of restricted diffusion to suggest acute ischemia. Ventricular system and basilar cistern s are patent. Mild white matter changes likely small vessel disease in a patient this age. This is un changed from previous. Mild parenchymal volume loss. A few tiny chronic lacunar infarcts RIGHT cerebe llum. Normal vascular flow voids at the skull base. No extra-axial fluid collections. No evidence of mass or mass effect. Stable prominent perivascular space LEFT basal ganglia unchanged since 2013. Paranasal sinuses are well aerated. Mild mucosal thickening LEFT mastoid air cells. No hemosiderin on susceptibly weighted images. Normal optic chiasm and pituitary infundibulum. Mild symmetric atrophy temporal lobes and hippocampal formations are unchanged. Normal cavernous sinuses and Meckel's cave. Overall no significant changes compared to July 11, 2020. MR/MR head wo con* [id number] IMPRESSION: 1. No evidence of restricted diffusion to suggest acute ischemia. 2. Mild small vessel changes. Mild parenchymal volume loss. 3. A few tiny chronic lacunar infarcts RIGHT cerebellum. 4. Mild mucosal thickening LEFT mastoid air cells. 5. No hemosiderin on susceptibly weighted images.. 6. Incidental unchanged prominent perivascular space left basal ganglia.
== END 2021-10-26 16:10 | disposition home or self-care (01) ==
LOC: RAD 16:10
PROVIDERS: PCP Nurse Practitioner Family; Visit Provider Nurse Practitioner
DX: G45.9 Transient cerebral ischemic attack, unspecified (principal); I63.81 Other cerebral infarction due to occlusion or stenosis of small artery
CPT/HCPCS: 70551

== ENCOUNTER → 2021-10-30 13:15 | Outpatient (BNVA) | payer MEDICAID, SELFPAY | PROVIDERS: PCP Nurse Practitioner Family; Visit Provider Nurse Practitioner Family | DX: R50.9 Fever, unspecified (principal) | CPT/HCPCS: 81000; 81003 ==

== ENCOUNTER → 2021-10-31 07:49 | Outpatient (BNVA) | payer MEDICAID, SELFPAY | PROVIDERS: PCP Nurse Practitioner Family; Visit Provider Nurse Practitioner Family | DX: R50.9 Fever, unspecified (principal); R82.998 Other abnormal findings in urine | CPT/HCPCS: 87086 ==

== ENCOUNTER → 2021-11-20 14:19 | Outpatient (BNVA) | payer MEDICAID, SELFPAY | PROVIDERS: PCP Nurse Practitioner Family; Visit Provider Nurse Practitioner | DX: R26.89 Other abnormalities of gait and mobility (principal); I69.398 Other sequelae of cerebral infarction | CPT/HCPCS: 99213; 99214 ==

== ENCOUNTER 2022-01-29 13:01 | Oncology outpatient (recurring) (ONCR) | payer MEDICAID, SELFPAY ==
[2022-01-29 13:54] LABS: Basophils # 0.1 10^3/uL (0.0-0.1); Basophils % 0.8 %; Eosinophils # 0.1 10^3/uL (0.0-0.8); Eosinophils % 1.5 %; Hematocrit 37.9 % (37.0-47.0); Hemoglobin 12.9 g/dL (11.5-15.3); Lymphocytes # 2.2 10^3/uL (0.8-4.8); Lymphocytes % 23.9 %; Mean Corpuscular Hemoglobin 32.4 pg (28.0-34.0); Mean Corpuscular Volume 95.2 fl (81-99); Mean Platelet Volume 8.8 fL (7.4-10.4); Monocytes # 0.6 10^3/uL (0.2-0.9); Monocytes % 6.8 %; Neutrophils # 6.16 10^3/uL (1.8-7.7); Neutrophils % 66.5 %; Nucleated Red Blood Cells % 0 %; Platelet Count 226 10^3/cmm (130-400); Red Blood Count 3.98 10^6/uL (4.1-5.3); Red Cell Distribution Width 12.4 % (12.1-15.1); White Blood Count 9.3 10^3/uL (4.0-10.0)
[2022-01-29 14:14] LABS: Alanine Aminotransferase 42 U/L (0-33); Albumin Level 3.8 g/dL (3.5-5.2); Alkaline Phosphatase 99 U/L (35-105); Anion Gap 11.2 (5-19); Aspartate Amino Transferase 22 U/L (0-32); Blood Urea Nitrogen 13 mg/dL (8-23); Calcium 9.5 mg/dL (8.5-10.5); Carbon Dioxide 28 mmol/L (22-29); Chloride 100 mmol/L (98-107); Glomerular Filtration Rate 41.6 mL/min (90-130); Glucose 116 mg/dL (65-115); Osmolality Calculated 283 mOsm/kg (285-295); Potassium 3.2 mmol/L (3.5-5.1); Sodium 136 mmol/L (136-145); Total Bilirubin 0.3 mg/dL (0.15-1.2); Total Protein 6.8 g/dL (6.6-8.7)
== END 2022-01-29 23:59 | disposition home or self-care (01) ==
PROVIDERS: Internal Medicine Hematology & Oncology; PCP Nurse Practitioner Family; Visit Provider Nurse Practitioner Family
DX: C50.812 Malignant neoplasm of overlapping sites of left female breast (principal); C77.3 Secondary and unspecified malignant neoplasm of axilla and upper limb lymph nodes; Z17.0 Estrogen receptor positive status [ER+]; Z90.13 Acquired absence of bilateral breasts and nipples; Z79.811 Long term (current) use of aromatase inhibitors; R59.0 Localized enlarged lymph nodes; E87.6 Hypokalemia
CPT/HCPCS: 36415; 80053; 85025; 99214

== ENCOUNTER 2022-02-12 15:59 | Outpatient (CLI) | payer MEDICAID, SELFPAY ==
--- NOTE | 2022-02-12 16:15 | CT_ITS ---
WS: [id number] CTA THORACIC AORTA WITH AND WITHOUT CONTRAST. HISTORY: Thoracic Aortic Aneurysm TECHNIQUE: CT imaging of the thorax is performed with and without contrast. After noncontrast imaging is performed, CT angiogram is performed during injection of Omnipaque 350; 95 mL IV.. Sagittal and c oronal reconstructions, sagittal and coronal MIP imaging is submitted. All CT scans at [facility] use at least one of these dose optimization techniques: automated exposure control; mA and/or kV adjustment per patient size (includes targeted exams where dose is matched to clinical indication); or iterative reconstruction. DLP: 1343.34 mGy.cm COMPARISON: 06/13/2021, 12/12/2020, 04/12/2019 Good contrast opacification of the aorta. Moderate calcification thoracic aorta at the level of the a rch. There is a focal aortic bulging extending anterior and posterior from the mid to distal arch. Sa ccular aneurysm has been previously described. The largest component is stable at 3.0 x 2.3 cm. The g reat vessels arise normally from the arch. There is a bovine arch. The ascending aorta is normal aspen esther. The descending aorta is normal caliber. Heart is normal size. No pericardial or pleural effusions. Stable focal area of groundglass attenuati on at the RIGHT apex. No pulmonary mass or nodule. No pneumonia. No mediastinal or hilar adenopathy. No axillary adenopathy. Enlarged bilateral enhancing mildly heterogeneous thyroid. No discrete nodule. Small hiatal hernia. P rior cholecystectomy. 1.5 cm hepatic cyst. No adrenal mass. No destructive bone lesions. CT/CT angio chest [id number] IMPRESSION: 1. 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 No change since 04/12/2019. 2. Normal diameter ascending aorta. 3. No aortic dissection. 4. Stable enlarged multinodular goiter. 5. No mediastinal or hilar adenopathy.
[2022-02-12] MEDS: iohexol 350 mg/mL 500 mL Btl (per mL) IV (16:28)
== END 2022-02-12 16:00 | disposition home or self-care (01) ==
LOC: RAD 15:59
PROVIDERS: PCP Nurse Practitioner Family; Visit Provider Thoracic Surgery (Cardiothoracic Vascular Surgery)
DX: E04.2 Nontoxic multinodular goiter; I71.20 Thoracic aortic aneurysm, without rupture, unspecified
CPT/HCPCS: 71275; Q9967

== ENCOUNTER → 2022-03-02 11:06 | Outpatient (BNVA) | payer MEDICAID, SELFPAY | PROVIDERS: PCP Nurse Practitioner Family; Visit Provider Nurse Practitioner Family | DX: J02.9 Acute pharyngitis, unspecified (principal); R05.9 Cough, unspecified | CPT/HCPCS: 87400; 87420; 87426 ==

== ENCOUNTER → 2022-05-07 17:21 | Outpatient (BNVA) | payer MEDICAID, SELFPAY | PROVIDERS: PCP Nurse Practitioner Family; Visit Provider Nurse Practitioner Family | DX: E06.3 Autoimmune thyroiditis (principal); R61 Generalized hyperhidrosis; G47.30 Sleep apnea, unspecified; W06.XXXA Fall from bed, initial encounter; Z68.28 Body mass index [BMI] 28.0-28.9, adult | CPT/HCPCS: 80053; 80061; 84439; 84443; 84480 ==

== ENCOUNTER 2022-08-15 12:26 | Oncology outpatient (recurring) (ONCR) | payer MEDICAID, SELFPAY ==
[2022-08-15 13:23] LABS: Basophils # 0.1 10^3/uL (0.0-0.1); Basophils % 1.3 %; Eosinophils # 0.2 10^3/uL (0.0-0.8); Eosinophils % 2.1 %; Hematocrit 38.8 % (37.0-47.0); Hemoglobin 12.8 g/dL (11.5-15.3); Lymphocytes # 2.5 10^3/uL (0.8-4.8); Lymphocytes % 35.3 %; Mean Corpuscular Hemoglobin 32.1 pg (28.0-34.0); Mean Corpuscular Volume 97.2 fl (81-99); Mean Platelet Volume 8.9 fL (7.4-10.4); Monocytes # 0.6 10^3/uL (0.2-0.9); Monocytes % 8.6 %; Neutrophils # 3.75 10^3/uL (1.8-7.7); Neutrophils % 52.3 %; Nucleated Red Blood Cells % 0 %; Platelet Count 263 10^3/cmm (130-400); Red Blood Count 3.99 10^6/uL (4.1-5.3); Red Cell Distribution Width 12.7 % (12.1-15.1); White Blood Count 7.2 10^3/uL (4.0-10.0)
[2022-08-15 13:51] LABS: Alanine Aminotransferase 40 U/L (0-33); Albumin Level 4.2 g/dL (3.5-5.2); Alkaline Phosphatase 96 U/L (35-105); Anion Gap 14.2 (5-19); Aspartate Amino Transferase 25 U/L (0-32); Blood Urea Nitrogen 13 mg/dL (8-23); Calcium 9.6 mg/dL (8.5-10.5); Carbon Dioxide 28 mmol/L (22-29); Chloride 101 mmol/L (98-107); Globulin 2.9 g/dL (1.3-4.6); Glomerular Filtration Rate 45.7 mL/min (90-130); Glucose 118 mg/dL (65-115); Osmolality Calculated 291 mOsm/kg (285-295); Potassium 3.2 mmol/L (3.5-5.1); Sodium 140 mmol/L (136-145); Total Bilirubin 0.3 mg/dL (0.15-1.2); Total Protein 7.1 g/dL (6.6-8.7)
[2022-08-15 16:14] LABS: Magnesium 1.8 mg/dL (1.7-2.3)
== END 2022-08-29 23:59 | disposition home or self-care (01) ==
PROVIDERS: Internal Medicine Hematology & Oncology; Nurse Practitioner Family; PCP Nurse Practitioner Family; Visit Provider Nurse Practitioner
DX: C50.812 Malignant neoplasm of overlapping sites of left female breast (principal); Z17.0 Estrogen receptor positive status [ER+]; Z90.13 Acquired absence of bilateral breasts and nipples; C77.3 Secondary and unspecified malignant neoplasm of axilla and upper limb lymph nodes; R53.0 Neoplastic (malignant) related fatigue; R63.4 Abnormal weight loss; Z68.28 Body mass index [BMI] 28.0-28.9, adult; R23.2 Flushing; F32.9 Major depressive disorder, single episode, unspecified; F41.9 Anxiety disorder, unspecified; M25.59 Pain in other specified joint; R51.9 Headache, unspecified; A18.01 Tuberculosis of spine; M85.89 Other specified disorders of bone density and structure, multiple sites; E87.6 Hypokalemia; Z79.818 Long term (current) use of other agents affecting estrogen receptors and estrogen levels; Z79.899 Other long term (current) drug therapy
CPT/HCPCS: 36415; 80053; 83735; 85025; 99214

== ENCOUNTER 2022-09-04 14:33 | Outpatient (CLI) | payer MEDICAID, SELFPAY ==
--- NOTE | 2022-09-04 14:30 | XR_ITS ---
WS: [id number] DEXA (DUAL ENERGY X-RAY ABSORPTIOMETRY) Bone mineral density was performed using a Theravance machine. HISTORY: Aromatase inhibitor use for prior breast cancer COMPARISON: 01/15/2020 Lumbar spine BMD (L1-L4): 1.087 g/cm2 T score: -0.8 Z score: -0.5 Total hip BMD: Left: 0.857 g/cm2. T score: -1.2 Z score: -0.9 Right: 0.824 g/cm2. T score: -1.5 Z score: -1.2 10 year probability of a major osteoporotic fracture is 8.8%. Compared to the prior study from 01/15/2020. Lumbar spine bone mineral density has increased by 6.3%. Bilateral hips bone mineral density has increased by 2.4%. XR/XR DEXA axial skeleton* [id number] IMPRESSION: OSTEOPENIA based upon the WHO classification for females. Significant increase in bone mineral density within the lumbar spine and hips s elda the prior study.
== END 2022-09-04 14:34 | disposition home or self-care (01) ==
LOC: RAD 14:35
PROVIDERS: PCP Nurse Practitioner Family; Visit Provider Nurse Practitioner Family
DX: Z79.811 Long term (current) use of aromatase inhibitors (principal); M85.80 Other specified disorders of bone density and structure, unspecified site; Z85.3 Personal history of malignant neoplasm of breast
CPT/HCPCS: 77080

== ENCOUNTER → 2022-09-17 11:05 | Outpatient (BNVA) | payer MEDICAID, SELFPAY | PROVIDERS: PCP Nurse Practitioner Family; Visit Provider Nurse Practitioner Family | DX: Z53.9 Procedure and treatment not carried out, unspecified reason (principal) | CPT/HCPCS: 99214 ==

== ENCOUNTER 2022-09-25 09:12 | Oncology outpatient (recurring) (ONCR) | payer MEDICAID, SELFPAY ==
[2022-09-17 11:18] VITALS: BP 131/79; PULSE 80; RESP 18; TEMP 36.7; O2SAT 98
[2022-09-17 11:31] LABS: Basophils # 0.1 10^3/uL (0.0-0.1); Eosinophils # 0.1 10^3/uL (0.0-0.8); Eosinophils % 1.7 %; Hemoglobin 13.5 g/dL (11.5-15.3); Lymphocytes # 2.4 10^3/uL (0.8-4.8); Lymphocytes % 29.8 %; Mean Corpuscular HGB Conc 32.9 g/dL (30.0-36.0); Mean Corpuscular Hemoglobin 31.6 pg (28.0-34.0); Mean Platelet Volume 8.7 fL (7.4-10.4); Monocytes # 0.5 10^3/uL (0.2-0.9); Neutrophils # 5.01 10^3/uL (1.8-7.7); Neutrophils % 61.3 %; Nucleated Red Blood Cells % 0 %; Platelet Count 279 10^3/cmm (130-400); Red Blood Count 4.27 10^6/uL (4.1-5.3); Red Cell Distribution Width 12.2 % (12.1-15.1); White Blood Count 8.2 10^3/uL (4.0-10.0)
[2022-09-17 11:51] LABS: Alanine Aminotransferase 36 U/L (0-33); Albumin Level 4.3 g/dL (3.5-5.2); Alkaline Phosphatase 107 U/L (35-105); Anion Gap 14.4 (5-19); Aspartate Amino Transferase 25 U/L (0-32); Blood Urea Nitrogen 11 mg/dL (8-23); Calcium 9.5 mg/dL (8.5-10.5); Carbon Dioxide 26 mmol/L (22-29); Chloride 101 mmol/L (98-107); Globulin 2.9 g/dL (1.3-4.6); Glomerular Filtration Rate 41.6 mL/min (90-130); Glucose 130 mg/dL (65-115); Osmolality Calculated 287 mOsm/kg (285-295); Potassium 3.4 mmol/L (3.5-5.1); Sodium 138 mmol/L (136-145); Total Bilirubin 0.3 mg/dL (0.15-1.2); Total Protein 7.2 g/dL (6.6-8.7)
[2022-09-25 11:04] LABS: Potassium 3.8 mmol/L (3.5-5.1)
== END 2022-09-28 23:59 | disposition home or self-care (01) ==
PROVIDERS: Nurse Practitioner Family; PCP Nurse Practitioner Family; Visit Provider Nurse Practitioner
DX: C50.812 Malignant neoplasm of overlapping sites of left female breast (principal); Z17.0 Estrogen receptor positive status [ER+]; Z90.13 Acquired absence of bilateral breasts and nipples; C77.3 Secondary and unspecified malignant neoplasm of axilla and upper limb lymph nodes; M85.89 Other specified disorders of bone density and structure, multiple sites; R74.01 Elevation of levels of liver transaminase levels; E87.6 Hypokalemia; G89.3 Neoplasm related pain (acute) (chronic); Z79.811 Long term (current) use of aromatase inhibitors; Z79.891 Long term (current) use of opiate analgesic; Z79.899 Other long term (current) drug therapy
CPT/HCPCS: 36415; 80053; 84132; 85025; 99213; 99214

== ENCOUNTER 2022-10-16 12:13 | Oncology outpatient (recurring) (ONCR) | payer MEDICAID, SELFPAY ==
[2022-10-16 12:20] VITALS: BP 112/74; PULSE 84; RESP 18; TEMP 36.6; O2SAT 98
[2022-10-16 12:28] LABS: Basophils # 0.1 10^3/uL (0.0-0.1); Basophils % 0.9 %; Eosinophils # 0.1 10^3/uL (0.0-0.8); Eosinophils % 1.6 %; Hematocrit 41.9 % (37.0-47.0); Hemoglobin 13.5 g/dL (11.5-15.3); Lymphocytes # 3.3 10^3/uL (0.8-4.8); Lymphocytes % 37.7 %; Mean Corpuscular HGB Conc 32.2 g/dL (30.0-36.0); Mean Corpuscular Hemoglobin 30.8 pg (28.0-34.0); Mean Corpuscular Volume 95.7 fl (81-99); Mean Platelet Volume 8.7 fL (7.4-10.4); Monocytes # 0.7 10^3/uL (0.2-0.9); Monocytes % 7.6 %; Neutrophils # 4.58 10^3/uL (1.8-7.7); Nucleated Red Blood Cells % 0 %; Platelet Count 273 10^3/cmm (130-400); Red Blood Count 4.38 10^6/uL (4.1-5.3); White Blood Count 8.8 10^3/uL (4.0-10.0)
[2022-10-16 13:26] LABS: Alanine Aminotransferase 38 U/L (0-33); Albumin Level 4.4 g/dL (3.5-5.2); Alkaline Phosphatase 98 U/L (35-105); Anion Gap 14.6 (5-19); Aspartate Amino Transferase 28 U/L (0-32); Blood Urea Nitrogen 16 mg/dL (8-23); Calcium 9.5 mg/dL (8.5-10.5); Carbon Dioxide 26 mmol/L (22-29); Chloride 102 mmol/L (98-107); Glomerular Filtration Rate 50.5 mL/min (90-130); Glucose 91 mg/dL (65-115); Osmolality Calculated 289 mOsm/kg (285-295); Potassium 3.6 mmol/L (3.5-5.1); Sodium 139 mmol/L (136-145); Total Bilirubin 0.3 mg/dL (0.15-1.2); Total Protein 7.4 g/dL (6.6-8.7)
== END 2022-10-29 23:59 | disposition home or self-care (01) ==
PROVIDERS: Nurse Practitioner Family; PCP Nurse Practitioner Family; Visit Provider Nurse Practitioner
DX: C50.812 Malignant neoplasm of overlapping sites of left female breast (principal); Z17.0 Estrogen receptor positive status [ER+]; Z90.13 Acquired absence of bilateral breasts and nipples; C77.3 Secondary and unspecified malignant neoplasm of axilla and upper limb lymph nodes; M85.89 Other specified disorders of bone density and structure, multiple sites; R23.2 Flushing; R53.1 Weakness; R53.0 Neoplastic (malignant) related fatigue; Z79.811 Long term (current) use of aromatase inhibitors; Z79.899 Other long term (current) drug therapy
CPT/HCPCS: 36415; 80053; 85025; 99214

== ENCOUNTER → 2022-11-23 15:29 | Outpatient (BNVA) | payer MEDICAID, SELFPAY | PROVIDERS: PCP Nurse Practitioner Family; Visit Provider Nurse Practitioner Family | DX: C50.919 Malignant neoplasm of unspecified site of unspecified female breast (principal); E87.6 Hypokalemia | CPT/HCPCS: 80053; 85025 ==

== ENCOUNTER → 2023-02-20 16:06 | Outpatient (BNVA) | payer MEDICAID, SELFPAY | PROVIDERS: PCP Nurse Practitioner Family; Visit Provider Nurse Practitioner Family | DX: E53.8 Deficiency of other specified B group vitamins (principal); E04.9 Nontoxic goiter, unspecified; E78.00 Pure hypercholesterolemia, unspecified; E55.9 Vitamin D deficiency, unspecified; R73.9 Hyperglycemia, unspecified | CPT/HCPCS: 80053; 80061; 82306; 82607; 83036; 84439; 84443; 84480 ==

== ENCOUNTER 2023-05-07 13:06 | Oncology outpatient (recurring) (ONCR) | payer MEDICAID, SELFPAY ==
[2023-05-07 13:29] LABS: Basophils # 0.1 10^3/uL (0.0-0.1); Basophils % 1.2 %; Eosinophils # 0.1 10^3/uL (0.0-0.8); Eosinophils % 1.5 %; Hematocrit 42.6 % (36-47); Lymphocytes % 40.1 %; Mean Corpuscular HGB Conc 33.1 g/dL (30-55); Mean Corpuscular Hemoglobin 31.3 pg (27-33); Mean Corpuscular Volume 94.7 fl (85-98); Mean Platelet Volume 8.6 fL (7.4-10.4); Monocytes # 0.5 10^3/uL (0.2-0.9); Monocytes % 6.4 %; Neutrophils # 3.79 10^3/uL (1.8-7.7); Neutrophils % 50.4 %; Nucleated Red Blood Cells % 0 %; Platelet Count 259 10^3/cmm (157-399); Red Cell Distribution Width 12.3 % (12.1-15.1); White Blood Count 7.51 10^3/uL (3.29-11.43)
[2023-05-07 13:46] LABS: Alanine Aminotransferase 43 U/L (0-33); Albumin Level 4.2 g/dL (3.5-5.2); Alkaline Phosphatase 105 U/L (35-105); Anion Gap 14.6 (5-19); Aspartate Amino Transferase 27 U/L (0-32); Blood Urea Nitrogen 16 mg/dL (8-23); Calcium 9.4 mg/dL (8.5-10.5); Carbon Dioxide 27 mmol/L (22-29); Chloride 102 mmol/L (98-107); Globulin 3.1 g/dL (1.3-4.6); Glomerular Filtration Rate 41.5 mL/min (90-130); Glucose 152 mg/dL (65-115); Osmolality Calculated 294 mOsm/kg (285-295); Potassium 3.6 mmol/L (3.5-5.1); Sodium 140 mmol/L (136-145); Total Bilirubin 0.5 mg/dL (0.15-1.2); Total Protein 7.3 g/dL (6.6-8.7)
== END 2023-05-30 23:59 | disposition home or self-care (01) ==
PROVIDERS: Nurse Practitioner Family; PCP Nurse Practitioner Family; Visit Provider Nurse Practitioner
DX: C50.812 Malignant neoplasm of overlapping sites of left female breast (principal); E03.9 Hypothyroidism, unspecified; F32.A Depression, unspecified; Z90.13 Acquired absence of bilateral breasts and nipples; Z17.0 Estrogen receptor positive status [ER+]; R07.9 Chest pain, unspecified; G90.A Postural orthostatic tachycardia syndrome [POTS]; R53.1 Weakness; R53.83 Other fatigue; R06.02 Shortness of breath; K21.9 Gastro-esophageal reflux disease without esophagitis; D22.5 Melanocytic nevi of trunk; Z87.891 Personal history of nicotine dependence; Z79.899 Other long term (current) drug therapy; M85.80 Other specified disorders of bone density and structure, unspecified site; Z91.148 Patient's other noncompliance with medication regimen for other reason; Z53.9 Procedure and treatment not carried out, unspecified reason
CPT/HCPCS: 36415; 80053; 85025; 99214

== ENCOUNTER 2023-06-18 10:36 | Oncology outpatient (recurring) (ONCR) | payer MEDICAID, SELFPAY ==
[2023-06-18 11:10] LABS: Basophils # 0.1 10^3/uL (0.0-0.1); Basophils % 1.1 %; Eosinophils # 0.1 10^3/uL (0.0-0.8); Eosinophils % 1.3 %; Hematocrit 41.5 % (36-47); Lymphocytes # 2.9 10^3/uL (0.8-4.8); Lymphocytes % 35.5 %; Mean Corpuscular Hemoglobin 30.6 pg (27-33); Mean Corpuscular Volume 95.6 fl (85-98); Mean Platelet Volume 8.7 fL (7.4-10.4); Monocytes # 0.6 10^3/uL (0.2-0.9); Monocytes % 7.7 %; Neutrophils # 4.45 10^3/uL (1.8-7.7); Neutrophils % 54.2 %; Nucleated Red Blood Cells % 0 %; Platelet Count 258 10^3/cmm (157-399); Red Blood Count 4.34 10^6/uL (3.85-5.65); Red Cell Distribution Width 12.3 % (12.1-15.1); White Blood Count 8.22 10^3/uL (3.29-11.43)
[2023-06-18 11:29] LABS: Alanine Aminotransferase 39 U/L (0-33); Albumin Level 4.4 g/dL (3.5-5.2); Alkaline Phosphatase 112 U/L (35-105); Aspartate Amino Transferase 27 U/L (0-32); Blood Urea Nitrogen 17 mg/dL (8-23); Calcium 9.3 mg/dL (8.5-10.5); Carbon Dioxide 27 mmol/L (22-29); Chloride 102 mmol/L (98-107); Globulin 2.7 g/dL (1.3-4.6); Glomerular Filtration Rate 50.3 mL/min (90-130); Glucose 156 mg/dL (65-115); Osmolality Calculated 295 mOsm/kg (285-295); Sodium 140 mmol/L (136-145); Total Bilirubin 0.3 mg/dL (0.15-1.2); Total Protein 7.1 g/dL (6.6-8.7)
[2023-06-18 11:45] LABS: Anion Gap 15.1 (5-19); Potassium 4.1 mmol/L (3.5-5.1)
== END 2023-06-30 23:59 | disposition home or self-care (01) ==
PROVIDERS: Nurse Practitioner Family; PCP Nurse Practitioner Family; Visit Provider Nurse Practitioner
DX: C50.812 Malignant neoplasm of overlapping sites of left female breast (principal); Z17.0 Estrogen receptor positive status [ER+]; E03.9 Hypothyroidism, unspecified; F32.A Depression, unspecified; Z90.13 Acquired absence of bilateral breasts and nipples; R07.9 Chest pain, unspecified; G90.A Postural orthostatic tachycardia syndrome [POTS]; R53.1 Weakness; R53.83 Other fatigue; R06.02 Shortness of breath; K21.9 Gastro-esophageal reflux disease without esophagitis; D22.5 Melanocytic nevi of trunk; Z87.891 Personal history of nicotine dependence; Z79.899 Other long term (current) drug therapy; M85.80 Other specified disorders of bone density and structure, unspecified site; Z91.148 Patient's other noncompliance with medication regimen for other reason; Z53.9 Procedure and treatment not carried out, unspecified reason
CPT/HCPCS: 36415; 80053; 85025; 99214

== ENCOUNTER 2023-06-25 13:37 | Outpatient (CLI) | payer MEDICAID, SELFPAY ==
--- NOTE | 2023-06-25 14:30 | US_ITS ---
WS: [id number] INDICATION: Palpable nodule RIGHT neck TECHNIQUE: Ultrasound soft tissue FINDINGS: Ultrasound soft tissue area of concern posterior neck. In the area of concern there is a sl ightly prominent and normal-appearing lymph node measuring 9 x 5 mm. No other suspicious findings. IMPRESSION: Slightly prominent but otherwise normal node in the area of concern
== END 2023-06-25 13:38 | disposition home or self-care (01) ==
LOC: RAD 13:38
PROVIDERS: PCP Nurse Practitioner Family; Visit Provider Nurse Practitioner Family
DX: R59.0 Localized enlarged lymph nodes
CPT/HCPCS: 76536

== ENCOUNTER 2024-01-02 12:38 | Oncology outpatient (recurring) (ONCR) | payer MEDICAID, SELFPAY ==
[2024-01-02 13:17] LABS: Basophils # 0.1 10^3/uL (0.0-0.1); Basophils % 0.9 %; Eosinophils # 0.2 10^3/uL (0.0-0.8); Eosinophils % 1.9 %; Hematocrit 42.9 % (36-47); Lymphocytes % 34.7 %; Mean Corpuscular HGB Conc 32.9 g/dL (30-55); Mean Corpuscular Hemoglobin 31.5 pg (27-33); Mean Corpuscular Volume 95.8 fl (85-98); Mean Platelet Volume 8.6 fL (7.4-10.4); Monocytes # 0.7 10^3/uL (0.2-0.9); Monocytes % 8.2 %; Neutrophils # 4.61 10^3/uL (1.8-7.7); Neutrophils % 53.9 %; Nucleated Red Blood Cells % 0 %; Platelet Count 272 10^3/cmm (157-399); Red Blood Count 4.48 10^6/uL (3.85-5.65); White Blood Count 8.55 10^3/uL (3.29-11.43)
[2024-01-02 13:33] LABS: Alanine Aminotransferase 33 U/L (0-33); Albumin Level 4.3 g/dL (3.5-5.2); Alkaline Phosphatase 104 U/L (35-105); Anion Gap 14.2 (5-19); Aspartate Amino Transferase 24 U/L (0-32); Blood Urea Nitrogen 14 mg/dL (8-23); Calcium 9.3 mg/dL (8.5-10.5); Carbon Dioxide 28 mmol/L (22-29); Chloride 103 mmol/L (98-107); Globulin 3.1 g/dL (1.3-4.6); Glomerular Filtration Rate 41.4 mL/min (90-130); Glucose 104 mg/dL (65-115); Osmolality Calculated 293 mOsm/kg (285-295); Potassium 4.2 mmol/L (3.5-5.1); Sodium 141 mmol/L (136-145); Total Bilirubin 0.3 mg/dL (0.15-1.2); Total Protein 7.4 g/dL (6.6-8.7)
== END 2024-01-30 23:59 | disposition home or self-care (01) ==
PROVIDERS: Nurse Practitioner Family; PCP Nurse Practitioner Family; Visit Provider Nurse Practitioner
DX: C50.012 Malignant neoplasm of nipple and areola, left female breast (principal); Z17.0 Estrogen receptor positive status [ER+]; Z87.891 Personal history of nicotine dependence; Z90.13 Acquired absence of bilateral breasts and nipples; Z79.899 Other long term (current) drug therapy
CPT/HCPCS: 36415; 80053; 85025; 99214

== ENCOUNTER → 2024-05-06 10:59 | Outpatient (BNVA) | payer MEDICAID, SELFPAY | PROVIDERS: PCP Nurse Practitioner Family; Visit Provider Nurse Practitioner Family | DX: E55.9 Vitamin D deficiency, unspecified (principal); E78.00 Pure hypercholesterolemia, unspecified; R30.9 Painful micturition, unspecified; E53.8 Deficiency of other specified B group vitamins | CPT/HCPCS: 80053; 80061; 81000; 82306; 82607; 84443; 85025; 87086 ==

== ENCOUNTER 2024-07-30 11:42 | Oncology outpatient (recurring) (ONCR) | payer MEDICAID, SELFPAY ==
[2024-07-30 12:32] LABS: Basophils # 0.1 10^3/uL (0.0-0.1); Eosinophils # 0.2 10^3/uL (0.0-0.8); Eosinophils % 2.2 %; Hematocrit 40.7 % (36-47); Lymphocytes # 2.5 10^3/uL (0.8-4.8); Lymphocytes % 33.7 %; Mean Corpuscular HGB Conc 32.4 g/dL (30-55); Mean Corpuscular Hemoglobin 31.2 pg (27-33); Mean Corpuscular Volume 96.2 fl (85-98); Mean Platelet Volume 8.5 fL (7.4-10.4); Monocytes # 0.6 10^3/uL (0.2-0.9); Monocytes % 7.8 %; Neutrophils # 4.01 10^3/uL (1.8-7.7); Nucleated Red Blood Cells % 0 %; Platelet Count 275 10^3/cmm (157-399); Red Blood Count 4.23 10^6/uL (3.85-5.65); Red Cell Distribution Width 12.2 % (12.1-15.1); White Blood Count 7.29 10^3/uL (3.29-11.43)
[2024-07-30 13:06] LABS: Alanine Aminotransferase 25 U/L (0-33); Albumin Level 4.3 g/dL (3.5-5.2); Alkaline Phosphatase 86 U/L (35-105); Anion Gap 14.1 (5-19); Aspartate Amino Transferase 19 U/L (0-32); Blood Urea Nitrogen 15 mg/dL (8-23); Calcium 9.3 mg/dL (8.5-10.5); Carbon Dioxide 27 mmol/L (22-29); Chloride 104 mmol/L (98-107); Creatinine Clr Calc Pharmacy 66.6826; Free T4 Free Thyroxine 0.92 ng/dL (0.82-1.77); Globulin 3.1 g/dL (1.3-4.6); Glomerular Filtration Rate 50.2 mL/min (90-130); Glucose 87 mg/dL (65-115); Lactate Dehydrogenase 138 U/L (135-214); Osmolality Calculated 292 mOsm/kg (285-295); Potassium 4.1 mmol/L (3.5-5.1); Sodium 141 mmol/L (136-145); T3 Free 2.8 PG/ML (2.0-4.4); Thyroid Stimulating Hormone 5.88 uIU/mL (0.27-4.20); Total Bilirubin 0.3 mg/dL (0.15-1.2); Total Protein 7.4 g/dL (6.6-8.7)
[2024-07-30 13:27] LABS: CA 15-3 24.9 U/mL (0-25)
== END 2024-08-29 23:59 | disposition home or self-care (01) ==
PROVIDERS: Internal Medicine Hematology & Oncology; PCP Nurse Practitioner Family; Visit Provider Nurse Practitioner
DX: Z85.3 Personal history of malignant neoplasm of breast (principal); Z08 Encounter for follow-up examination after completed treatment for malignant neoplasm; R79.89 Other specified abnormal findings of blood chemistry; R03.0 Elevated blood-pressure reading, without diagnosis of hypertension; Z90.13 Acquired absence of bilateral breasts and nipples; Z92.23 Personal history of estrogen therapy; Z92.21 Personal history of antineoplastic chemotherapy
CPT/HCPCS: 36415; 80053; 83615; 84439; 84443; 84481; 85025; 86300; 99214

== ENCOUNTER 2024-09-16 13:35 | Oncology outpatient (recurring) (ONCR) | payer MEDICAID, SELFPAY ==
--- NOTE | 2024-09-16 14:30 | XR_ITS ---
WS: [email or web address] SCREENING DEXA SCAN [employer] CLINICAL INFORMATION: History of AI use COMPARISON: 2022 FINDINGS: The L1-L4 bone mineral density measures 1.096 g/cm2. This corresponds to a T score score of -0.7 and Z score of -0.1. Left femoral neck bone mineral density measures 0.842 g/cm2. This corresponds to a T score of -1.3 and Z score of -0.8. Right femoral neck bone mineral density measures 0.820 g/cm2. This corresponds to a T score -1.5of and Z score of -1.0. Mean femoral neck bone mineral density measures 0.831 g/cm2. This corresponds to a T score of -1.4 and Z score of -0.9. XR/XR DEXA axial skeleton* [id number] IMPRESSION: Normal bone mineralization lumbar spine. Osteopenia femoral necks Patient's FRAX calculated 10 year probability for major osteoporotic fracture i s 9.4% and osteoporotic hip fracture is 1.1%. Bone mineral density lumbar spine increased 0.8% Bone mineral density femoral necks decreased -1.2%
== END 2024-09-28 23:59 | disposition home or self-care (01) ==
LOC: ONCMED 13:35 → RAD 13:36 → ONCMED 09-17 09:08
PROVIDERS: PCP Nurse Practitioner Family; Visit Provider Nurse Practitioner Family
DX: C50.012 Malignant neoplasm of nipple and areola, left female breast (principal); Z17.0 Estrogen receptor positive status [ER+]; Z92.21 Personal history of antineoplastic chemotherapy; M85.88 Other specified disorders of bone density and structure, other site
CPT/HCPCS: 77080

== ENCOUNTER → 2024-10-21 11:18 | Outpatient (BNVA) | payer MEDICAID, SELFPAY | PROVIDERS: PCP Nurse Practitioner Family; Visit Provider Internal Medicine | DX: E06.3 Autoimmune thyroiditis (principal); E04.9 Nontoxic goiter, unspecified | CPT/HCPCS: 99204 ==

== ENCOUNTER → 2024-12-16 11:10 | Outpatient (BNVA) | payer MEDICAID, SELFPAY | PROVIDERS: PCP Nurse Practitioner Family; Visit Provider Internal Medicine | DX: E06.3 Autoimmune thyroiditis (principal) | CPT/HCPCS: 84439; 84443 ==

== ENCOUNTER → 2024-12-23 10:28 | Outpatient (BNVA) | payer MEDICAID, SELFPAY | PROVIDERS: PCP Nurse Practitioner Family; Visit Provider Internal Medicine | DX: E04.9 Nontoxic goiter, unspecified (principal); E06.3 Autoimmune thyroiditis | CPT/HCPCS: 99214 ==